=== PATIENT | female | born 1970 | race Caucasian/White ===

== ENCOUNTER → 2016-09-13 | Outpatient (CLI) | payer OTHER ==
[~2016-09-13] MED LIST: /MOXI40TA OR; AMIT25TA2; AMIT25TA2 OR; GENT0.3S34 OU; ISOVUE-M 300 61% 15ML VIAL (Q9967) As Ordered ONE; LIDOCAINE 1% SDV INJ 30 ML VIAL As Ordered ONE; MELOPOW; ONE A DAY WOMANS PO; OXYC-208 PO; OXYC10TA12 PO; SOMA350T PO; TPS CREAM TOP; TRAM50TA2; TRAM50TA2 OR; TRAM50TA2 PO; UNIS25TA2 PO; UNISOM; VICO5TAB; VICO5TAB OR; VICO5TAB PO; VITMTA PO; diazePAM 5 MG TAB As Ordered ONE; methylPREDNISolone SUSP 40 MG/ML (DEPO-medrol) VIAL (J1030) As Ordered ONE; multivitamin OR; oxyCODONE 5MG TAB As Ordered ONE; unisom OR; zipsor
--- NOTE | 2016-09-13 17:17 | REP ---
Sacrum and coccyx: Limited study two views: History: Caudal epidural for pain. 10 seconds of fluoroscopy time is reported. Findings: A sequence of two fluoroscopically obtained intraprocedural spot radiographs of the sacrum and coccyx demonstrate needle position and contrast injection associated with caudal epidural injection procedure. Signed by J Carlos Rucker MD 09/14/2016 08:15 A
--- NOTE | 2016-09-15 00:22 | ECWPNPC ---
PATIENT NAME: RITU TURCIOS : 1970 GENDER: FEMALE VISIT DATE: 09/13/2016 DISCHARGE DATE: 09/13/16 1446 VISIT LOCKED DATE TIME: PHYSICIAN: LORENE KOHLI RESOURCE: LORENE KOHLI REASON FOR APPOINTMENT 1. CAUDAL HISTORY OF PRESENT ILLNESS HISTORY OF PRESENT ILLNESS: PAIN THE PATIENT DESCRIBES THE PAIN... FALL RISK SCREENING: SCREENING :NO FALLS IN THE PAST YEAR CURRENT MEDICATIONS TAKING CARVEDILOL 25 MG TABLET ORALLY BID, NOTES: 09-13-16429 TAKING TRAMADOL HCL 50 MG TABLET 1 TABLET NEEDED ORALLY EVERY 6 HRS PRN PAIN MDD=4, NOTES: 09-13-16429 TAKING CYCLOBENZAPRINE HCL 10 MG TABLET 1 TABLET ORALLY THREE TIMES A DAY, NOTES: [id number] TAKING NORCO 10-325 MG TABLET 1 TABLET NEEDED ORALLY EVERY 6 HRS PRN MDD=4, NOTES: 09-13-16429 NOT-TAKING PYRIDIUM 100 MG TABLET 1 TABLET AFTER MEALS ORALLY THREE TIMES A DAY NOT-TAKING MOBIC 15 MG TABLET 1 TABLET ORALLY ONCE A DAY NOT-TAKING LOSARTAN POTASSIUM 100 MG TABLET 1 TABLET ORALLY ONCE A DAY NOT-TAKING NITROFURANTOIN-MACROBID 100 MG 7D 100 MG CAPSULE ONE CAPSULE ORALLY TWICE A DAY NOT-TAKING VESICARE 10 MG TABLET 1 TABLET ORALLY ONCE A DAY NOT-TAKING PYRIDIUM 200 MG TABLET 1 TABLET AFTER MEALS ORALLY THREE TIMES A DAY NOT-TAKING MACROBID 100 MG CAPSULE 1 CAPSULE WITH FOOD ORALLY EVERY 12 HRS MEDICATION LIST REVIEWED AND RECONCILED WITH THE PATIENT PAST MEDICAL HISTORY HEMATURIA KIDNEY STONES CHRONIC BACK PAIN - WITH DORSAL STIMULATOR 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 NEW PATIENT PAIN DIARY TODAY'S VISITNOTES FROM 0-10, WHAT LEVEL IS YOUR PAIN TODAY?0 PAIN CLINIC PFS, CLERGY, PUBLIC HEALTH REFERRALS PFS REFERRAL NEEDED?NO CLERGY REFERRAL NEEDED?NO PUBLIC HEALTH REFERRAL NEEDED?NO WAS THE PROVIDER NOTIFIED OF ANY PERTINENT INFO?NO PFS REFERRAL NEEDED?NO CLERGY REFERRAL NEEDED?NO PUBLIC HEALTH REFERRAL NEEDED?NO WAS THE PROVIDER NOTIFIED OF ANY PERTINENT INFO?NO REVIEW OF SYSTEMS CONSTITUTIONAL: ANY CHANGE IN YOUR MEDICAL CONDITION? NO . CHILLS NO . FEVER NO . INFECTION: DO YOU HAVE NEW INFECTIONS? NO . DO YOU HAVE HISTORY OF MRSA? NO . MUSCULOSKELETAL: ANY NEW PATTERNS OF PAIN OR NUMBNESS? NO . GASTROENTEROLOGY: ANY NEW CHANGE IN BOWEL CONTROL? NO . GENITOURINARY: ANY NEW CHANGE IN BLADDER CONTROL? NO . IS THERE A CHANCE YOU COULD BE ? NO . HEMATOLOGY/LYMPH: DO YOU TAKE ANY BLOOD THINNERS? (FOR EXAMPLE- COUMADIN, PLAVIX, AGGRENOX, PLATEL, PRADAXA, OR XARELTO) NO . WHEN WAS YOUR LAST DOSE? DATE: TIME: . NEUROLOGY: HAVE YOU FALLEN IN THE PAST 6 MONTHS? NO . ANY NEW EXTREMITY NUMBNESS OR WEAKNESS? NO . CARDIOLOGY: DO YOU HAVE A PACEMAKER OR DEFIBRILLATOR? NO . RESPIRATORY: HAVE YOU BEEN SICK IN THE PAST WEEK? NO . FEVER NO . FLU LIKE SYMPTOMS? NO . COUGH NO . INTEGUMENTARY: DO YOU HAVE ANY RASHES OR OPEN SORES? NO . ALLERGIC/IMMUNO: ARE YOU ALLERGIC TO SHELLFISH OR IV DYE? NO . ANY NEW ALLERGIES? NO . PSYCHIATRIC: DO YOU HAVE THOUGHTS OF HURTING YOURSELF OR SOMEONE ELSE? NO . ARE YOU ABUSED, NEGLECTED, OR IN AN UNSAFE ENVIRONMENT? NO . ENDOCRINOLOGY: ARE YOU DIABETIC? NO . OTHER: DO YOU NEED ANY PRESCRIPTIONS? NO . IF YES, PLEASE LIST: ____ . ANY NEW PROBLEMS WITH YOUR MEDICATIONS? NO . WHEN DID YOU LAST EAT? ____ . WHEN DID YOU LAST DRINK? _[id number]___ . WHAT DID YOU LAST DRINK? ____[id number] . NAME OF PERSON DRIVING YOU HOME? ____ . DO YOU HAVE ANY OTHER QUESTIONS OR CONCERNS NO . REVIEWED BY: PROVIDER: . VITAL SIGNS WT 140 LBS, HT 5'1", BMI 26.45 INDEX, BP 167/102 L ARM, REPEAT BP 170/114 L ARM, HR 88 /MIN, RR 16 /MIN, TEMP 97.0 F, OXYGEN SAT % 99, SAFE IN ENV? (Y/N) Y, NA INITIALS TL 1307, REVIEWED BY: KGHIGH BP 167/102, 170/114- TL. ASSESSMENTS POSTLAMINECTOMY SYNDROME, NOT ELSEWHERE CLASSIFIED - M96.1 (PRIMARY) PROCEDURES PN CAUDAL EPIDURALS PRE PROCEDURE DIAGNOSIS LUMBAR POST LAMINECTOMY PAIN SYNDROME POST PROCEDURE DIAGNOSIS LUMBAR POST LAMINECTOMY PAIN SYNDROME PROCEDURE CAUDAL EPIDURAL STEROID INJECTION UNDER FLUOROSCOPIC GUIDANCE. SURGEON DR. LORENE KOHLI PULP MACHINE OPERATOR NONE ANESTHESIA LOCAL PRE PROCEDURE NOTE THE PATIENT HAS HISTORY OF CHRONIC LOW BACK PAIN. I EVALUATE THE PATIENT AND REVIEWED THE CHART. I WENT OVER THE RISKS, ALTERNATIVES, AND BENEFITS ASSOCIATED WITH THIS PROCEDURE. THE PATIENT WOULD LIKE TO PROCEED AND GIVE CONSENT TO PERFORMED THE PROCEDURE. THE PATIENT DENIES UNEXPLAINABLE WEIGHT LOSS, FEVER, CHILLS, OR NEW CHANGES IN URINARY OR BOWEL CONTROL. DESCRIPTION OF PROCEDURE THE PATIENT WAS BROUGHT TO THE PROCEDURE ROOM AND PLACED IN THE PRONE POSITION. THE LUMBOSACRAL AREA WAS CLEANED WITH BETADINE SOLUTION AND DRAPED ASEPTICALLY. THE PROCEDURE WAS DONE UNDER STERILE CONDITIONS. I CHECKED LATERALITY AND THE LEVEL WHERE THE PROCEDURE WAS GOING TO BE PERFORMED WITH THE PATIENT AND THE SUPPORTING STAFF AT THE MOMENT OF THE TIME OUT IN THE PROCEDURE ROOM. UNDER FLUOROSCOPIC GUIDANCE, THE TARGET POINT WAS SELECTED AT THE EPIDURAL SPACE BELOW THE SACROCOCCYGEAL LIGAMENT. LIDOCAINE 0.5% WAS USE TO NUMB THE SKIN AND THE SUBCUTANEOUS TISSUE BELOW IT. AN EPIDURAL TUOHY NEEDLE, 17-GAUGE, WAS ADVANCED UNDER FLUOROSCOPIC GUIDANCE AND FOLLOWING PATIENT FEEDBACK UNTIL THE EPIDURAL SPACE WAS REACHED 6 CM DEEP INTO THE SKIN BY THE LOSS OF RESISTANCE TECHNIQUE. ISOVUE M DYE 30%, 0.25 ML, WAS INJECTED SHOWING ADEQUATE SPREAD OF THE DYE. THEN, A SOLUTION OF 6 ML OF NORMAL SALINE WITH DEPO-MEDROL 60 MG WAS INJECTED SLOWLY FOLLOWING THE PATIENT FEEDBACK. THERE WAS NO EVIDENCE OF BLOOD, PARESTHESIA OR CEREBROSPINAL FLUID DURING THE PROCEDURE. THE PATIENT WAS SENT TO THE RECOVERY ROOM. THE PATIENT WAS MOVING THE EXTREMITIES AND DOING WELL. THERE WAS NO COMPLICATION DURING THE PROCEDURE. FLUOROSCOPY TIME WAS 10 SECONDS POST PROCEDURE NOTE THE PATIENT WILL BE SEEN IN A FOLLOW UP IN THE NEXT FEW WEEKS. INSTRUCTIONS WERE GIVEN, QUESTIONS WERE ANSWERED, AND THE PATIENT EXPRESSED UNDERSTANDING AND AGREES WITH THE PLAN. INSTRUCTIONS WERE GIVEN, QUESTIONS WERE ANSWERED, PATIENT REPORTS UNDERSTANDING AND AGREES WITH THE PLAN. I, SHAGGY WILSON, DOCUMENTED THE ABOVE INFORMATION ACTING A SCRIBE FOR DR. KOHLI. I HAVE REVIEWED THE ABOVE DOCUMENT, WRITTEN BY SHAGGY WILSON SCRIBDebra AND I VERIFY THAT IT IS ACCURATE. [facility] FLUORO GUIDE SPINE INJECTION (PAIN)[id number] PROCEDURE CODES 61124 LUMBAR/SACRAL W/ IMAGING 6045F RADXPS IN END [id number] PXD FOLLOW UP 3 WEEKS ELECTRONICALLY SIGNED BY LORENE KOHLI MD ON 09/14/2016 AT 08:15 PM EST DISCLAIMER : THIS IS A VISIT SUMMARY EXTRACTED FROM THE [employer] CHART. IT IS NOT A COPY OF THE [employer] PROGRESS NOTE. MTDD
== END ==
LOC: M PAIN 13:00
PROVIDERS: ATTEND Anesthesiology
DX: G89.29 Other chronic pain (principal); M96.1 Postlaminectomy syndrome, not elsewhere classified; N18.9 Chronic kidney disease, unspecified; Z88.9 Allergy status to unspecified drugs, medicaments and biological substances; Z79.891 Long term (current) use of opiate analgesic; Z79.899 Other long term (current) drug therapy; Z96.9 Presence of functional implant, unspecified
CPT/HCPCS: 62323; J1030; Q9967

== ENCOUNTER → 2016-10-04 | Outpatient (CLI) | payer OTHER ==
[~2016-10-04] MED LIST changes: -ISOVUE-M 300 61% 15ML VIAL (Q9967) As Ordered ONE; -LIDOCAINE 1% SDV INJ 30 ML VIAL As Ordered ONE; -diazePAM 5 MG TAB As Ordered ONE; -methylPREDNISolone SUSP 40 MG/ML (DEPO-medrol) VIAL (J1030) As Ordered ONE; -oxyCODONE 5MG TAB As Ordered ONE
--- NOTE | 2016-10-20 01:31 | ECWPNPC ---
PATIENT NAME: RITU TURCIOS : 1970 GENDER: FEMALE VISIT DATE: 10/04/2016 DISCHARGE DATE: 10/04/16 1539 VISIT LOCKED DATE TIME: PHYSICIAN: YULISA RODRIGUZE RESOURCE: YULISA RODRIGUEZ REASON FOR APPOINTMENT 1. BACK HISTORY OF PRESENT ILLNESS HISTORY OF PRESENT ILLNESS: PAIN THE PATIENT DESCRIBES THE PAIN... FALL RISK SCREENING: SCREENING :NO FALLS IN THE PAST YEAR TODAY'S VISIT: NOTES: IS S/P CAUDAL EPIDURAL ON 09/13/16. HAD NEAR 100 % PAIN RELIEF IN RIGHT LEG. CONTINUED TO HAVE PAIN IN LOW BACK DID NOT AUTH INJECTION TO THAT AREA. IS NOW STARTING TO HAVE SOME RETURN OF LEFT LATERARL AND POSTERIOR THIGH PAIN. RATES PAIN TODAY 7/10 IN BACK AND 3/10 IN LEG. THIS IS AFTER A LONG DAY AT WORK. STILL HAS NUMBNESS IN TOES RIGHT FOOT.. CURRENT MEDICATIONS TAKING CARVEDILOL 25 MG TABLET ORALLY BID, NOTES: 09-13-16429 TAKING TRAMADOL HCL 50 MG TABLET 1 TABLET NEEDED ORALLY EVERY 6 HRS PRN PAIN MDD=4, NOTES: 09-13-16429 TAKING CYCLOBENZAPRINE HCL 10 MG TABLET 1 TABLET ORALLY THREE TIMES A DAY, NOTES: 08-28-16 2100 TAKING NORCO 10-325 MG TABLET 1 TABLET NEEDED ORALLY EVERY 6 HRS PRN MDD=4, NOTES: 09-13-16429 TAKING SPIRONOLACTONE 25 MG TABLET 1 TABLET ORALLY DAILY NOT-TAKING PYRIDIUM 100 MG TABLET 1 TABLET AFTER MEALS ORALLY THREE TIMES A DAY NOT-TAKING MOBIC 15 MG TABLET 1 TABLET ORALLY ONCE A DAY NOT-TAKING LOSARTAN POTASSIUM 100 MG TABLET 1 TABLET ORALLY ONCE A DAY NOT-TAKING NITROFURANTOIN-MACROBID 100 MG 7D 100 MG CAPSULE ONE CAPSULE ORALLY TWICE A DAY NOT-TAKING VESICARE 10 MG TABLET 1 TABLET ORALLY ONCE A DAY NOT-TAKING PYRIDIUM 200 MG TABLET 1 TABLET AFTER MEALS ORALLY THREE TIMES A DAY NOT-TAKING MACROBID 100 MG CAPSULE 1 CAPSULE WITH FOOD ORALLY EVERY 12 HRS MEDICATION LIST REVIEWED AND RECONCILED WITH THE PATIENT PAST MEDICAL HISTORY HEMATURIA KIDNEY STONES CHRONIC BACK PAIN - WITH DORSAL STIMULATOR 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 NEW PATIENT PAIN DIARY TODAY'S VISITNOTES FROM 0-10, WHAT LEVEL IS YOUR PAIN TODAY?0 PAIN CLINIC PFS, CLERGY, PUBLIC HEALTH REFERRALS PFS REFERRAL NEEDED?NO CLERGY REFERRAL NEEDED?NO PUBLIC HEALTH REFERRAL NEEDED?NO WAS THE PROVIDER NOTIFIED OF ANY PERTINENT INFO?NO PFS REFERRAL NEEDED?NO CLERGY REFERRAL NEEDED?NO PUBLIC HEALTH REFERRAL NEEDED?NO WAS THE PROVIDER NOTIFIED OF ANY PERTINENT INFO?NO REVIEW OF SYSTEMS CONSTITUTIONAL: ANY CHANGE IN YOUR MEDICAL CONDITION? NO . CHILLS NO . FEVER NO . INFECTION: DO YOU HAVE NEW INFECTIONS? NO . DO YOU HAVE HISTORY OF MRSA? NO . MUSCULOSKELETAL: ANY NEW PATTERNS OF PAIN OR NUMBNESS? NO . GASTROENTEROLOGY: ANY NEW CHANGE IN BOWEL CONTROL? NO . GENITOURINARY: ANY NEW CHANGE IN BLADDER CONTROL? NO . IS THERE A CHANCE YOU COULD BE ? NO . HEMATOLOGY/LYMPH: DO YOU TAKE ANY BLOOD THINNERS? (FOR EXAMPLE- COUMADIN, PLAVIX, AGGRENOX, PLATEL, PRADAXA, OR XARELTO) NO . WHEN WAS YOUR LAST DOSE? DATE: TIME: . NEUROLOGY: HAVE YOU FALLEN IN THE PAST 6 MONTHS? NO . ANY NEW EXTREMITY NUMBNESS OR WEAKNESS? NO . CARDIOLOGY: DO YOU HAVE A PACEMAKER OR DEFIBRILLATOR? NO . RESPIRATORY: HAVE YOU BEEN SICK IN THE PAST WEEK? NO . FEVER NO . FLU LIKE SYMPTOMS? NO . COUGH NO . INTEGUMENTARY: DO YOU HAVE ANY RASHES OR OPEN SORES? NO . ALLERGIC/IMMUNO: ARE YOU ALLERGIC TO SHELLFISH OR IV DYE? NO . ANY NEW ALLERGIES? NO . PSYCHIATRIC: DO YOU HAVE THOUGHTS OF HURTING YOURSELF OR SOMEONE ELSE? NO . ARE YOU ABUSED, NEGLECTED, OR IN AN UNSAFE ENVIRONMENT? NO . ENDOCRINOLOGY: ARE YOU DIABETIC? NO . OTHER: DO YOU NEED ANY PRESCRIPTIONS? YES, TRAMADOL, CYCLOBENZAPRINE, NORCO . IF YES, PLEASE LIST: ____ . ANY NEW PROBLEMS WITH YOUR MEDICATIONS? NO . WHEN DID YOU LAST EAT? ____ . WHEN DID YOU LAST DRINK? ____ . WHAT DID YOU LAST DRINK? ____ . NAME OF PERSON DRIVING YOU HOME? ____ . DO YOU HAVE ANY OTHER QUESTIONS OR CONCERNS YES, SAW PA AT DR. SHEETS'S OFFICE 09/28 AND SHE IS SCHEDULED TO RETURN 11/09 TO DISCUSS FUSION.&NBSP;. REVIEWED BY: PROVIDER: YULISA TUCKERP . VITAL SIGNS WT 157.8 LBS, HT 5'1", BMI 29.81 INDEX, BP 176/89 R ARM, REPEAT BP 182/91 L ARM, HR 72 /MIN, RR 16 /MIN, TEMP 97.7 F, OXYGEN SAT % 99, NA INITIALS TL 1425, REVIEWED BY: ADELEVATEJose D BP, PT STATES HER DR IS AWARE, SHE WAS JUST PUT ON A 3RD BP MEDICATION 1 WEEK AGO, PT WEIGHED ON SCALE- TL. EXAMINATION GENERAL EXAMINATION: PSYCHALERT , ORIENTED X 3 , APPROPRIATE MOOD AND AFFECT . LUNGS:CLEAR TO AUSCULTATION BILATERALLY. HEART:HEART RATE REGULAR. MUSCULOSKELETAL:POINT TENDERNESS OVER LUMBAR SPINOUS PROCESSES AND OVER RIGHT SACRUM. SLOW TO RISE TO STANDING POSITION. SLIGHT WEAKNESS NOTED WITH FLEXION AND EXTENSION OF THE RIGHT LOWER EXTREMITY DISTALLY AND PROXIMALLY TENDERNESS NOTED WITH PALPATION OVER THE RIGHT SACROILIAC JOINT AND RIGHT TROCHANTER.. ASSESSMENTS LUMBAR POST-LAMINECTOMY SYNDROME - M96.1 (PRIMARY) LUMBAR RADICULOPATHY - M54.16 CHRONIC PRESCRIPTION OPIATE USE - Z79.899 TREATMENT LUMBAR POST-LAMINECTOMY SYNDROME REFILL TRAMADOL HCL TABLET, 50 MG, 1 TABLET NEEDED, ORALLY, EVERY 6 HRS PRN PAIN MDD=4, 30 DAYS, 120, REFILLS 4 REFILL CYCLOBENZAPRINE HCL TABLET, 10 MG, 1 TABLET, ORALLY, THREE TIMES A DAY, 30 DAY(S), 90, REFILLS 1 REFILL NORCO TABLET, 10-325 MG, 1 TABLET NEEDED, ORALLY, EVERY 6 HRS PRN MDD=4, 30 DAYS, 120, REFILLS 0 SPINAL INJECTION PROCEDURES TRANSFORAMINAL EPIDURAL YASIRYULISA HERNÁNDEZ 10/04/2016 3:24:40 PM > L4, L5, S1 TRANSFORAMINAL ON RIGHT NOTES: LUMBAR EPIDURAL INJECTION: YOUR PROCEDURE MATERIAL WAS PRINTED,LUMBAR EPIDURAL INJECTION: YOUR PROCEDURE MATERIAL WAS PRINTED,WHAT IS LUMBAR EPIDURAL INJECTION? MATERIAL WAS PRINTED. CLINICAL NOTES: ISTOP REGISTRY REVIEWED AND DEMNOSTRATES COMPLLIANCE. BRINGS IN MEDICATIONS WHICH IS APPROPRIATE FOR WHAT WAS DISPENSED. RECENT URINE TOXICOLOGY REVIEWED. NO UNAUTHORIZED MEDICATIONS. NO ILLICIT SUBSTANCES AND PRESCRIBED MEDICATIONS WERE PRESENT. PROCEDURE CODES FA211 ESTABILISHED PATIENT [facility] FACILITY CHARGE DISPOSITION & COMMUNICATION FOLLOW UP REASON: CHECK AUTH FOR TRANSFORAMINAL L4, L5, S1 ELECTRONICALLY SIGNED BY YOUSIF DANIELS ON 10/19/2016 AT 01:19 PM EST DISCLAIMER : THIS IS A VISIT SUMMARY EXTRACTED FROM THE [employer] CHART. IT IS NOT A COPY OF THE [employer] PROGRESS NOTE. CHELSEA
== END ==
LOC: M PAIN 14:20
PROVIDERS: ATTEND Nurse Practitioner Family
DX: Z09 Encounter for follow-up examination after completed treatment for conditions other than malignant neoplasm (principal); G89.29 Other chronic pain; M96.1 Postlaminectomy syndrome, not elsewhere classified; M54.16 Radiculopathy, lumbar region; R31.9 Hematuria, unspecified; Z88.5 Allergy status to narcotic agent; Z88.8 Allergy status to other drugs, medicaments and biological substances; Z79.891 Long term (current) use of opiate analgesic; Z79.899 Other long term (current) drug therapy

== ENCOUNTER → 2017-01-25 | Outpatient (CLI) | payer OTHER ==
--- NOTE | 2017-01-26 09:20 | REP ---
MR LUMBAR SPINE WITHOUT CONTRAST: HISTORY: Paresthesias. COMPARISON: 08/08/2016. Decreased signal intensity on T2-weighted images is present in the L5-S1 intervertebral disc. The disc is decreased in height. These findings are consistent with disc degeneration. There is no disc bulge or herniation at the L1-2 level. The L1 nerves exit the neural foramina without compression. A diffuse disc bugle is present at the L2-3 level. There is minimal compression of the thecal sac. There is hypertrophy of the posterior articulating facets. The L2 nerves exit the neural foramina without compression. A diffuse disc bulge is present at the L3-4 level. There is hypertrophy of the ligamenta flava and posterior articulating facets. These findings produce minimal central canal stenosis. The L3 nerves exit the neural foramina without compression. A diffuse disc bulge is present at the L4-5 level. There is hypertrophy of the ligamenta flava and posterior articulating facets. These findings produce minimal central canal stenosis. The L4 nerves exit the neural foramina without compression. A diffuse disc bulge and small right paracentral disc extrusion are present at the L5-S1 level. There is minimal compression of the thecal sac and right S1 nerve as it exits the thecal sac. There is hypertrophy of the posterior articulating facets. The L5 nerves exit the neural foramina without compression. A right laminectomy defect is present. Scar tissue is present in the right lateral aspect of the spinal canal. The scar tissue involves the right S1 nerve. The conus medullaris is normal in appearance terminating at the level of the T12-L1 intervertebral disc. Increased signal intensity on T2-weighted images is present in the endplates of the L5 and S1 vertebral bodies. This represents degenerative change. IMPRESSION: 1. Diffuse disc bulge at the L2-3 level with minimal thecal sac compression. 2. Minimal central canal stenosis at the L3-4 and L4-5 levels secondary to disc bulge ligamentous and facet hypertrophy. 3. Diffuse disc bulge and small right paracentral disc extrusion at the L5-S1 level with minimal compression of the thecal sac and right S1 nerve as it exits the thecal sac. A right laminectomy defect is present. Scar tissue involves the right S1 nerve. There is no significant change compared to the previous study. Signed by Erwin Vergara MD 01/26/2017 09:28 A
== END ==
LOC: M RAD 18:03
PROVIDERS: ATTEND Orthopaedic Surgery
DX: M47.26 Other spondylosis with radiculopathy, lumbar region (principal); Z98.890 Other specified postprocedural states; M51.26 Other intervertebral disc displacement, lumbar region

== ENCOUNTER → 2017-04-05 | Outpatient (CLI) | payer OTHER ==
[~2017-04-05] MED LIST changes: +CARV25TA PO; +LOSA100T36 PO
--- NOTE | 2017-04-21 00:37 | ECWPNPC ---
PATIENT NAME: RITU TURCIOS : 1970 GENDER: FEMALE VISIT DATE: 04/05/2017 DISCHARGE DATE: 04/05/17 09 VISIT LOCKED DATE TIME: PHYSICIAN: YULISA RODRIGUEZ RESOURCE: YULISA RODRIGUEZ REASON FOR APPOINTMENT 1. BACK HISTORY OF PRESENT ILLNESS HISTORY OF PRESENT ILLNESS: PAIN THE PATIENT DESCRIBES THE PAIN... FALL RISK SCREENING: SCREENING :NO FALLS IN THE PAST YEAR TODAY'S VISIT: NOTES: CONTINUED AND INCREASE BACK PAIN AND IS BEING SCHEDULED FOR LUMBAR FUSION WITH DR SHEETS 04/24/17. PAIN IN CENTER BACK AND DOWN LEFT LEG. RATES PAIN 8/10. DESCRIBES PAIN CONSTANT AND SHARP.. CURRENT MEDICATIONS TAKING CARVEDILOL 25 MG TABLET ORALLY BID TAKING SPIRONOLACTONE 25 MG TABLET 1 TABLET ORALLY TWICE A DAY TAKING TRAMADOL HCL 50 MG TABLET 1 TABLET NEEDED ORALLY EVERY 6 HRS PRN PAIN MDD=4 TAKING CYCLOBENZAPRINE HCL 10 MG TABLET 1 TABLET ORALLY THREE TIMES A DAY TAKING NORCO 10-325 MG TABLET 1 TABLET NEEDED ORALLY EVERY 6 HRS PRN MDD=4 NOT-TAKING PYRIDIUM 100 MG TABLET 1 TABLET AFTER MEALS ORALLY THREE TIMES A DAY NOT-TAKING MOBIC 15 MG TABLET 1 TABLET ORALLY ONCE A DAY NOT-TAKING LOSARTAN POTASSIUM 100 MG TABLET 1 TABLET ORALLY ONCE A DAY NOT-TAKING NITROFURANTOIN-MACROBID 100 MG 7D 100 MG CAPSULE ONE CAPSULE ORALLY TWICE A DAY NOT-TAKING VESICARE 10 MG TABLET 1 TABLET ORALLY ONCE A DAY NOT-TAKING PYRIDIUM 200 MG TABLET 1 TABLET AFTER MEALS ORALLY THREE TIMES A DAY NOT-TAKING MACROBID 100 MG CAPSULE 1 CAPSULE WITH FOOD ORALLY EVERY 12 HRS MEDICATION LIST REVIEWED AND RECONCILED WITH THE PATIENT PAST MEDICAL HISTORY HEMATURIA KIDNEY STONES CHRONIC BACK PAIN - WITH DORSAL STIMULATOR 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 ALLERGIES BACTRIM DS: DYSPNEA: ALLERGY PERCOCET: ITCHING: SIDE EFFECTS KEFLEX: RASH AND HIVES: ALLERGY SURGICAL HISTORY OVARIAN CYSTS DORSAL STIMULATOR 2011 LITHOTRIPSY 2006 CYSTO; BLADDER BIOPSIES AND FULGERATION 06/24/2013 DISCECTOMY DORASAL STIMULATOR REMOVED 11/09 SOCIAL HISTORY GENERAL: TOBACCO USE ARE YOU A:NONSMOKER ANABAPTIST [id number] SABIANISM LEARNING BARRIERS / SPECIAL NEEDS CHANGE FROM LAST VISIT?NO BARRIERS TO LEARNING?NO HEARING IMPAIRED?NO VISION IMPAIRED?YES :CORRECTIVE LENSES COGNITIVELY IMPAIRED?NO READINESS TO LEARN?YES LEARNING PREFERENCES?NO LEARNING CAPABILITIES PRESENT?YES EMOTIONAL BARRIERS?NO SPECIAL DEVICES?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?NO NEW PATIENT PAIN DIARY TODAY'S VISITNOTES FROM 0-10, WHAT LEVEL IS YOUR PAIN TODAY?0 PAIN CLINIC PFS, CLERGY, PUBLIC HEALTH REFERRALS PFS REFERRAL NEEDED?NO CLERGY REFERRAL NEEDED?NO PUBLIC HEALTH REFERRAL NEEDED?NO WAS THE PROVIDER NOTIFIED OF ANY PERTINENT INFO?NO HAS THE PATIENT BEEN EDUCATED REGARDING HIS/HER PLAN OF CARE?YES HAS THE PATIENT BEEN EDUCATED REGARDING PAIN, THE RISK FOR PAIN, THE IMPORTANCE OF EFFECTIVE PAIN MANAGEMENT, AND THE PAIN ASSESSMENT PROCESS?YES ADVANCE DIRECTIVES HEALTH CARE PROXY?NO WOULD YOU LIKE MORE INFORMATION?NO DO YOU HAVE A DNR?NO WOULD YOU LIKE MORE INFORMATION?NO LIVING WILL?NO WOULD YOU LIKE MORE INFORMATION?NO POWER OF ANALYTICS LEAD?NO WOULD YOU LIKE MORE INFORMATION?NO REVIEW OF SYSTEMS REVIEWED BY: PROVIDER: YULISA NOLEN . CONSTITUTIONAL: ANY CHANGE IN YOUR MEDICAL CONDITION? NO . CHILLS NO . FEVER NO . INFECTION: DO YOU HAVE NEW INFECTIONS? NO . DO YOU HAVE HISTORY OF MRSA? NO . MUSCULOSKELETAL: ANY NEW PATTERNS OF PAIN OR NUMBNESS? NO . GASTROENTEROLOGY: ANY NEW CHANGE IN BOWEL CONTROL? NO . GENITOURINARY: ANY NEW CHANGE IN BLADDER CONTROL? NO . IS THERE A CHANCE YOU COULD BE ? NO . HEMATOLOGY/LYMPH: DO YOU TAKE ANY BLOOD THINNERS? (FOR EXAMPLE- COUMADIN, PLAVIX, AGGRENOX, PLATEL, PRADAXA, OR XARELTO) NO . WHEN WAS YOUR LAST DOSE? DATE: TIME: . NEUROLOGY: HAVE YOU FALLEN IN THE PAST 6 MONTHS? NO . ANY NEW EXTREMITY NUMBNESS OR WEAKNESS? NO . CARDIOLOGY: DO YOU HAVE A PACEMAKER OR DEFIBRILLATOR? NO . RESPIRATORY: HAVE YOU BEEN SICK IN THE PAST WEEK? NO . FEVER NO . FLU LIKE SYMPTOMS? NO . COUGH NO . INTEGUMENTARY: DO YOU HAVE ANY RASHES OR OPEN SORES? NO . ALLERGIC/IMMUNO: ARE YOU ALLERGIC TO SHELLFISH OR IV DYE? NO . ANY NEW ALLERGIES? NO . PSYCHIATRIC: DO YOU HAVE THOUGHTS OF HURTING YOURSELF OR SOMEONE ELSE? NO . ARE YOU ABUSED, NEGLECTED, OR IN AN UNSAFE ENVIRONMENT? NO . ENDOCRINOLOGY: ARE YOU DIABETIC? NO . OTHER: DO YOU NEED ANY PRESCRIPTIONS? YES . IF YES, PLEASE LIST: ____ . ANY NEW PROBLEMS WITH YOUR MEDICATIONS? NO . WHEN DID YOU LAST EAT? ____ . WHEN DID YOU LAST DRINK? ____ . WHAT DID YOU LAST DRINK? ____ . NAME OF PERSON DRIVING YOU HOME? ____ . DO YOU HAVE ANY OTHER QUESTIONS OR CONCERNS NO . VITAL SIGNS WT 160 LBS, HT 5'1", BMI 30.23 INDEX, BP 179/94 MM HG, HR 92 /MIN, RR 16 /MIN, TEMP 99.4 F, OXYGEN SAT % 97%, NA INITIALS AW 0833, REVIEWED BY: CS. EXAMINATION GENERAL EXAMINATION: PSYCHALERT , ORIENTED X 3 , APPROPRIATE MOOD AND AFFECT . LUNGS:CLEAR TO AUSCULTATION BILATERALLY. HEART:HEART RATE REGULAR. MUSCULOSKELETAL:POINT TENDERNESS OVER LUMBAR SPINOUS PROCESSES AND OVER RIGHT SACRUM. SLOW TO RISE TO STANDING POSITION. SLIGHT WEAKNESS NOTED WITH FLEXION AND EXTENSION OF THE RIGHT LOWER EXTREMITY DISTALLY AND PROXIMALLY TENDERNESS NOTED WITH PALPATION OVER THE RIGHT SACROILIAC JOINT AND RIGHT TROCHANTER.. ASSESSMENTS LUMBAR POST-LAMINECTOMY SYNDROME - M96.1 (PRIMARY) LUMBAR RADICULOPATHY - M54.16 CHRONIC PRESCRIPTION OPIATE USE - Z79.899 TREATMENT LUMBAR POST-LAMINECTOMY SYNDROME REFILL NORCO TABLET, 10-325 MG, 1 TABLET NEEDED, ORALLY, EVERY 6 HRS PRN MDD=4, 30 DAYS, 120, REFILLS 0 START SOMA TABLET, 350 MG, 1 TABLET NEEDED, ORALLY, Q 8 HOURS PRN SPASM MDD=3, 30 DAY(S), 90, REFILLS 1 NOTES: WALK TOLERATED. DR SHEETS TO MANAGE MEDSIN IMMEDIATE POST OP PERIOD. CLINICAL NOTES: ISTOP REGISTRY REVIEWED AND DEMNOSTRATES COMPLLIANCE. BRINGS IN MEDICATIONS WHICH IS APPROPRIATE FOR WHAT WAS DISPENSED. RECENT URINE TOXICOLOGY REVIEWED. NO UNAUTHORIZED MEDICATIONS. NO ILLICIT SUBSTANCES AND PRESCRIBED MEDICATIONS WERE PRESENT. PREVENTIVE MEDICINE PAIN CLINIC TEACHING: MEDICATIONS SOMA. PROCEDURE CODES FA211 ESTABILISHED PATIENT [facility] FACILITY CHARGE DISPOSITION & COMMUNICATION FOLLOW UP MID MAY (REASON: BACK PAIN) ELECTRONICALLY SIGNED BY YOUSIF DANIELS ON 04/20/2017 AT 10:08 AM EDT DISCLAIMER : THIS IS A VISIT SUMMARY EXTRACTED FROM THE [employer] CHART. IT IS NOT A COPY OF THE [employer] PROGRESS NOTE. CHELSEA
== END ==
LOC: M PAIN 08:30
PROVIDERS: ATTEND Nurse Practitioner Family
DX: M96.1 Postlaminectomy syndrome, not elsewhere classified (principal); M54.16 Radiculopathy, lumbar region; N18.9 Chronic kidney disease, unspecified; Z88.1 Allergy status to other antibiotic agents; Z88.5 Allergy status to narcotic agent; Z88.8 Allergy status to other drugs, medicaments and biological substances; Z79.891 Long term (current) use of opiate analgesic; Z79.899 Other long term (current) drug therapy

== ENCOUNTER 2017-05-01 04:59 | Emergency (ER) | payer OTHER ==
[~2017-05-01] VITALS: Ht 154.9 cm; Wt 74.0 kg
[~2017-05-01 04:59] MED LIST changes: -CARV25TA PO; -LOSA100T36 PO
[2017-05-01] MEDS ORDERED: CARV25TA PO (05:09)
[2017-05-01] MEDS ORDERED: LOSA100T36 PO (05:09)
[2017-05-01] MEDS ORDERED: NS 1,000 ML IV ONE (06:15)
[2017-05-01 06:53] LABS: BASO % 0.7 % (0.0-1.0); EOS # 0.4 K/mm3 (0.0-0.50); EOS % 6.4 % (0.0-3.0); LARGE UNSTAINED CELL # 0.1 K/mm3 (0.0-0.4); LARGE UNSTAINED CELL % 1.1 % (0.0-4.0); LYMPH # 1.4 K/mm3 (1.5-4.5); LYMPH % 22.9 % (24.0-44.0); MEAN CORPUSCULAR HEMOGLOBIN 29.2 pg (27.0-33.0); MEAN CORPUSCULAR HGB CONC 31.9 g/dl (32.0-36.5); MEAN CORPUSCULAR VOLUME 91.6 fl (80.0-96.0); MONO # 0.2 K/mm3 (0.0-0.8); MONO % 3.8 % (0.0-5.0); NEUTROPHILS # 3.8 K/mm3 (1.8-7.7); NEUTROPHILS % 65.1 % (36.0-66.0); PLATELET COUNT, AUTOMATED 297 k/mm3 (150-450); RED CELL DISTRIBUTION WIDTH 13.5 % (11.5-14.5); WHITE BLOOD COUNT 5.9 K/mm3 (4.0-10.0)
[2017-05-01 07:01] LABS: ANION GAP 7 MEQ/L (8-16); BLOOD UREA NITROGEN 9 MG/DL (7-18); CALCIUM LEVEL 8.8 MG/DL (8.5-10.1); CARBON DIOXIDE LEVEL 28 MEQ/L (21-32); CHLORIDE LEVEL 104 MEQ/L (98-107); CREATININE FOR GFR 0.62 MG/DL (0.55-1.02); GLOMERULAR FILTRATION RATE > 60.0 (>58); GLUCOSE, FASTING 103 MG/DL (70-105); SODIUM LEVEL 139 MEQ/L (136-145)
--- NOTE | 2017-05-01 07:10 | REPUSA ---
CLINICAL HISTORY: Edema. COMMENTS: Real time sonography with duplex doppler of the right lower extremity was performed with attention to the major deep venous structures. Evaluation reveals the right common femoral, superficial femoral and popliteal veins to be completely compressible without intraluminal thrombus. There is normal spontaneous phasic flow and augmentation . The greater saphenous/common femoral vein junction is patent. IMPRESSION: No evidence of DVT in right lower extremity. Thank you for your kind referral of this patient.
[2017-05-01] MEDS ORDERED: METHYLNALTREXONE BROMIDE 12 MG/0.6 ML VIAL (RELISTOR) SC ONE (07:15)
--- NOTE | 2017-05-01 08:41 | REP ---
Clinical: Acute abdominal pain. Technique: Upright view of the chest with supine and upright views of the abdomen and pelvis. Findings: Frontal upright view of the chest demonstrates no acute cardiopulmonary process or free air below the diaphragm to suspect pneumoperitoneum. Supine and upright views of the abdomen and pelvis demonstrate nonspecific bowel gas pattern without obstruction or perforation. Fecal stasis and constipation cannot be excluded. No organomegaly. Vascular coils are identified in the left upper quadrant along with evidence for prior fixation at the L5-S1 level. Impression: Fecal stasis and constipation cannot be excluded. Otherwise, nonspecific bowel gas pattern. Signed by New Lora MD 05/01/2017 08:33 A
[2017-05-01] MEDS ORDERED: KETOROLAC 30 MG/ML VIAL (J1885) IV ONE (09:00)
[2017-05-01] MEDS ORDERED: ISOVUE-370 76% 100ML VIAL (Q9967) As Ordered ONE (11:29)
--- NOTE | 2017-05-01 12:01 | REP ---
Clinical: Abdominal pain. Technique: Axial contrast enhanced images from the lung bases to the pubic symphysis using the 100 ml Isovue 370 intravenous contrast material with coronal and sagittal re-formations. Comparison: 06/15/2016. Findings: Small to moderate amount of subcutaneous inflammatory stranding in the left anterolateral abdominopelvic wall with small foci of gas appreciated as well as moderate inflammatory type stranding and small multiloculated fluid in the left denise pelvis extending from approximately the L5 level to the pubic symphysis. Findings may reflect infectious/inflammatory changes related to recent surgery (images 81 - 120). The largest above-mentioned fluid collection is identified at the level of the superior pubic ramus measuring approximately 7.7 x 3.1 x 5.1 cm and causes subtle mass effect along the anterolateral margin of the bladder (images 110 - 120). Liver, spleen, pancreas, gallbladder, bilateral adrenal glands and right kidney are normal. Left kidney demonstrates prior embolization and atrophic changes. The enteric system demonstrates moderate fecal stasis without obstruction or perforation. Pelvis demonstrates relatively normal bladder and uterus/adnexa. No significant ascites. No significant pneumoperitoneum. No significant adenopathy. Abdominal aorta and vasculature appears normal. Musculoskeletal structures demonstrate age-related degenerative changes along with anterior fixation at the L5-L1 level. Impression: 1. Suspected infectious/inflammatory changes in the left denise pelvis as described above including small multiloculated fluid collections having mild mass effect on the bladder. 2. Moderate fecal stasis. No evidence for bowel obstruction or perforation. Signed by New Lora MD 05/01/2017 11:51 A
[2017-05-01] MEDS ORDERED: ONDANSETRON 4MG/2ML VIAL (J2405) IV ONE (12:30)
[2017-05-01] MEDS ORDERED: MORPHINE 4 MG/ML 1ML SYRINGE IV ONE (12:30)
[2017-05-01 13:41] VITALS: BP 182/89
== END 2017-05-01 13:43 | disposition home or self-care (01) ==
LOC: M ED 04:59
DX: K59.00 Constipation, unspecified (principal); Z87.891 Personal history of nicotine dependence; Z79.899 Other long term (current) drug therapy; Z88.8 Allergy status to other drugs, medicaments and biological substances; Z88.2 Allergy status to sulfonamides; Z88.1 Allergy status to other antibiotic agents
CPT/HCPCS: 74022; 74177; 80048; 83605; 85025; 87040; 93971; 96361; 96374; 96375; 99283; J1885; J2405; Q9967

== ENCOUNTER → 2017-07-28 | Outpatient (CLI) | payer OTHER ==
[~2017-07-28] MED LIST changes: +CARV25TA PO; +LOSA100T36 PO
--- NOTE | 2017-08-26 01:50 | ECWPNPC ---
PATIENT NAME: RITU TURCIOS : 1970 GENDER: FEMALE VISIT DATE: 07/28/2017 DISCHARGE DATE: 07/28/17 1447 VISIT LOCKED DATE TIME: PHYSICIAN: YULISA RODRIGUEZ RESOURCE: YULISA RODRIGUEZ HISTORY OF PRESENT ILLNESS HISTORY OF PRESENT ILLNESS: PAIN THE PATIENT DESCRIBES THE PAIN... FALL RISK SCREENING: SCREENING :NO FALLS IN THE PAST YEAR TODAY'S VISIT: NOTES: IS S/P LUMBAR FUSION 04/23/[address] Mitch SHEETS WHICH HAS ALMOST ELIMINATED THE RIGHT LEG PAIN. DOES STILL HAVE SOME BACK PAIN. WAS ABLE TO RETURN TO WORK THE END OF MAY. HAS BEEN ABLE TO ABSTAIN FROM ACTIVITIES WHICH COULD BE DAMAGING. STILL WITH RIGHT FOOT NUMBNESS BEFORE. IS ABLE TO SLEEP. IS USING THE NORCO ONLY 1-2 TIMES PER DAY WITH WORK. . CURRENT MEDICATIONS TAKING CARVEDILOL 25 MG TABLET ORALLY BID TAKING SPIRONOLACTONE 25 MG TABLET 1 TABLET ORALLY TWICE A DAY TAKING SOMA 350 MG TABLET 1 TABLET NEEDED ORALLY Q 8 HOURS PRN SPASM MDD=3 TAKING CYCLOBENZAPRINE HCL 10 MG TABLET 1 TABLET ORALLY THREE TIMES A DAY TAKING TRAMADOL HCL 50 MG TABLET 1 TABLET NEEDED ORALLY EVERY 6 HRS PRN PAIN MDD=4 TAKING NORCO 10-325 MG TABLET 1 TABLET NEEDED ORALLY EVERY 6 HRS PRN MDD=4 NOT-TAKING PYRIDIUM 100 MG TABLET 1 TABLET AFTER MEALS ORALLY THREE TIMES A DAY NOT-TAKING MOBIC 15 MG TABLET 1 TABLET ORALLY ONCE A DAY NOT-TAKING LOSARTAN POTASSIUM 100 MG TABLET 1 TABLET ORALLY ONCE A DAY NOT-TAKING NITROFURANTOIN-MACROBID 100 MG 7D 100 MG CAPSULE ONE CAPSULE ORALLY TWICE A DAY NOT-TAKING VESICARE 10 MG TABLET 1 TABLET ORALLY ONCE A DAY NOT-TAKING PYRIDIUM 200 MG TABLET 1 TABLET AFTER MEALS ORALLY THREE TIMES A DAY NOT-TAKING MACROBID 100 MG CAPSULE 1 CAPSULE WITH FOOD ORALLY EVERY 12 HRS MEDICATION LIST REVIEWED AND RECONCILED WITH THE PATIENT PAST MEDICAL HISTORY HEMATURIA KIDNEY STONES CHRONIC BACK PAIN - WITH DORSAL STIMULATOR 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 0. PAIN CLINIC PFS, CLERGY, PUBLIC HEALTH REFERRALS PFS REFERRAL NEEDED?NO CLERGY REFERRAL NEEDED?NO PUBLIC HEALTH REFERRAL NEEDED?NO WAS THE PROVIDER NOTIFIED OF ANY PERTINENT INFO?NO HAS THE PATIENT BEEN EDUCATED REGARDING HIS/HER PLAN OF CARE?YES HAS THE PATIENT BEEN EDUCATED REGARDING PAIN, THE RISK FOR PAIN, THE IMPORTANCE OF EFFECTIVE PAIN MANAGEMENT, AND THE PAIN ASSESSMENT PROCESS?YES ADVANCE DIRECTIVES HEALTH CARE PROXY?NO WOULD YOU LIKE MORE INFORMATION?NO DO YOU HAVE A DNR?NO WOULD YOU LIKE MORE INFORMATION?NO LIVING WILL?NO WOULD YOU LIKE MORE INFORMATION?NO POWER OF AVIONICS REPAIR TECHNICIAN?NO WOULD YOU LIKE MORE INFORMATION?NO REVIEW OF SYSTEMS REVIEWED BY: PROVIDER: . CONSTITUTIONAL: ANY CHANGE IN YOUR MEDICAL CONDITION? NO . CHILLS NO . FEVER NO . INFECTION: DO YOU HAVE NEW INFECTIONS? NO . DO YOU HAVE HISTORY OF MRSA? NO . MUSCULOSKELETAL: ANY NEW PATTERNS OF PAIN OR NUMBNESS? NO . GASTROENTEROLOGY: ANY NEW CHANGE IN BOWEL CONTROL? NO . GENITOURINARY: ANY NEW CHANGE IN BLADDER CONTROL? NO . IS THERE A CHANCE YOU COULD BE ? NO . HEMATOLOGY/LYMPH: DO YOU TAKE ANY BLOOD THINNERS? (FOR EXAMPLE- COUMADIN, PLAVIX, AGGRENOX, PLATEL, PRADAXA, OR XARELTO) NO . WHEN WAS YOUR LAST DOSE? DATE: TIME: . NEUROLOGY: HAVE YOU FALLEN IN THE PAST 6 MONTHS? NO . ANY NEW EXTREMITY NUMBNESS OR WEAKNESS? NO . CARDIOLOGY: DO YOU HAVE A PACEMAKER OR DEFIBRILLATOR? NO . RESPIRATORY: HAVE YOU BEEN SICK IN THE PAST WEEK? NO . FEVER NO . FLU LIKE SYMPTOMS? NO . COUGH NO . INTEGUMENTARY: DO YOU HAVE ANY RASHES OR OPEN SORES? NO . ALLERGIC/IMMUNO: ARE YOU ALLERGIC TO SHELLFISH OR IV DYE? NO . ANY NEW ALLERGIES? NO . PSYCHIATRIC: DO YOU HAVE THOUGHTS OF HURTING YOURSELF OR SOMEONE ELSE? NO . ARE YOU ABUSED, NEGLECTED, OR IN AN UNSAFE ENVIRONMENT? NO . ENDOCRINOLOGY: ARE YOU DIABETIC? NO . OTHER: DO YOU NEED ANY PRESCRIPTIONS? NO . IF YES, PLEASE LIST: ____ . ANY NEW PROBLEMS WITH YOUR MEDICATIONS? NO . WHEN DID YOU LAST EAT? ____ . WHEN DID YOU LAST DRINK? ____ . WHAT DID YOU LAST DRINK? ____ . NAME OF PERSON DRIVING YOU HOME? ____ . DO YOU HAVE ANY OTHER QUESTIONS OR CONCERNS NO . UROLOGY: BLOOD IN URINE INTERMITTANT. STILL FOLLOWS WITH UROLOGY . VITAL SIGNS WT 169.0 LBS, HT 5'1", BMI 31.93 INDEX, BP 115/82 MM HG, HR 82 /MIN, RR 16 /MIN, TEMP 98.2 F, OXYGEN SAT % 100%, NA INITIALS SC 14:16. EXAMINATION GENERAL EXAMINATION: GENERAL APPEARANCE:COLOR PINK, SKIN WARM AND DRY. LUNGS:CLEAR TO AUSCULTATION BILATERALLY. HEART:HEART RATE REGULAR. ABDOMEN:WELL HEALED ABD INCISION . MUSCULOSKELETAL:MUSCLE STRENGTH TESTING 5/5 BILATERAL LOWER EXTREMITIES. TENDER TO PALPATION OVER LUMBAR SPINOUS PROCESSES. RISES EASILY TO STANDING POSITION. POSTURE UPRIGHT. GAIT WIDEBASED, NONANTALGIC. ASSESSMENTS LUMBAR POST-LAMINECTOMY SYNDROME - M96.1 (PRIMARY) LUMBAR RADICULOPATHY - M54.16 CHRONIC PRESCRIPTION OPIATE USE - Z79.899 TREATMENT LUMBAR POST-LAMINECTOMY SYNDROME REFILL NORCO TABLET, 10-325 MG, 1 TABLET NEEDED, ORALLY, EVERY 6 HRS PRN MDD=4, 30 DAYS, 120, REFILLS 0 NOTES: UTOX TODAYCALL IF MEDS DUE. CLINICAL NOTES: ISTOP REGISTRY REVIEWED AND DEMNOSTRATES COMPLLIANCE. (REF # [id number]) BRINGS IN MEDICATIONS WHICH IS APPROPRIATE FOR WHAT WAS DISPENSED. RECENT URINE TOXICOLOGY REVIEWED. NO UNAUTHORIZED MEDICATIONS. NO ILLICIT SUBSTANCES AND PRESCRIBED MEDICATIONS WERE PRESENT. PROCEDURE CODES FA211 ESTABILISHED PATIENT [facility] CHARGE DISPOSITION & COMMUNICATION FOLLOW UP 3 MONTHS (REASON: LOW BACK PAIN) ELECTRONICALLY SIGNED BY YOUSIF DANIELS ON 08/24/2017 AT 08:50 AM EST DISCLAIMER : THIS IS A VISIT SUMMARY EXTRACTED FROM THE [employer] CHART. IT IS NOT A COPY OF THE [employer] PROGRESS NOTE. CHELSEA
== END ==
LOC: M PAIN 14:30
PROVIDERS: ATTEND Nurse Practitioner Family
DX: M96.1 Postlaminectomy syndrome, not elsewhere classified (principal); M54.16 Radiculopathy, lumbar region; Z79.899 Other long term (current) drug therapy; Z79.891 Long term (current) use of opiate analgesic; Z88.1 Allergy status to other antibiotic agents; Z88.8 Allergy status to other drugs, medicaments and biological substances

== ENCOUNTER → 2017-10-25 | Outpatient (CLI) | payer OTHER | LOC: M RAD 08:45 | DX: I15.0 Renovascular hypertension (principal) ==

== ENCOUNTER → 2017-11-21 | Outpatient (CLI) | payer OTHER | LOC: M PAIN 14:30 | DX: M96.1 Postlaminectomy syndrome, not elsewhere classified (principal); M54.16 Radiculopathy, lumbar region; Z79.891 Long term (current) use of opiate analgesic; Z79.899 Other long term (current) drug therapy; Z88.8 Allergy status to other drugs, medicaments and biological substances | CPT/HCPCS: G0463 ==

== ENCOUNTER 2017-11-23 13:18 | Emergency (ER) | payer OTHER ==
[2017-11-23 13:36] LABS: BASO % 0.4 % (0.0-1.0); EOS # 0.1 10^3/uL (0.0-0.50); EOS % 1.6 % (0.0-3.0); HEMATOCRIT 35.1 % (36.0-47.0); HEMOGLOBIN 10.8 g/dl (12.0-15.5); IMMATURE GRANULOCYTE % 0.4 % (0-3.0); LYMPH % 29.3 % (24.0-44.0); MEAN CORPUSCULAR HEMOGLOBIN 27.2 pg (27.0-33.0); MEAN CORPUSCULAR HGB CONC 30.8 g/dl (32.0-36.5); MEAN CORPUSCULAR VOLUME 88.4 fl (80.0-96.0); MONO # 0.5 10^3/uL (0.0-0.8); MONO % 7.7 % (0.0-5.0); NEUTROPHILS # 4.1 10^3/uL (1.8-7.7); NEUTROPHILS % 60.6 % (36.0-66.0); PLATELET COUNT, AUTOMATED 215 10^3/uL (150-450); RED BLOOD COUNT 3.97 10^6/uL (4.00-5.40); RED CELL DISTRIBUTION WIDTH 13.7 % (11.5-14.5); WHITE BLOOD COUNT 6.7 10^3/uL (4.0-10.0)
[2017-11-23 13:49] LABS: INR 1.06
[2017-11-23 14:11] LABS: ALBUMIN 3.7 GM/DL (3.2-5.2); ALBUMIN/GLOBULIN RATIO 1.16 (1.00-1.93); ALKALINE PHOSPHATASE 85 U/L (45-117); ALT/SGPT 23 U/L (12-78); ANION GAP 7 MEQ/L (8-16); AST/SGOT 16 U/L (7-37); BILIRUBIN,DIRECT 0.1 MG/DL (0.0-0.2); BILIRUBIN,TOTAL 0.4 MG/DL (0.2-1.0); BLOOD UREA NITROGEN 14 MG/DL (7-18); CALCIUM LEVEL 8.2 MG/DL (8.5-10.1); CARBON DIOXIDE LEVEL 24 MEQ/L (21-32); CHLORIDE LEVEL 111 MEQ/L (98-107); CK-MB VALUE MASS < 1.0 NG/ML (<3.6); CPK CREATINE PHOSPHOKINASE 63 U/L (26-192); CREATININE FOR GFR 0.59 MG/DL (0.55-1.30); GLOMERULAR FILTRATION RATE > 60.0 (>58); GLUCOSE, FASTING 78 MG/DL (70-100); MB/CK RELATIVE INDEX 1.58 (< OR =4); POTASSIUM SERUM 3.4 MEQ/L (3.5-5.1); SODIUM LEVEL 142 MEQ/L (136-145); TOTAL PROTEIN 6.9 GM/DL (6.4-8.2); TROPONIN I < 0.02 NG/ML (< 0.10)
== END 2017-11-23 14:48 | disposition home or self-care (01) ==
LOC: M ED 13:18
DX: I10 Essential (primary) hypertension (principal); R07.89 Other chest pain; Z79.899 Other long term (current) drug therapy; Z87.891 Personal history of nicotine dependence; Z88.2 Allergy status to sulfonamides; Z88.8 Allergy status to other drugs, medicaments and biological substances; Z88.1 Allergy status to other antibiotic agents
CPT/HCPCS: 71046

== ENCOUNTER → 2017-12-26 | Outpatient (REF) | payer OTHER ==
[2017-12-30 00:07] LABS: ALDOS/RENIN RATIO 18.7 (0.0-30.0); ALDOSTERONE 28.8 ng/dL (0.0-30.0)
== END ==
LOC: M LAB REF 19:27
DX: R31.9 Hematuria, unspecified (principal); I15.0 Renovascular hypertension
CPT/HCPCS: 84244

== ENCOUNTER → 2018-02-01 | Outpatient (CLI) | payer OTHER ==
[~2018-02-01] MED LIST changes: -/MOXI40TA OR; -AMIT25TA2; -AMIT25TA2 OR; -CARV25TA PO; -GENT0.3S34 OU; -LOSA100T36 PO; -MELOPOW; -ONE A DAY WOMANS PO; -OXYC-208 PO; -OXYC10TA12 PO; +PROPOFOL 200 MG/20 ML VIAL As Ordered; -SOMA350T PO; -TPS CREAM TOP; -TRAM50TA2; -TRAM50TA2 OR; -TRAM50TA2 PO; -UNIS25TA2 PO; -UNISOM; -VICO5TAB; -VICO5TAB OR; -VICO5TAB PO; -VITMTA PO; -multivitamin OR; -unisom OR; -zipsor
== END ==
LOC: M PAIN 14:30
DX: M96.1 Postlaminectomy syndrome, not elsewhere classified (principal); M54.16 Radiculopathy, lumbar region; M79.1 Myalgia; N18.9 Chronic kidney disease, unspecified; Z79.899 Other long term (current) drug therapy; Z88.1 Allergy status to other antibiotic agents; Z88.5 Allergy status to narcotic agent; Z88.8 Allergy status to other drugs, medicaments and biological substances
CPT/HCPCS: G0463

== ENCOUNTER → 2018-03-01 | Outpatient (CLI) | payer OTHER ==
[~2018-03-01] MED LIST changes: +BUPIVACAINE HCL 0.25% 10 ML VIAL As Ordered; +BUPIVACAINE HCL 0.25% 30 ML VIAL As Ordered; -PROPOFOL 200 MG/20 ML VIAL As Ordered; +TRIAMCINOLONE ACETONIDE SUSP 40 MG/ML VIAL (J3301) As Ordered; +diazePAM 5 MG TAB As Ordered; +oxyCODONE 5MG TAB As Ordered
== END ==
LOC: M PAIN 08:30
DX: G89.29 Other chronic pain (principal); M79.1 Myalgia; M54.16 Radiculopathy, lumbar region; N18.9 Chronic kidney disease, unspecified; Z79.899 Other long term (current) drug therapy; Z88.1 Allergy status to other antibiotic agents; Z88.5 Allergy status to narcotic agent; Z88.8 Allergy status to other drugs, medicaments and biological substances
CPT/HCPCS: J3301

== ENCOUNTER → 2018-04-03 | Outpatient (CLI) | payer OTHER | LOC: M PAIN 14:30 | DX: M79.1 Myalgia (principal); M54.16 Radiculopathy, lumbar region; Z79.899 Other long term (current) drug therapy; Z88.1 Allergy status to other antibiotic agents; Z88.5 Allergy status to narcotic agent; Z88.8 Allergy status to other drugs, medicaments and biological substances; N18.9 Chronic kidney disease, unspecified | CPT/HCPCS: G0463 ==

== ENCOUNTER → 2018-05-10 | Outpatient (CLI) | payer OTHER ==
[~2018-05-10] MED LIST changes: -diazePAM 5 MG TAB As Ordered; -oxyCODONE 5MG TAB As Ordered
== END ==
LOC: M PAIN 14:45
DX: M79.1 Myalgia (principal); M54.5 Low back pain; N28.9 Disorder of kidney and ureter, unspecified; Z79.891 Long term (current) use of opiate analgesic; Z79.899 Other long term (current) drug therapy; Z88.1 Allergy status to other antibiotic agents; Z88.5 Allergy status to narcotic agent; Z88.8 Allergy status to other drugs, medicaments and biological substances
CPT/HCPCS: J3301

== ENCOUNTER → 2018-05-31 | Outpatient (CLI) | payer OTHER | LOC: M PAIN 15:00 | DX: M79.10 Myalgia, unspecified site (principal); M54.16 Radiculopathy, lumbar region; M96.1 Postlaminectomy syndrome, not elsewhere classified; N18.9 Chronic kidney disease, unspecified; Z79.891 Long term (current) use of opiate analgesic; Z79.899 Other long term (current) drug therapy; Z88.1 Allergy status to other antibiotic agents; Z88.5 Allergy status to narcotic agent; Z88.8 Allergy status to other drugs, medicaments and biological substances | CPT/HCPCS: G0463 ==

== ENCOUNTER → 2018-06-20 | Outpatient (CLI) | payer OTHER | LOC: M RAD 16:13 | DX: M79.81 Nontraumatic hematoma of soft tissue (principal); M51.86 Other intervertebral disc disorders, lumbar region; M48.061 Spinal stenosis, lumbar region without neurogenic claudication; M25.78 Osteophyte, vertebrae; Z98.1 Arthrodesis status | CPT/HCPCS: 72148 ==

== ENCOUNTER → 2018-06-26 | Outpatient (CLI) | payer OTHER | LOC: M PAIN 11:30 | DX: M79.18 Myalgia, other site (principal); M54.16 Radiculopathy, lumbar region; M96.1 Postlaminectomy syndrome, not elsewhere classified; N18.9 Chronic kidney disease, unspecified; Z79.899 Other long term (current) drug therapy; Z88.1 Allergy status to other antibiotic agents; Z88.5 Allergy status to narcotic agent; Z88.8 Allergy status to other drugs, medicaments and biological substances | CPT/HCPCS: G0463 ==

== ENCOUNTER 2018-09-10 08:13 | Emergency (ER) | payer OTHER ==
[~2018-09-10] VITALS: Ht 154.9 cm; Wt 64.1 kg
[~2018-09-10 08:13] MED LIST changes: +/MOXI40TA OR; +AMIT25TA2; +AMIT25TA2 OR; -BUPIVACAINE HCL 0.25% 10 ML VIAL As Ordered; -BUPIVACAINE HCL 0.25% 30 ML VIAL As Ordered; +CARV25TA PO; +CLON0.2T; +FERR1TAB8; +GENT0.3S34 OU; +HYDR-3910; +LIDO5DIS41; +LOSA100T50 PO; +MELOPOW; +METO200T28; +ONE A DAY WOMANS PO; +OXYC-208 PO; +OXYC10TA12 PO; +SOMA350T PO; +TERA5CAP3; +TPS CREAM TOP; +TRAM50TA2; +TRAM50TA2 OR; +TRAM50TA2 PO; -TRIAMCINOLONE ACETONIDE SUSP 40 MG/ML VIAL (J3301) As Ordered; +UNIS25TA3 PO; +UNISOM; +VICO5TAB; +VICO5TAB OR; +VICO5TAB PO; +VITMTA PO; +multivitamin OR; +unisom OR; +zipsor
[2018-09-10] MEDS ORDERED: TEKT300T PO (08:22)
[2018-09-10] MEDS ORDERED: TIZA2TA PO (08:22)
[2018-09-10] MEDS ORDERED: ACETAMINOPHEN 325 MG TAB PO ONE (09:00)
[2018-09-10 09:06] LABS: HEMATOCRIT 40.7 % (36.0-47.0); HEMOGLOBIN 12.3 g/dl (12.0-15.5); MEAN CORPUSCULAR HEMOGLOBIN 27.3 pg (27.0-33.0); MEAN CORPUSCULAR HGB CONC 30.2 g/dl (32.0-36.5); MEAN CORPUSCULAR VOLUME 90.2 fl (80.0-96.0); PLATELET COUNT, AUTOMATED 244 10^3/uL (150-450); RED BLOOD COUNT 4.51 10^6/uL (4.00-5.40)
[2018-09-10 09:36] LABS: BLOOD UREA NITROGEN 12 MG/DL (7-18); CARBON DIOXIDE LEVEL 26 MEQ/L (21-32); CHLORIDE LEVEL 105 MEQ/L (98-107); CREATININE FOR GFR 0.67 MG/DL (0.55-1.30); GLOMERULAR FILTRATION RATE > 60.0 (>58); GLUCOSE, FASTING 91 MG/DL (70-100); POTASSIUM SERUM 4.1 MEQ/L (3.5-5.1); SODIUM LEVEL 141 MEQ/L (136-145)
[2018-09-10] MEDS ORDERED: METO1TAB33 PO (11:06)
[2018-09-10 11:36] VITALS: BP 175/85
--- NOTE | 2018-09-10 14:49 | ECGEPIP ---
Stationary ECG Study [facility] - ED Test Date: 2018-09-10 Pat Name: RITU TURCIOS Department: Room: - Gender: F Electrical Assembly Supervisor: TC : 1970 Requested By: Rachael Tran Order Number: [id number] Reading MD: Rachael Tran Measurements Intervals Alva Rate: 74 P: 20 CA: 138 QRS: 61 QRSD: 81 T: 47 QT: 356 QTc: 397 Interpretive Statements SINUS RHYTHM SIMILAR 11/23/17 Electronically Signed On 09-10-2018 14:49:10 EST by Rachael Tran
== END 2018-09-10 11:37 | disposition home or self-care (01) ==
LOC: M ED 08:13
DX: I10 Essential (primary) hypertension (principal)

== ENCOUNTER → 2018-12-11 | Outpatient (CLI) | payer OTHER ==
[~2018-12-11] MED LIST changes: -/MOXI40TA OR; +AVEL1TAB2 OR; +BUPIVACAINE HCL 0.25% 30 ML VIAL As Ordered ONE; +ISOVUE-M 300 61% 15ML VIAL (Q9967) As Ordered ONE; +LIDOCAINE 1% SDV INJ 30 ML VIAL As Ordered ONE; +METO1TAB33 PO; +TEKT300T PO; +TIZA2TA PO
--- NOTE | 2018-12-11 17:13 | REP ---
Partial lumbar spine series: Single view. History: Facet block for pain. 25 seconds of fluoroscopy time is reported. Findings: A single last image hold fluoroscopically obtained spot radiograph of the lumbar spine documents needle position and contrast injection associated with lumbar spine injection procedure. Electronically Signed by J Carlos Rucker MD 12/11/2018 05:23 P
--- NOTE | 2018-12-24 00:28 | ECWPNPC ---
PATIENT NAME: RITU TURCIOS : 1970 GENDER: FEMALE VISIT DATE: 12/11/2018 DISCHARGE DATE: 12/11/18 1541 VISIT LOCKED DATE TIME: PHYSICIAN: LORENE KOHLI MD RESOURCE: LORENE KOHLI MD REASON FOR APPOINTMENT 1. DIAGNOSTIC RIGHT LUMBAR FACET HISTORY OF PRESENT ILLNESS HISTORY OF PRESENT ILLNESS: PAIN THE PATIENT DESCRIBES THE PAIN... FALL RISK SCREENING: SCREENING :NO FALLS REPORTED IN THE LAST YEAR CURRENT MEDICATIONS TAKING METOPROLOL SUCCINATE ER 200 MG TABLET EXTENDED RELEASE 24 HOUR 1 TABLET ORALLY ONCE A DAY, NOTES: 12/11 6AM TAKING MOBIC 15 MG TABLET 1 TABLET ORALLY ONCE A DAY, NOTES: 12/11 6AM TAKING SPIRONOLACTONE 25 MG TABLET 1 TABLET ORALLY TWICE A DAY, NOTES: 12/11 6AM TAKING HYDRALAZINE HCL 25 MG TABLET 4 TABLET WITH FOOD ORALLY THREE TIMES A DAY, NOTES: 12/11 6AM TAKING TRAMADOL HCL 50 MG TABLET 1 TABLET NEEDED ORALLY EVERY 6 HRS PRN PAIN MDD=4, NOTES: 2 DAYS AGO TAKING TIZANIDINE HCL 2 MG TABLET 1 TABLET ORALLY THREE TIMES A DAY FOR MUSCLE SPASMS, NOTES: 3 DAYS NOT-TAKING LOSARTAN POTASSIUM 100 MG TABLET 1 TABLET ORALLY ONCE A DAY NOT-TAKING PYRIDIUM 200 MG TABLET 1 TABLET AFTER MEALS ORALLY THREE TIMES A DAY NOT-TAKING CLONIDINE HCL 0.2 MG TABLET 1 TABLET ORALLY TID NOT-TAKING GABAPENTIN 100 MG CAPSULE 1 CAPSULE ORALLY FOR PAIN THREE TIMES A DAY NOT-TAKING NORCO 10-325 MG TABLET 1 TABLET NEEDED ORALLY EVERY 6 HRS PRN SEVERE PAIN MDD=2 NOT-TAKING CARISOPRODOL 350 MG TABLET 1 TABLET NEEDED ORALLY DAILY PRN SPASM MDD=1 NOT-TAKING VESICARE 10 MG TABLET 1 TABLET ORALLY ONCE A DAY NOT-TAKING PREDNISONE 10 MG TABLET 1 TABLET ORALLY TAKE 4 TAB X 3 DAY, 3 TAB X 3 DAY, 2 TABX 3 DAY 1 TAB X 3 DAYS MEDICATION LIST REVIEWED AND RECONCILED WITH THE PATIENT PAST MEDICAL HISTORY HEMATURIA KIDNEY STONES CHRONIC BACK PAIN - WITH DORSAL STIMULATOR 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 SOCIAL HISTORY GENERAL: TOBACCO USE ARE YOU A: NONSMOKER . LATEX QUESTIONNAIRE LATEX ALLERGY : HAVE YOU EVER DEVELOPED ANY TYPE OF REACTION AFTER HANDLING LATEX PRODUCTS SUCH RUBBER GLOVES, CONDOMS, DIAPHRAGMS, BALLOONS, SOCKS, OR UNDERWEAR?NO LATEX ALLERGY : HAVE YOU EVER DEVELOPED ANY TYPE OF REACTION DURING OR AFTER DENTAL APPOINTMENT, VAGINAL/RECTAL EXAMINATION, SURGICAL PROCEDURE, OR ANY OTHER EXPOSURE?NO LATEX RISK : HAVE YOU EVER HAD ANY DIFFICULTY BREATHING OR HIVES AFTER EATING OR HANDLING ANY FRUITS, OR VEGETABLES; SUCH KIWI, BANANAS, STONE FRUITS, OR CHESTNUTSNO LATEX RISK : DO YOU HAVE A PREVIOUS PERSONAL HISTORY OF MORE THAN NINE SURGERIES, SPINA BIFIDA, OR REPEATED CATHERTIZATIONS? 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 PATIENT PAIN DIARY TODAY'S VISITNOTES FROM 0-10, WHAT LEVEL IS YOUR PAIN TODAY?7 PAIN CLINIC PFS, CLERGY, PUBLIC HEALTH REFERRALS PFS REFERRAL NEEDED?NO CLERGY REFERRAL NEEDED?NO PUBLIC HEALTH REFERRAL NEEDED?NO WAS THE PROVIDER NOTIFIED OF ANY PERTINENT INFO?YES HAS THE PATIENT BEEN EDUCATED REGARDING HIS/HER PLAN OF CARE?YES HAS THE PATIENT BEEN EDUCATED REGARDING PAIN, THE RISK FOR PAIN, THE IMPORTANCE OF EFFECTIVE PAIN MANAGEMENT, AND THE PAIN ASSESSMENT PROCESS?YES ADVANCE DIRECTIVE ADVANCE DIRECTIVE DISCUSSED WITH PATIENT:YES DECLINED INFORMATION OR ASSISTANCE AT THIS TIME REVIEWED 04/03/18 1430 LAS. HOSPITALIZATION/MAJOR DIAGNOSTIC PROCEDURE NO HOSPITALIZATION HISTORY. REVIEW OF SYSTEMS REVIEWED BY: PROVIDER: . CONSTITUTIONAL: ANY CHANGE IN YOUR MEDICAL CONDITION? NO . CHILLS NO . FEVER NO . INFECTION: DO YOU HAVE NEW INFECTIONS? NO . DO YOU HAVE HISTORY OF MRSA? NO . MUSCULOSKELETAL: ANY NEW PATTERNS OF PAIN OR NUMBNESS? NO . GASTROENTEROLOGY: ANY NEW CHANGE IN BOWEL CONTROL? NO . GENITOURINARY: ANY NEW CHANGE IN BLADDER CONTROL? NO . IS THERE A CHANCE YOU COULD BE ? NO . HEMATOLOGY/LYMPH: DO YOU TAKE ANY BLOOD THINNERS? (FOR EXAMPLE- COUMADIN, PLAVIX, AGGRENOX, PLATEL, PRADAXA, OR XARELTO) NO . WHEN WAS YOUR LAST DOSE? DATE: TIME: . NEUROLOGY: HAVE YOU FALLEN IN THE PAST 12 MONTHS? NO . ANY NEW EXTREMITY NUMBNESS OR WEAKNESS? NO . CARDIOLOGY: DO YOU HAVE A PACEMAKER OR DEFIBRILLATOR? NO . RESPIRATORY: HAVE YOU BEEN SICK IN THE PAST WEEK? NO . FEVER NO . FLU LIKE SYMPTOMS? NO . COUGH NO . INTEGUMENTARY: DO YOU HAVE ANY RASHES OR OPEN SORES? NO . ALLERGIC/IMMUNO: ARE YOU ALLERGIC TO IV DYE? NO . ANY NEW ALLERGIES? NO . PSYCHIATRIC: DO YOU HAVE THOUGHTS OF HURTING YOURSELF OR SOMEONE ELSE? NO . ARE YOU ABUSED, NEGLECTED, OR IN AN UNSAFE ENVIRONMENT? NO . ENDOCRINOLOGY: ARE YOU DIABETIC? NO . OTHER: DO YOU NEED ANY PRESCRIPTIONS? NO . IF YES, PLEASE LIST: ____ . ANY NEW PROBLEMS WITH YOUR MEDICATIONS? NO . WHEN DID YOU LAST EAT? 12/10 7PM . WHEN DID YOU LAST DRINK? 12-11 6:30AM . WHAT DID YOU LAST DRINK? WATER . NAME OF PERSON DRIVING YOU HOME? ELI . DO YOU HAVE ANY OTHER QUESTIONS OR CONCERNS NO . VITAL SIGNS WT 149 LBS, HT 5'1", BMI 28.15 INDEX, BP 155/75 MM HG, HR 86 /MIN, RR 16 /MIN, TEMP 98.6 F, OXYGEN SAT % 100%, SAFE IN ENV? (Y/N) Y, NA INITIALS AW 1355, REVIEWED BY: ANDRESSA. ASSESSMENTS SPONDYLOSIS OF LUMBAR REGION WITHOUT MYELOPATHY OR RADICULOPATHY - M47.816 (PRIMARY) PROCEDURES PN LUMBAR FACET BLOCK DIAGNOSTIC PRE PROCEDURE DIAGNOSIS LUMBAR SPONDYLOSIS, LUMBOSACRAL SPONDYLOSIS POST PROCEDURE DIAGNOSIS LUMBAR SPONDYLOSIS, LUMBOSACRAL SPONDYLOSIS PROCEDURE RIGHT L3-L4 AND RIGHT L4-L5 FACET BLOCK DIAGNOSTIC NUMBER [address] LORENE KOHLI COREMAKER PIPE NONE ANESTHESIA LOCAL PRE PROCEDURE NOTE THE PATIENT WITH HISTORY OF CHRONIC LOW BACK PAIN. I EVALUATED THE PATIENT AND REVIEWED THE CHART. I WENT OVER THE RISKS, ALTERNATIVES, AND BENEFITS ASSOCIATED WITH THIS PROCEDURE. THE PATIENT WOULD LIKE TO PROCEED AND GAVE CONSENT TO PERFORM THE PROCEDURE. AGREED WITH THE PATIENT WE ARE DOING THIS PROCEDURE TO DETERMINE IF THE PATIENT IS A CANDIDATE FOR A RADIOFREQUENCY ABLATION OF THE FACETS JOINTS. THE PATIENT DENIES UNEXPLAINABLE WEIGHT LOSS, FEVER, CHILLS, OR NEW CHANGES IN URINARY OR BOWEL CONTROL DESCRIPTION OF PROCEDURE THE PATIENT WAS BROUGHT TO THE PROCEDURE ROOM AND PLACED IN THE PRONE POSITION. THE LUMBOSACRAL AREA WAS CLEANED WITH CHLORAPREP SOLUTION AND DRAPED ASEPTICALLY. THE PROCEDURE WAS DONE UNDER STERILE CONDITIONS. I CHECKED LATERALITY AND THE LEVEL WHERE THE PROCEDURE WAS GOING TO BE PERFORMED WITH THE PATIENT AND THE SUPPORTING STAFF AT THE MOMENT OF THE TIME OUT IN THE PROCEDURE ROOM. UNDER FLUOROSCOPIC GUIDANCE, TARGETS WERE SELECTED AT THE INTERSECTION OF THE RIGHT TRANSVERSE PROCESS OF L3, L4, AND L5 WITH ITS RESPECTIVE SUPERIOR ARTICULAR PROCESS. LIDOCAINE WAS USED TO NUMB THE SKIN AND THE SUBCUTANEOUS TISSUE BELOW IT. SPINAL NEEDLE, 22-GAUGE WAS ADVANCED UNDER FLUOROSCOPIC GUIDANCE AND FOLLOWING PATIENT FEEDBACK UNTIL THE TARGETS WERE REACHED. POSITION OF THE NEEDLES WAS VERIFIED WITH AP AND LATERAL VIEWS. AFTER PROPER POSITION OF THE NEEDLES WAS ACHIEVED, ISOVUE-M DYE 30% 0.1 ML WAS INJECTED AT EACH SITE SHOWING ADEQUATE SPREAD OF THE DYE. THEN A SOLUTION OF 0.4 ML OF BUPIVACAINE 0.25% WAS INJECTED AT EACH SITE. THERE WAS NO EVIDENCE OF BLOOD, PARESTHESIA OR CEREBROSPINAL FLUID DURING THE PROCEDURE. THE PATIENT WAS SENT TO THE RECOVERY ROOM. THE PATIENT WAS MOVING THE EXTREMITIES AND DOING WELL. THERE WAS NO COMPLICATION DURING THE PROCEDURE. FLUOROSCOPY TIME WAS 25 SECONDS POST PROCEDURE NOTE THE PATIENT WILL DOCUMENT HIS PAIN LEVEL AND RESPONSE TO THIS PROCEDURE EVERY 30 MINUTES. THE PATIENT WILL BE SEEN IN A FOLLOW UP IN THE NEXT FEW WEEKS. FURTHER DETERMINATION FOR HIS CASE WILL BE DONE AT THE NEXT VISIT. INSTRUCTIONS WERE GIVEN, QUESTIONS WERE ANSWERED, AND THE PATIENT EXPRESSED UNDERSTANDING AND AGREED WITH THE PLAN. I, PATRICIO LOPEZ, DOCUMENTED THE ABOVE INFORMATION ACTING A SCRIBE FOR DR. KOHLI. I HAVE REVIEWED THE ABOVE DOCUMENT, WRITTEN BY PATRICIO HALLIBDebra AND I VERIFY THAT IT IS ACCURATE. DIAGNOSTIC IMAGING [facility] FACET BLOCK (PAIN)[id number] PROCEDURE CODES 6045F RADXPS IN END [id number] PXD [id number] INJ PARAVERT F JNT L/S 1 LEV, MODIFIERS: RT [id number] INJ PARAVERT F JNT L/S 2 LEV, MODIFIERS: RT DISPOSITION & COMMUNICATION FOLLOW UP 3 WEEKS ELECTRONICALLY SIGNED BY LORENE KOHLI MD, MD ON 12/23/2018 AT 08:10 PM EDT DISCLAIMER : THIS IS A VISIT SUMMARY EXTRACTED FROM THE [email or web address] CHART. IT IS NOT A COPY OF THE [email or web address] PROGRESS NOTE. CHELSEA
== END ==
LOC: M PAIN 14:00
PROVIDERS: ATTEND Anesthesiology
DX: M47.816 Spondylosis without myelopathy or radiculopathy, lumbar region (principal); R31.9 Hematuria, unspecified; N28.9 Disorder of kidney and ureter, unspecified; Z79.891 Long term (current) use of opiate analgesic; Z87.442 Personal history of urinary calculi; Z79.899 Other long term (current) drug therapy; Z88.2 Allergy status to sulfonamides; Z88.1 Allergy status to other antibiotic agents; Z88.5 Allergy status to narcotic agent
CPT/HCPCS: 64493; 64494; Q9967

== ENCOUNTER → 2018-12-18 | Outpatient (CLI) | payer OTHER ==
[~2018-12-18] MED LIST changes: -BUPIVACAINE HCL 0.25% 30 ML VIAL As Ordered ONE; -ISOVUE-M 300 61% 15ML VIAL (Q9967) As Ordered ONE; -LIDOCAINE 1% SDV INJ 30 ML VIAL As Ordered ONE
--- NOTE | 2019-01-01 00:39 | ECWPNPC ---
PATIENT NAME: RITU TURCIOS : 1970 GENDER: FEMALE VISIT DATE: 12/18/2018 DISCHARGE DATE: 12/18/18 1558 VISIT LOCKED DATE TIME: PHYSICIAN: LORENE KOHLI MD RESOURCE: LORENE KOHLI MD REASON FOR APPOINTMENT 1. POST PROC/R LBP HISTORY OF PRESENT ILLNESS HISTORY OF PRESENT ILLNESS: PAIN THE PATIENT DESCRIBES THE PAIN... 48 YEAR OLD FEMALE PATIENT WITH A HISTORY OF CHRONIC LOW BACK PAIN. THE PATIENT DESCRIBES THE PAIN SHARP, SORE, TENDER WITH A PAIN SCORE OF 7-9/10 DEPENDING ON PHYSICAL ACTIVITY. THE PATIENT SAYS THE PAIN IS LOCATED MAINLY ON THE RIGHT SIDE OF HER LOW BACK. THE PATIENT SAYS SHE HAS DIFFICULTY PERFORMING DAILY ACTIVITIES DUE TO THE PAIN. THE PATIENT HAD A RIGHT LUMBAR DIAGNOSTIC FACET BLOCK DONE ON 12/11/2018. THE PATIENT SAID SHE EXPERIENCED SIGNIFICANT PAIN RELIEF WHERE THE PAIN WAS RANGING AT A 10/10 PAIN SCORE AND WENT DOWN TO A 0 FOR SEVERAL DAYS AFTER THE FACET BLOCK. HOWEVER, SHE SAYS THE PAIN HAS SINCE RETURNED. PATIENT DENIES UNEXPLAINABLE WEIGHT LOSS, FEVER, CHILLS, NEW CHANGES ON HER URINARY OR BOWEL CONTROL. FALL RISK SCREENING: SCREENING :NO FALLS REPORTED IN THE LAST YEAR CURRENT MEDICATIONS TAKING METOPROLOL SUCCINATE ER 200 MG TABLET EXTENDED RELEASE 24 HOUR 1 TABLET ORALLY ONCE A DAY TAKING MOBIC 15 MG TABLET 1 TABLET ORALLY ONCE A DAY TAKING SPIRONOLACTONE 25 MG TABLET 1 TABLET ORALLY TWICE A DAY TAKING HYDRALAZINE HCL 25 MG TABLET 4 TABLET WITH FOOD ORALLY THREE TIMES A DAY TAKING TRAMADOL HCL 50 MG TABLET 1 TABLET NEEDED ORALLY EVERY 6 HRS PRN PAIN MDD=4 TAKING TIZANIDINE HCL 2 MG TABLET 1 TABLET ORALLY THREE TIMES A DAY FOR MUSCLE SPASMS NOT-TAKING LOSARTAN POTASSIUM 100 MG TABLET 1 TABLET ORALLY ONCE A DAY NOT-TAKING PYRIDIUM 200 MG TABLET 1 TABLET AFTER MEALS ORALLY THREE TIMES A DAY NOT-TAKING CLONIDINE HCL 0.2 MG TABLET 1 TABLET ORALLY TID NOT-TAKING GABAPENTIN 100 MG CAPSULE 1 CAPSULE ORALLY FOR PAIN THREE TIMES A DAY NOT-TAKING NORCO 10-325 MG TABLET 1 TABLET NEEDED ORALLY EVERY 6 HRS PRN SEVERE PAIN MDD=2 NOT-TAKING CARISOPRODOL 350 MG TABLET 1 TABLET NEEDED ORALLY DAILY PRN SPASM MDD=1 NOT-TAKING VESICARE 10 MG TABLET 1 TABLET ORALLY ONCE A DAY NOT-TAKING PREDNISONE 10 MG TABLET 1 TABLET ORALLY TAKE 4 TAB X 3 DAY, 3 TAB X 3 DAY, 2 TABX 3 DAY 1 TAB X 3 DAYS MEDICATION LIST REVIEWED AND RECONCILED WITH THE PATIENT PAST MEDICAL HISTORY HEMATURIA KIDNEY STONES CHRONIC BACK PAIN - WITH DORSAL STIMULATOR 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 SOCIAL HISTORY GENERAL: TOBACCO USE ARE YOU A: NONSMOKER . LATEX QUESTIONNAIRE LATEX ALLERGY : HAVE YOU EVER DEVELOPED ANY TYPE OF REACTION AFTER HANDLING LATEX PRODUCTS SUCH RUBBER GLOVES, CONDOMS, DIAPHRAGMS, BALLOONS, SOCKS, OR UNDERWEAR?NO LATEX ALLERGY : HAVE YOU EVER DEVELOPED ANY TYPE OF REACTION DURING OR AFTER DENTAL APPOINTMENT, VAGINAL/RECTAL EXAMINATION, SURGICAL PROCEDURE, OR ANY OTHER EXPOSURE?NO LATEX RISK : HAVE YOU EVER HAD ANY DIFFICULTY BREATHING OR HIVES AFTER EATING OR HANDLING ANY FRUITS, OR VEGETABLES; SUCH KIWI, BANANAS, STONE FRUITS, OR CHESTNUTSNO LATEX RISK : DO YOU HAVE A PREVIOUS PERSONAL HISTORY OF MORE THAN NINE SURGERIES, SPINA BIFIDA, OR REPEATED CATHERTIZATIONS? NO LATEX RISK : ARE YOU FREQUENTLY EXPOSED TO LATEX PRODUCTS IN YOUR OCCUPATION?NO DATE ASKED : 12/18/2018 [employer]UR[employer] [id number] [employer] LANGUAGE LANGUAGES SPOKEN:GIBRALTARIAN LEARNING BARRIERS / SPECIAL NEEDS CHANGE FROM LAST VISIT?NO BARRIERS TO LEARNING?NO HEARING IMPAIRED?NO VISION IMPAIRED?YES :CORRECTIVE LENSES COGNITIVELY IMPAIRED?NO READINESS TO LEARN?YES LEARNING PREFERENCES?NO LEARNING CAPABILITIES PRESENT?YES EMOTIONAL BARRIERS?NO SPECIAL DEVICES?NO SUPERVISOR BLAST FURNACE NEEDED?NO NEW PATIENT PAIN DIARY TODAY'S VISITNOTES FROM 0-10, WHAT LEVEL IS YOUR PAIN TODAY?7 PAIN CLINIC PFS, CLERGY, PUBLIC HEALTH REFERRALS PFS REFERRAL NEEDED?NO CLERGY REFERRAL NEEDED?NO PUBLIC HEALTH REFERRAL NEEDED?NO WAS THE PROVIDER NOTIFIED OF ANY PERTINENT INFO?YES HAS THE PATIENT BEEN EDUCATED REGARDING HIS/HER PLAN OF CARE?YES HAS THE PATIENT BEEN EDUCATED REGARDING PAIN, THE RISK FOR PAIN, THE IMPORTANCE OF EFFECTIVE PAIN MANAGEMENT, AND THE PAIN ASSESSMENT PROCESS?YES ADVANCE DIRECTIVE ADVANCE DIRECTIVE DISCUSSED WITH PATIENT:YES DECLINED INFORMATION OR ASSISTANCE AT THIS TIME REVIEWED 04/03/18 1430 LAS. HOSPITALIZATION/MAJOR DIAGNOSTIC PROCEDURE NO HOSPITALIZATION HISTORY. REVIEW OF SYSTEMS REVIEWED BY: PROVIDER: LORENE KOHLI MD . CONSTITUTIONAL: ANY CHANGE IN YOUR MEDICAL CONDITION? NO . CHILLS NO . FEVER NO . INFECTION: DO YOU HAVE NEW INFECTIONS? NO . DO YOU HAVE HISTORY OF MRSA? NO . MUSCULOSKELETAL: ANY NEW PATTERNS OF PAIN OR NUMBNESS? NO . GASTROENTEROLOGY: ANY NEW CHANGE IN BOWEL CONTROL? NO . GENITOURINARY: ANY NEW CHANGE IN BLADDER CONTROL? NO . IS THERE A CHANCE YOU COULD BE ? NO . HEMATOLOGY/LYMPH: DO YOU TAKE ANY BLOOD THINNERS? (FOR EXAMPLE- COUMADIN, PLAVIX, AGGRENOX, PLATEL, PRADAXA, OR XARELTO) NO . WHEN WAS YOUR LAST DOSE? DATE: TIME: . NEUROLOGY: HAVE YOU FALLEN IN THE PAST 12 MONTHS? NO . ANY NEW EXTREMITY NUMBNESS OR WEAKNESS? NO . CARDIOLOGY: DO YOU HAVE A PACEMAKER OR DEFIBRILLATOR? NO . RESPIRATORY: HAVE YOU BEEN SICK IN THE PAST WEEK? NO . FEVER NO . FLU LIKE SYMPTOMS? NO . COUGH NO . INTEGUMENTARY: DO YOU HAVE ANY RASHES OR OPEN SORES? NO . ALLERGIC/IMMUNO: ARE YOU ALLERGIC TO IV DYE? NO . ANY NEW ALLERGIES? NO . PSYCHIATRIC: DO YOU HAVE THOUGHTS OF HURTING YOURSELF OR SOMEONE ELSE? NO . ARE YOU ABUSED, NEGLECTED, OR IN AN UNSAFE ENVIRONMENT? NO . ENDOCRINOLOGY: ARE YOU DIABETIC? NO . OTHER: DO YOU NEED ANY PRESCRIPTIONS? NO . IF YES, PLEASE LIST: ____ . ANY NEW PROBLEMS WITH YOUR MEDICATIONS? NO . WHEN DID YOU LAST EAT? ____ . WHEN DID YOU LAST DRINK? ____ . WHAT DID YOU LAST DRINK? ____ . NAME OF PERSON DRIVING YOU HOME? ____ . DO YOU HAVE ANY OTHER QUESTIONS OR CONCERNS GOOD RELIEF FROM DIAGNOSTIC FACET, READY TO MOVE ON TO NEXT DIAGNOSTIC FACET. PT WOULD ALSO LIKE MEDICATIONS TO HELP WITH PAIN MANAGEMENT UNTIL SHE RECIEVES RADIO FREQUENCY . VITAL SIGNS WT 148.2 LBS, HT 5'1", BMI 28.00 INDEX, BP 161/88 MM HG, HR 87 /MIN, RR 16 /MIN, TEMP 96.7 F, OXYGEN SAT % 99%, SAFE IN ENV? (Y/N) Y, NA INITIALS SC 14:42, REVIEWED BY: ANDRESSA. EXAMINATION GENERAL EXAMINATION: PATIENT IS ALERT O X 3 AND COOPERATIVE. TENDERNESS IN RIGHT LOW BACK AREA. PAIN INCREASES OVER THE FACET JOINTS AT L3-L4 AND L4-L5 WITH EXTENSION AND LATERAL ROTATION OF THE BACK. MRI OF THE LUMBAR SPINE DONE ON 06/20/2018 SHOWS FACET ARTHROPATHY CHANGES AT MULTIPLE LEVELS. ASSESSMENTS SPONDYLOSIS OF LUMBAR REGION WITHOUT MYELOPATHY OR RADICULOPATHY - M47.816 (PRIMARY) TREATMENT SPONDYLOSIS OF LUMBAR REGION WITHOUT MYELOPATHY OR RADICULOPATHY CLINICAL NOTES: WE DISCUSSED SEVERAL ISSUES WITH MS. TURCIOS'S PAIN MANAGEMENT CASE. DUE TO THE LUMBAR SPONDYLOSIS, I WOULD LIKE TO MOVE FORWARD WITH A SECOND DIAGNOSTIC LUMBAR FACET BLOCK TO CONSIDER RADIOFREQUENCY. WE DISCUSSED THE BENEFITS, RISKS, AND ALTERNATIVES OF THE PROCEDURE AND THE PATIENT WOULD LIKE TO PROCEED. I WILL START THE PATIENT ON HYDROCODONE TO BE USED NEED FOR PAIN RELIEF. I HAD A LONG DISCUSSION WITH THE PATIENT ABOUT MEDICATION MANAGEMENT AND THE RISKS AND NEED FOR CARE WITH OPIOID USE. I WILL PERFORM A URINE TOXICOLOGY TODAY. THE PATIENT WILL FOLLOW UP IN SEVERAL WEEKS AFTER THE PROCEDURE. INSTRUCTIONS WERE GIVEN, QUESTIONS WERE ANSWERED, PATIENT REPORTS UNDERSTANDING AND AGREES WITH THE PLAN. I, DION PALMA, DOCUMENTED THE ABOVE INFORMATION ACTING A SCRIBE FOR DR. KOHLI. I HAVE REVIEWED THE ABOVE DOCUMENT, WRITTEN BY DION PALMA SCRIBDebra AND I VERIFY THAT IT IS ACCURATE. . OTHERS START HYDROCODONE-ACETAMINOPHEN TABLET, 5-300 MG, 1 TABLET NEEDED, ORALLY FOR PAIN, EVERY 12 HRS MDD2, 30 DAYS, 60, REFILLS 0 PROCEDURE CODES FA211 ESTABILISHED PATIENT [facility] FACILITY CHARGE G8427 CURRENT MEDS W/DOSAGES DOCUMENTED G8730 PAIN ASSESS POS TOOL F/U PLAN DOC DISPOSITION & COMMUNICATION FOLLOW UP 3 WEEKS ELECTRONICALLY SIGNED BY LORENE KOHLI MD, MD ON 12/31/2018 AT 07:04 PM EDT DISCLAIMER : THIS IS A VISIT SUMMARY EXTRACTED FROM THE [employer] CHART. IT IS NOT A COPY OF THE [employer] PROGRESS NOTE. MTDD
== END ==
LOC: M PAIN 14:30
PROVIDERS: ATTEND Anesthesiology
DX: M47.816 Spondylosis without myelopathy or radiculopathy, lumbar region (principal); G89.29 Other chronic pain; N18.9 Chronic kidney disease, unspecified; Z79.899 Other long term (current) drug therapy; Z88.1 Allergy status to other antibiotic agents; Z88.5 Allergy status to narcotic agent; Z88.8 Allergy status to other drugs, medicaments and biological substances

== ENCOUNTER → 2019-01-30 | Outpatient (CLI) | payer OTHER ==
--- NOTE | 2019-02-02 01:15 | ECWPNPC ---
PATIENT NAME: RITU TURCIOS : 1970 GENDER: FEMALE VISIT DATE: 01/30/2019 DISCHARGE DATE: 01/30/19 1531 VISIT LOCKED DATE TIME: PHYSICIAN: LORENE KOHLI MD RESOURCE: LORENE KOHLI MD REASON FOR APPOINTMENT 1. POST PROCEDURE HISTORY OF PRESENT ILLNESS HISTORY OF PRESENT ILLNESS: PAIN THE PATIENT DESCRIBES THE PAIN... 48 YEAR OLD FEMALE PATIENT WITH A HISTORY OF CHRONIC LOW BACK PAIN. THE PATIENT DESCRIBES THE PAIN SHARP AND CONTINUOUS WITH A PAIN SCORE OF 7-9/10 DEPENDING ON PHYSICAL ACTIVITY. THE PATIENT WAS HERE FOR A SECOND DIAGNOSTIC LUMBAR FACET BLOCK ON 01/16/2019 AND REPORTS HAVING MORE THAN 80% PAIN RELIEF FOR SEVERAL HOURS. THE PATIENT IS CURRENTLY USING OXYCODONE AND TRAMADOL TO AID IN PAIN RELIEF. PATIENT DENIES UNEXPLAINABLE WEIGHT LOSS, FEVER, CHILLS, NEW CHANGES ON HER URINARY OR BOWEL CONTROL. FALL RISK SCREENING: SCREENING :NO FALLS REPORTED IN THE LAST YEAR CURRENT MEDICATIONS TAKING METOPROLOL SUCCINATE ER 200 MG TABLET EXTENDED RELEASE 24 HOUR 1 TABLET ORALLY ONCE A DAY, NOTES: 01/15/19 TAKING MOBIC 15 MG TABLET 1 TABLET ORALLY ONCE A DAY, NOTES: NONE LATELY TAKING SPIRONOLACTONE 25 MG TABLET 1 TABLET ORALLY TWICE A DAY, NOTES: NONE LATELY TAKING HYDRALAZINE HCL 25 MG TABLET 4 TABLET WITH FOOD ORALLY THREE TIMES A DAY, NOTES: NONE LATELY TAKING TRAMADOL HCL 50 MG TABLET 1 TABLET NEEDED ORALLY EVERY 6 HRS PRN PAIN MDD=4, NOTES: 01/15/19 TAKING OXYCODONE HCL 5 MG TABLET 1 TABLET NEEDED ORALLY FOR PAIN EVERY 12 HRS MDD2, NOTES: NONE LATELY NOT-TAKING TIZANIDINE HCL 2 MG TABLET 1 TABLET ORALLY THREE TIMES A DAY FOR MUSCLE SPASMS, NOTES: NONE LATELY NOT-TAKING HYDROCODONE-ACETAMINOPHEN 5-300 MG TABLET 1 TABLET NEEDED ORALLY FOR PAIN EVERY 12 HRS MDD2, NOTES: NONE LATELY NOT-TAKING LOSARTAN POTASSIUM 100 MG TABLET 1 TABLET ORALLY ONCE A DAY NOT-TAKING PYRIDIUM 200 MG TABLET 1 TABLET AFTER MEALS ORALLY THREE TIMES A DAY NOT-TAKING CLONIDINE HCL 0.2 MG TABLET 1 TABLET ORALLY TID NOT-TAKING GABAPENTIN 100 MG CAPSULE 1 CAPSULE ORALLY FOR PAIN THREE TIMES A DAY NOT-TAKING NORCO 10-325 MG TABLET 1 TABLET NEEDED ORALLY EVERY 6 HRS PRN SEVERE PAIN MDD=2 NOT-TAKING CARISOPRODOL 350 MG TABLET 1 TABLET NEEDED ORALLY DAILY PRN SPASM MDD=1 NOT-TAKING VESICARE 10 MG TABLET 1 TABLET ORALLY ONCE A DAY NOT-TAKING PREDNISONE 10 MG TABLET 1 TABLET ORALLY TAKE 4 TAB X 3 DAY, 3 TAB X 3 DAY, 2 TABX 3 DAY 1 TAB X 3 DAYS MEDICATION LIST REVIEWED AND RECONCILED WITH THE PATIENT PAST MEDICAL HISTORY HEMATURIA KIDNEY STONES CHRONIC BACK PAIN - WITH DORSAL STIMULATOR 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 SOCIAL HISTORY GENERAL: TOBACCO USE ARE YOU A: NONSMOKER. PAIN CLINIC PFS, CLERGY, PUBLIC HEALTH REFERRALS PFS REFERRAL NEEDED?NO CLERGY REFERRAL NEEDED?NO PUBLIC HEALTH REFERRAL NEEDED?NO WAS THE PROVIDER NOTIFIED OF ANY PERTINENT INFO?YES HAS THE PATIENT BEEN EDUCATED REGARDING HIS/HER PLAN OF CARE?YES HAS THE PATIENT BEEN EDUCATED REGARDING PAIN, THE RISK FOR PAIN, THE IMPORTANCE OF EFFECTIVE PAIN MANAGEMENT, AND THE PAIN ASSESSMENT PROCESS?YES LATEX QUESTIONNAIRE LATEX ALLERGY : HAVE YOU EVER DEVELOPED ANY TYPE OF REACTION AFTER HANDLING LATEX PRODUCTS SUCH RUBBER GLOVES, CONDOMS, DIAPHRAGMS, BALLOONS, SOCKS, OR UNDERWEAR?NO LATEX ALLERGY : HAVE YOU EVER DEVELOPED ANY TYPE OF REACTION DURING OR AFTER DENTAL APPOINTMENT, VAGINAL/RECTAL EXAMINATION, SURGICAL PROCEDURE, OR ANY OTHER EXPOSURE?NO LATEX RISK : HAVE YOU EVER HAD ANY DIFFICULTY BREATHING OR HIVES AFTER EATING OR HANDLING ANY FRUITS, OR VEGETABLES; SUCH KIWI, BANANAS, STONE FRUITS, OR CHESTNUTSNO LATEX RISK : DO YOU HAVE A PREVIOUS PERSONAL HISTORY OF MORE THAN NINE SURGERIES, SPINA BIFIDA, OR REPEATED CATHERTIZATIONS? NO LATEX RISK : ARE YOU FREQUENTLY EXPOSED TO LATEX PRODUCTS IN YOUR OCCUPATION?NO DATE ASKED : 12/18/2018 ADVANCE DIRECTIVE ADVANCE DIRECTIVE DISCUSSED WITH PATIENT:YES DECLINED INFORMATION OR ASSISTANCE AT THIS TIME S[employer]IANIST [id number] RESTORATIONISM LANGUAGE LANGUAGES SPOKEN:LAO NEW PATIENT PAIN DIARY TODAY'S VISITNOTES FROM 0-10, WHAT LEVEL IS YOUR PAIN TODAY?7 LEARNING BARRIERS / SPECIAL NEEDS CHANGE FROM LAST VISIT?NO BARRIERS TO LEARNING?NO HEARING IMPAIRED?NO VISION IMPAIRED?YES :CORRECTIVE LENSES COGNITIVELY IMPAIRED?NO READINESS TO LEARN?YES LEARNING PREFERENCES?NO LEARNING CAPABILITIES PRESENT?YES EMOTIONAL BARRIERS?NO SPECIAL DEVICES?NO MAINFRAME PROGRAMMER ANALYST NEEDED?NO REVIEWED 04/03/18 LASREVIEWED 01/30/19 1444 LAS. HOSPITALIZATION/MAJOR DIAGNOSTIC PROCEDURE SURGERIES REVIEW OF SYSTEMS REVIEWED BY: PROVIDER: LORENE KOHLI MD . CONSTITUTIONAL: ANY CHANGE IN YOUR MEDICAL CONDITION? NO . CHILLS NO . FEVER NO . INFECTION: DO YOU HAVE NEW INFECTIONS? NO . DO YOU HAVE HISTORY OF MRSA? NO . MUSCULOSKELETAL: ANY NEW PATTERNS OF PAIN OR NUMBNESS? PT HAD DIAGNOSTIC FACET BLOCK #2 01/16, REPORTS 0 PAIN FOR 2 HOURS, WITH PAIN GRADUALLY RETURNING TO BASELINE BY 4 HOURS. . GASTROENTEROLOGY: ANY NEW CHANGE IN BOWEL CONTROL? NO . GENITOURINARY: ANY NEW CHANGE IN BLADDER CONTROL? NO . IS THERE A CHANCE YOU COULD BE ? NO . HEMATOLOGY/LYMPH: DO YOU TAKE ANY BLOOD THINNERS? (FOR EXAMPLE- COUMADIN, PLAVIX, AGGRENOX, PLATEL, PRADAXA, OR XARELTO) NO . WHEN WAS YOUR LAST DOSE? DATE: TIME: . NEUROLOGY: HAVE YOU FALLEN IN THE PAST 12 MONTHS? NO . ANY NEW EXTREMITY NUMBNESS OR WEAKNESS? NO . CARDIOLOGY: DO YOU HAVE A PACEMAKER OR DEFIBRILLATOR? NO . RESPIRATORY: HAVE YOU BEEN SICK IN THE PAST WEEK? NO . FEVER NO . FLU LIKE SYMPTOMS? NO . COUGH NO . INTEGUMENTARY: DO YOU HAVE ANY RASHES OR OPEN SORES? NO . ALLERGIC/IMMUNO: ARE YOU ALLERGIC TO IV DYE? NO . ANY NEW ALLERGIES? NO . PSYCHIATRIC: DO YOU HAVE THOUGHTS OF HURTING YOURSELF OR SOMEONE ELSE? NO . ARE YOU ABUSED, NEGLECTED, OR IN AN UNSAFE ENVIRONMENT? NO . ENDOCRINOLOGY: ARE YOU DIABETIC? NO . OTHER: DO YOU NEED ANY PRESCRIPTIONS? NO . IF YES, PLEASE LIST: ____ . ANY NEW PROBLEMS WITH YOUR MEDICATIONS? NO . WHEN DID YOU LAST EAT? ____ . WHEN DID YOU LAST DRINK? ____ . WHAT DID YOU LAST DRINK? ____ . NAME OF PERSON DRIVING YOU HOME? ____ . DO YOU HAVE ANY OTHER QUESTIONS OR CONCERNS NO . VITAL SIGNS WT 148.8 LBS, HT 5'1", BMI 28.11 INDEX, BP 168/78 MM HG, HR 95 /MIN, RR 16 /MIN, TEMP 98.9 F, OXYGEN SAT % 99, SAFE IN ENV? (Y/N) YES, NA INITIALS MP 1436, REVIEWED BY: MYRNA. EXAMINATION GENERAL EXAMINATION: PATIENT IS ALERT O X 3 AND COOPERATIVE. TENDERNESS IN THE RIGHT LOW BACK AREA. PAIN INCREASES OVER THE LUMBAR FACET JOINTS WITH EXTENSION AND LATERAL ROTATION OF THE BACK. MRI OF THE LUMBAR SPINE DONE ON 06/20/2018 SHOWS FACET ARTHROPATHY CHANGES AT MULTIPLE LEVELS AND POST LAMINECTOMY CHANGES. 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 TURCIOS'S PAIN MANAGEMENT CASE. DUE TO THE LUMBAR SPONDYLOSIS AND HAVING SIGNIFICANT PAIN RELIEF AFTER TWO DIAGNOSTIC LUMBAR FACET BLOCKS, I WOULD LIKE TO MOVE FORWARD WITH RIGHT L4-L5, L5-S1 RADIOFREQUENCY ABLATION. WE DISCUSSED THE BENEFITS, RISKS, AND ALTERNATIVES OF THE PROCEDURE AND THE PATIENT WOULD LIKE TO PROCEED. THE PATIENT WILL CONTINUE WITH THE SAME MEDICATION REGIMENT. ISTOP _#[id number] WAS REVIEWED. URINE TOXICOLOGY DONE ON 12/18/2018 SHOWS CONCURRENT RESULTS. THE PATIENT WILL FOLLOW UP A FEW WEEKS AFTER THE PROCEDURE. INSTRUCTIONS WERE GIVEN, QUESTIONS WERE ANSWERED, PATIENT REPORTS UNDERSTANDING AND AGREES WITH THE PLAN. I, PATRICIO LOPEZ, DOCUMENTED THE ABOVE INFORMATION ACTING A SCRIBE FOR DR. KOHLI. I HAVE REVIEWED THE ABOVE DOCUMENT, WRITTEN BY PATRICIO HALLIBDebra AND I VERIFY THAT IT IS ACCURATE. . OTHERS REFILL OXYCODONE HCL TABLET, 5 MG, 1 TABLET NEEDED, ORALLY FOR PAIN, EVERY 12 HRS MDD2, 30 DAYS, 55, REFILLS 0, NOTES: NONE LATELY PREVENTIVE MEDICINE PAIN CLINIC TEACHING: PROCEDURE TEACHING RADIO FREQUENCY PROCEDURE REVIEWED WITH PATIENT, PRE PROCEDURE INSTRUCTIONS GIVEN MYRNA. PROCEDURE CODES FA211 ESTABILISHED PATIENT [facility] FACILITY CHARGE G8427 CURRENT MEDS W/DOSAGES DOCUMENTED G8730 PAIN ASSESS POS TOOL F/U PLAN DOC DISPOSITION & COMMUNICATION FOLLOW UP REQUESTING RF ELECTRONICALLY SIGNED BY LORENE KOHLI MD, MD ON 02/01/2019 AT 05:18 PM EDT DISCLAIMER : THIS IS A VISIT SUMMARY EXTRACTED FROM THE [employer] CHART. IT IS NOT A COPY OF THE [employer] PROGRESS NOTE. MTDD
== END ==
LOC: M PAIN 14:45
PROVIDERS: ATTEND Anesthesiology
DX: M47.816 Spondylosis without myelopathy or radiculopathy, lumbar region (principal); M96.1 Postlaminectomy syndrome, not elsewhere classified; Z88.1 Allergy status to other antibiotic agents; Z88.5 Allergy status to narcotic agent; Z79.1 Long term (current) use of non-steroidal anti-inflammatories (NSAID); Z79.899 Other long term (current) drug therapy

== ENCOUNTER → 2019-03-20 | Outpatient (CLI) | payer OTHER, SELFPAY ==
[~2019-03-20] MED LIST changes: +BUPIVACAINE HCL 0.25% 30 ML VIAL As Ordered ONE; +LIDOCAINE 1% SDV INJ 30 ML VIAL As Ordered ONE; +TRIAMCINOLONE ACETONIDE SUSP 40 MG/ML VIAL (J3301) As Ordered ONE
--- NOTE | 2019-03-20 18:22 | REP ---
C-ARM VIEWS LOWER LUMBAR SPINE: CLINICAL HISTORY: Pain. Three C-Arm views lower lumbar spine performed during injection by Dr. Joseph. Marlin are seen along the lower lumbar spine. 30 seconds fluoroscopy time utilized. Electronically Signed by Noah Gandhi MD 03/21/2019 12:39 P
--- NOTE | 2019-03-30 00:48 | ECWPNPC ---
PATIENT NAME: RITU TURCIOS : 1970 GENDER: FEMALE VISIT DATE: 03/20/2019 DISCHARGE DATE: 03/20/19 1541 VISIT LOCKED DATE TIME: PHYSICIAN: LORENE KOHLI MD RESOURCE: LORENE KOHLI MD REASON FOR APPOINTMENT 1. APPROVED FOR LEVEL L4-5 RF HISTORY OF PRESENT ILLNESS HISTORY OF PRESENT ILLNESS: PAIN THE PATIENT DESCRIBES THE PAIN... FALL RISK SCREENING: SCREENING :NO FALLS REPORTED IN THE LAST YEAR CURRENT MEDICATIONS TAKING METOPROLOL SUCCINATE ER 200 MG TABLET EXTENDED RELEASE 24 HOUR 1 TABLET ORALLY ONCE A DAY, NOTES: 03/20/19 0830 TAKING MOBIC 15 MG TABLET 1 TABLET ORALLY ONCE A DAY, NOTES: TAKES NEEDED NONE LATELY TAKING SPIRONOLACTONE 25 MG TABLET 1 TABLET ORALLY TWICE A DAY, NOTES: NONE LATELY TAKING HYDRALAZINE HCL 25 MG TABLET 4 TABLET WITH FOOD ORALLY THREE TIMES A DAY, NOTES: NONE LATELY TAKING OXYCODONE HCL 5 MG TABLET 1 TABLET NEEDED ORALLY FOR PAIN EVERY 12 HRS MDD2, NOTES: 03/19/19 AM TAKING TRAMADOL HCL 50 MG TABLET 1 TABLET NEEDED ORALLY EVERY 6 HRS PRN PAIN MDD=4, NOTES: 03/19/19 PM NOT-TAKING TIZANIDINE HCL 2 MG TABLET 1 TABLET ORALLY THREE TIMES A DAY FOR MUSCLE SPASMS, NOTES: NONE LATELY NOT-TAKING HYDROCODONE-ACETAMINOPHEN 5-300 MG TABLET 1 TABLET NEEDED ORALLY FOR PAIN EVERY 12 HRS MDD2, NOTES: NONE LATELY NOT-TAKING LOSARTAN POTASSIUM 100 MG TABLET 1 TABLET ORALLY ONCE A DAY NOT-TAKING PYRIDIUM 200 MG TABLET 1 TABLET AFTER MEALS ORALLY THREE TIMES A DAY NOT-TAKING CLONIDINE HCL 0.2 MG TABLET 1 TABLET ORALLY TID NOT-TAKING GABAPENTIN 100 MG CAPSULE 1 CAPSULE ORALLY FOR PAIN THREE TIMES A DAY NOT-TAKING NORCO 10-325 MG TABLET 1 TABLET NEEDED ORALLY EVERY 6 HRS PRN SEVERE PAIN MDD=2 NOT-TAKING CARISOPRODOL 350 MG TABLET 1 TABLET NEEDED ORALLY DAILY PRN SPASM MDD=1 NOT-TAKING VESICARE 10 MG TABLET 1 TABLET ORALLY ONCE A DAY NOT-TAKING PREDNISONE 10 MG TABLET 1 TABLET ORALLY TAKE 4 TAB X 3 DAY, 3 TAB X 3 DAY, 2 TABX 3 DAY 1 TAB X 3 DAYS MEDICATION LIST REVIEWED AND RECONCILED WITH THE PATIENT PAST MEDICAL HISTORY HEMATURIA KIDNEY STONES CHRONIC BACK PAIN - WITH DORSAL STIMULATOR 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 SOCIAL HISTORY GENERAL: TOBACCO USE ARE YOU A: NONSMOKER. PAIN CLINIC PFS, CLERGY, PUBLIC HEALTH REFERRALS PFS REFERRAL NEEDED?NO CLERGY REFERRAL NEEDED?NO PUBLIC HEALTH REFERRAL NEEDED?NO WAS THE PROVIDER NOTIFIED OF ANY PERTINENT INFO?YES HAS THE PATIENT BEEN EDUCATED REGARDING HIS/HER PLAN OF CARE?YES HAS THE PATIENT BEEN EDUCATED REGARDING PAIN, THE RISK FOR PAIN, THE IMPORTANCE OF EFFECTIVE PAIN MANAGEMENT, AND THE PAIN ASSESSMENT PROCESS?YES LATEX QUESTIONNAIRE LATEX ALLERGY : HAVE YOU EVER DEVELOPED ANY TYPE OF REACTION AFTER HANDLING LATEX PRODUCTS SUCH RUBBER GLOVES, CONDOMS, DIAPHRAGMS, BALLOONS, SOCKS, OR UNDERWEAR?NO LATEX ALLERGY : HAVE YOU EVER DEVELOPED ANY TYPE OF REACTION DURING OR AFTER DENTAL APPOINTMENT, VAGINAL/RECTAL EXAMINATION, SURGICAL PROCEDURE, OR ANY OTHER EXPOSURE?NO LATEX RISK : HAVE YOU EVER HAD ANY DIFFICULTY BREATHING OR HIVES AFTER EATING OR HANDLING ANY FRUITS, OR VEGETABLES; SUCH KIWI, BANANAS, STONE FRUITS, OR CHESTNUTSNO LATEX RISK : DO YOU HAVE A PREVIOUS PERSONAL HISTORY OF MORE THAN NINE SURGERIES, SPINA BIFIDA, OR REPEATED CATHERIZATIONS? NO LATEX RISK : ARE YOU FREQUENTLY EXPOSED TO LATEX PRODUCTS IN YOUR OCCUPATION?NO DATE ASKED : 12/18/2018 ADVANCE DIRECTIVE ADVANCE DIRECTIVE DISCUSSED WITH PATIENT:YES DECLINED INFORMATION OR ASSISTANCE AT THIS TIME 03/20/19 MUSLIM [id number] BUDDHIST LANGUAGE LANGUAGES SPOKEN:SAMI NEW PATIENT PAIN DIARY TODAY'S VISITNOTES FROM 0-10, WHAT LEVEL IS YOUR PAIN TODAY?7 LEARNING BARRIERS / SPECIAL NEEDS CHANGE FROM LAST VISIT?NO BARRIERS TO LEARNING?NO HEARING IMPAIRED?NO VISION IMPAIRED?YES :CORRECTIVE LENSES COGNITIVELY IMPAIRED?NO READINESS TO LEARN?YES LEARNING PREFERENCES?NO LEARNING CAPABILITIES PRESENT?YES EMOTIONAL BARRIERS?NO SPECIAL DEVICES?NO FINANCE AND ADMINISTRATION MANAGER NEEDED?NO REVIEWED 04/03/18 LASREVIEWED 01/30/19 1444 LASREVIEWED WITH PT 03/20/19 1343 BV. HOSPITALIZATION/MAJOR DIAGNOSTIC PROCEDURE SURGERIES REVIEW OF SYSTEMS REVIEWED BY: PROVIDER: . CONSTITUTIONAL: ANY CHANGE IN YOUR MEDICAL CONDITION? NO . CHILLS NO . FEVER NO . INFECTION: DO YOU HAVE NEW INFECTIONS? NO . DO YOU HAVE HISTORY OF MRSA? NO . MUSCULOSKELETAL: ANY NEW PATTERNS OF PAIN OR NUMBNESS? YES - WORSE FOR 5 DAYS RIGHT LEG AND BACK . GASTROENTEROLOGY: ANY NEW CHANGE IN BOWEL CONTROL? NO . GENITOURINARY: ANY NEW CHANGE IN BLADDER CONTROL? NO . IS THERE A CHANCE YOU COULD BE ? NO . HEMATOLOGY/LYMPH: DO YOU TAKE ANY BLOOD THINNERS? (FOR EXAMPLE- COUMADIN, PLAVIX, AGGRENOX, PLATEL, PRADAXA, OR XARELTO) NO . WHEN WAS YOUR LAST DOSE? DATE: TIME: . NEUROLOGY: HAVE YOU FALLEN IN THE PAST 12 MONTHS? NO . ANY NEW EXTREMITY NUMBNESS OR WEAKNESS? NO . CARDIOLOGY: DO YOU HAVE A PACEMAKER OR DEFIBRILLATOR? NO . RESPIRATORY: HAVE YOU BEEN SICK IN THE PAST WEEK? NO . FEVER NO . FLU LIKE SYMPTOMS? NO . COUGH NO . INTEGUMENTARY: DO YOU HAVE ANY RASHES OR OPEN SORES? NO . ALLERGIC/IMMUNO: ARE YOU ALLERGIC TO IV DYE? NO . ANY NEW ALLERGIES? NO . PSYCHIATRIC: DO YOU HAVE THOUGHTS OF HURTING YOURSELF OR SOMEONE ELSE? NO . ARE YOU ABUSED, NEGLECTED, OR IN AN UNSAFE ENVIRONMENT? NO . ENDOCRINOLOGY: ARE YOU DIABETIC? NO . OTHER: DO YOU NEED ANY PRESCRIPTIONS? NO . IF YES, PLEASE LIST: ____ . ANY NEW PROBLEMS WITH YOUR MEDICATIONS? NO . WHEN DID YOU LAST EAT? 03/19/19 1830 . WHEN DID YOU LAST DRINK? 03/20/19 0330 . WHAT DID YOU LAST DRINK? WATER . NAME OF PERSON DRIVING YOU HOME? ELI . DO YOU HAVE ANY OTHER QUESTIONS OR CONCERNS NO . VITAL SIGNS WT 149.4 LBS, HT 5'1", BMI 28.23 INDEX, BP 168/85 MM HG, HR 86 /MIN, RR 16 /MIN, TEMP 96.4 F, OXYGEN SAT % 100%, NA INITIALS AW 1300, REVIEWED BY: BV. ASSESSMENTS SPONDYLOSIS OF LUMBAR REGION WITHOUT MYELOPATHY OR RADICULOPATHY - M47.816 (PRIMARY) TREATMENT SPONDYLOSIS OF LUMBAR REGION WITHOUT MYELOPATHY OR RADICULOPATHY SMC FACET BLOCK (PAIN)[id number] PROCEDURES PN RADIOFREQUENCY PRE PROCEDURE DIAGNOSES 1. LUMBAR SPONDYLOSIS. POST PROCEDURE DIAGNOSES 1. LUMBAR SPONDYLOSIS. PROCEDURE RIGHT L4-L5 LUMBAR FACET RADIOFREQUENCY SURGEON DR. LORENE KOHLI WAREHOUSE DISTRIBUTION MANAGER NONE ANESTHESIA LOCAL PRE PROCEDURE REPORT THE PATIENT HAS HISTORY OF CHRONIC LOW BACK PAIN. I EVALUATE THE PATIENT AND REVIEWED THE CHART. I WENT OVER THE RISKS, ALTERNATIVES, AND BENEFITS ASSOCIATED WITH THIS PROCEDURE. THE PATIENT WOULD LIKE TO PROCEED AND GIVE CONSENT TO PERFORMED THE PROCEDURE. THE PATIENT DENIES UNEXPLAINABLE WEIGHT LOSS, FEVER, CHILLS, OR NEW CHANGES IN URINARY OR BOWEL CONTROL DESCRIPTION OF PROCEDURE THE PATIENT WAS BROUGHT TO THE PROCEDURE ROOM AND PLACED IN THE PRONE POSITION. THE LUMBOSACRAL AREA WAS CLEANED WITH CHLORAPREP SOLUTION AND DRAPED ASEPTICALLY. THE PROCEDURE WAS DONE UNDER STERILE CONDITIONS. I CHECKED LATERALITY AND THE LEVEL WHERE THE PROCEDURE WAS GOING TO BE PERFORMED WITH THE PATIENT AND THE SUPPORTING STAFF AT THE MOMENT OF THE TIME OUT IN THE PROCEDURE ROOM. UNDER FLUOROSCOPIC GUIDANCE, TARGETS WERE SELECTED AT THE INTERSECTION OF THE RIGHT TRANSVERSE PROCESS OF L4 AND L5 AND WITH ITS RESPECTIVE SUPERIOR ARTICULAR PROCESS. LIDOCAINE WAS USED TO NUMB THE SKIN AND THE SUBCUTANEOUS TISSUE BELOW IT. RADIOFREQUENCY NEEDLES 22-GAUGE 15 CM LONG WITH 10 MM ACTIVE CURVE TIP WERE ADVANCED UNDER FLUOROSCOPIC GUIDANCE AND FOLLOWING PATIENT FEEDBACK UNTIL THE TARGET AREA WAS REACHED. POSITION OF THE NEEDLES WAS VERIFIED WITH AP AND LATERAL VIEWS. AFTER PROPER POSITION OF THE NEEDLE WAS ACHIEVED, WE WORKED WITH THE RIGHT SELECTED MEDIAN BRANCHES OF L3, L4 AND THE DORSAL RAMI OF L5. WE MEASURED THE CORRESPONDING IMPEDANCES, SENSORY STIMULATION AND MOTOR RESPONSES INDICATED IN THE RADIOFREQUENCY WORKSHEET. POSITION OF THE NEEDLES WAS VERIFIED AGAIN WITH AP AND LATERAL VIEWS. LIDOCAINE 1%, 2 ML, WAS INJECTED AT EACH LEVEL. RADIOFREQUENCY WAS DONE AT EACH LEVEL AT 80 DEGREES FOR 90 SECONDS. AFTER RADIOFREQUENCY WAS DONE, THE PATIENT RECEIVED BUPIVACAINE 0.125% 1 CC WITH KENALOG 5 MG AT EACH SITE. THERE WAS NO EVIDENCE OF BLOOD, PARESTHESIA OR CEREBROSPINAL FLUID DURING THE PROCEDURE. THE PATIENT WAS SENT TO THE RECOVERY ROOM. THE PATIENT WAS MOVING THE EXTREMITIES AND DOING WELL. THERE WAS NO COMPLICATION DURING THE PROCEDURE. FLUOROSCOPY TIME WAS 30 SECONDS POST PROCEDURE NOTE THE PATIENT WILL BE SEEN IN A FOLLOW UP IN THE NEXT FEW WEEKS. INSTRUCTIONS WERE GIVEN, QUESTIONS WERE ANSWERED, AND THE PATIENT EXPRESSED UNDERSTANDING AND AGREES WITH THE PLAN. I, PATRICIO LOPEZ, DOCUMENTED THE ABOVE INFORMATION ACTING A SCRIBE FOR DR. KOHLI. I HAVE REVIEWED THE ABOVE DOCUMENT, WRITTEN BY PATRICIO LOPEZ SCRIBE AND I VERIFY THAT IT IS ACCURATE. PROCEDURE CODES 6045F RADXPS IN END [id number] PXD [id number] DESTROY LUMB/SAC FACET JNT, MODIFIERS: RT DISPOSITION & COMMUNICATION FOLLOW UP 3 WEEKS ELECTRONICALLY SIGNED BY LORENE KOHLI MD, MD ON 03/29/2019 AT 01:59 PM EDT DISCLAIMER : THIS IS A VISIT SUMMARY EXTRACTED FROM THE [employer] CHART. IT IS NOT A COPY OF THE [employer] PROGRESS NOTE. MTDD
== END ==
LOC: M PAIN 13:00
PROVIDERS: ATTEND Anesthesiology
DX: M47.816 Spondylosis without myelopathy or radiculopathy, lumbar region (principal); R31.9 Hematuria, unspecified; Z87.442 Personal history of urinary calculi; N28.89 Other specified disorders of kidney and ureter; Z79.891 Long term (current) use of opiate analgesic; Z79.899 Other long term (current) drug therapy; Z88.1 Allergy status to other antibiotic agents; Z88.2 Allergy status to sulfonamides
CPT/HCPCS: 64635; J3301

== ENCOUNTER → 2019-04-24 | Outpatient (CLI) | payer OTHER ==
[~2019-04-24] MED LIST changes: -BUPIVACAINE HCL 0.25% 30 ML VIAL As Ordered ONE; -LIDOCAINE 1% SDV INJ 30 ML VIAL As Ordered ONE; -TRIAMCINOLONE ACETONIDE SUSP 40 MG/ML VIAL (J3301) As Ordered ONE
--- NOTE | 2019-04-25 23:23 | ECWPNPC ---
PATIENT NAME: RITU TURCIOS : 1970 GENDER: FEMALE VISIT DATE: 04/24/2019 DISCHARGE DATE: 04/24/19 1450 VISIT LOCKED DATE TIME: PHYSICIAN: LIDIA KHAN RESOURCE: LIDIA KHAN REASON FOR APPOINTMENT 1. POST PROC HISTORY OF PRESENT ILLNESS HISTORY OF PRESENT ILLNESS: PAIN THE PATIENT DESCRIBES THE PAIN... 48 YEAR OLD FEMALE IN FOR POST RF PROCEDURE. SHE FEELS THE PROCEDURE WORKED WELL FOR 1 WEEK BUT THEN THE PAIN RETURNED. SHE RATES HER PAIN AT A 7/10 CURRENTLY AND DESCRIBES IT SHARP AND STABBING. FALL RISK SCREENING: SCREENING :NO FALLS REPORTED IN THE LAST YEAR CURRENT MEDICATIONS TAKING METOPROLOL SUCCINATE ER 100 MG TABLET EXTENDED RELEASE 24 HOUR 1 TABLET ORALLY BID TAKING MOBIC 15 MG TABLET 1 TABLET ORALLY ONCE A DAY TAKING HYDRALAZINE HCL 25 MG TABLET 4 TABLET WITH FOOD ORALLY THREE TIMES A DAY TAKING OXYCODONE HCL 5 MG TABLET 1 TABLET NEEDED ORALLY FOR PAIN EVERY 12 HRS MDD2 TAKING TRAMADOL HCL 50 MG TABLET 1 TABLET NEEDED ORALLY EVERY 6 HRS PRN PAIN MDD=4 TAKING CLONIDINE 0.1 MG/24HR PATCH WEEKLY 1 PATCH TO SKIN TRANSDERMAL TAKING TEKTURNA HCT 300-25 MG TABLET 1 TABLET ORALLY ONCE A DAY NOT-TAKING SPIRONOLACTONE 25 MG TABLET 1 TABLET ORALLY TWICE A DAY, NOTES: NONE LATELY NOT-TAKING TIZANIDINE HCL 2 MG TABLET 1 TABLET ORALLY THREE TIMES A DAY FOR MUSCLE SPASMS, NOTES: NONE LATELY NOT-TAKING HYDROCODONE-ACETAMINOPHEN 5-300 MG TABLET 1 TABLET NEEDED ORALLY FOR PAIN EVERY 12 HRS MDD2, NOTES: NONE LATELY NOT-TAKING LOSARTAN POTASSIUM 100 MG TABLET 1 TABLET ORALLY ONCE A DAY NOT-TAKING PYRIDIUM 200 MG TABLET 1 TABLET AFTER MEALS ORALLY THREE TIMES A DAY NOT-TAKING CLONIDINE HCL 0.2 MG TABLET 1 TABLET ORALLY TID NOT-TAKING GABAPENTIN 100 MG CAPSULE 1 CAPSULE ORALLY FOR PAIN THREE TIMES A DAY NOT-TAKING NORCO 10-325 MG TABLET 1 TABLET NEEDED ORALLY EVERY 6 HRS PRN SEVERE PAIN MDD=2 NOT-TAKING CARISOPRODOL 350 MG TABLET 1 TABLET NEEDED ORALLY DAILY PRN SPASM MDD=1 NOT-TAKING VESICARE 10 MG TABLET 1 TABLET ORALLY ONCE A DAY NOT-TAKING PREDNISONE 10 MG TABLET 1 TABLET ORALLY TAKE 4 TAB X 3 DAY, 3 TAB X 3 DAY, 2 TABX 3 DAY 1 TAB X 3 DAYS MEDICATION LIST REVIEWED AND RECONCILED WITH THE PATIENT PAST MEDICAL HISTORY HEMATURIA KIDNEY STONES CHRONIC BACK PAIN - WITH DORSAL STIMULATOR 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 SOCIAL HISTORY GENERAL: TOBACCO USE ARE YOU A: NONSMOKER. PAIN CLINIC PFS, CLERGY, PUBLIC HEALTH REFERRALS PFS REFERRAL NEEDED?NO CLERGY REFERRAL NEEDED?NO PUBLIC HEALTH REFERRAL NEEDED?NO WAS THE PROVIDER NOTIFIED OF ANY PERTINENT INFO?YES HAS THE PATIENT BEEN EDUCATED REGARDING HIS/HER PLAN OF CARE?YES HAS THE PATIENT BEEN EDUCATED REGARDING PAIN, THE RISK FOR PAIN, THE IMPORTANCE OF EFFECTIVE PAIN MANAGEMENT, AND THE PAIN ASSESSMENT PROCESS?YES LATEX QUESTIONNAIRE LATEX ALLERGY : HAVE YOU EVER DEVELOPED ANY TYPE OF REACTION AFTER HANDLING LATEX PRODUCTS SUCH RUBBER GLOVES, CONDOMS, DIAPHRAGMS, BALLOONS, SOCKS, OR UNDERWEAR?NO LATEX ALLERGY : HAVE YOU EVER DEVELOPED ANY TYPE OF REACTION DURING OR AFTER DENTAL APPOINTMENT, VAGINAL/RECTAL EXAMINATION, SURGICAL PROCEDURE, OR ANY OTHER EXPOSURE?NO LATEX RISK : HAVE YOU EVER HAD ANY DIFFICULTY BREATHING OR HIVES AFTER EATING OR HANDLING ANY FRUITS, OR VEGETABLES; SUCH KIWI, BANANAS, STONE FRUITS, OR CHESTNUTSNO LATEX RISK : DO YOU HAVE A PREVIOUS PERSONAL HISTORY OF MORE THAN NINE SURGERIES, SPINA BIFIDA, OR REPEATED CATHERIZATIONS? NO LATEX RISK : ARE YOU FREQUENTLY EXPOSED TO LATEX PRODUCTS IN YOUR OCCUPATION?NO DATE ASKED : 12/18/2018 ADVANCE DIRECTIVE ADVANCE DIRECTIVE DISCUSSED WITH PATIENT:YES DECLINED INFORMATION OR ASSISTANCE AT THIS TIME 03/20/19 BUDDHISM [id number] BAPTISM LANGUAGE LANGUAGES SPOKEN:UKRAINIAN NEW PATIENT PAIN DIARY TODAY'S VISITNOTES FROM 0-10, WHAT LEVEL IS YOUR PAIN TODAY?7 LEARNING BARRIERS / SPECIAL NEEDS CHANGE FROM LAST VISIT?NO BARRIERS TO LEARNING?NO HEARING IMPAIRED?NO VISION IMPAIRED?YES :CORRECTIVE LENSES COGNITIVELY IMPAIRED?NO READINESS TO LEARN?YES LEARNING PREFERENCES?NO LEARNING CAPABILITIES PRESENT?YES EMOTIONAL BARRIERS?NO SPECIAL DEVICES?NO CONCRETE MIXER NEEDED?NO REVIEWED 04/03/18 LASREVIEWED 01/30/19 1444 LASREVIEWED WITH PT 03/20/19 1343 BVREVIEWED WITH PATEINT 04/24/19 1411 [facility]. HOSPITALIZATION/MAJOR DIAGNOSTIC PROCEDURE SURGERIES REVIEW OF SYSTEMS REVIEWED BY: PROVIDER: TANG DODD . CONSTITUTIONAL: ANY CHANGE IN YOUR MEDICAL CONDITION? NO . CHILLS NO . FEVER NO . INFECTION: DO YOU HAVE NEW INFECTIONS? NO . DO YOU HAVE HISTORY OF MRSA? NO . MUSCULOSKELETAL: ANY NEW PATTERNS OF PAIN OR NUMBNESS? YES- LOWER BACK PAIN HAS RETURNED THAT RADISTES DOWN RIGHT LEG, STATES THE RFA WORKED FOR ABOUT A 1 WEEK, STATES SHE FELT GREAT THE NEXT DAY AND FOR ABOUT A WEEK, BUT STATES PAIN HAS RETURNED TO PRE PROCEDURE LEVEL . GASTROENTEROLOGY: ANY NEW CHANGE IN BOWEL CONTROL? NO . GENITOURINARY: ANY NEW CHANGE IN BLADDER CONTROL? NO . IS THERE A CHANCE YOU COULD BE ? NO . HEMATOLOGY/LYMPH: DO YOU TAKE ANY BLOOD THINNERS? (FOR EXAMPLE- COUMADIN, PLAVIX, AGGRENOX, PLATEL, PRADAXA, OR XARELTO) NO . WHEN WAS YOUR LAST DOSE? DATE: TIME: . NEUROLOGY: HAVE YOU FALLEN IN THE PAST 12 MONTHS? NO . ANY NEW EXTREMITY NUMBNESS OR WEAKNESS? NO . CARDIOLOGY: DO YOU HAVE A PACEMAKER OR DEFIBRILLATOR? NO . RESPIRATORY: HAVE YOU BEEN SICK IN THE PAST WEEK? NO . FEVER NO . FLU LIKE SYMPTOMS? NO . COUGH NO . INTEGUMENTARY: DO YOU HAVE ANY RASHES OR OPEN SORES? NO . ALLERGIC/IMMUNO: ARE YOU ALLERGIC TO IV DYE? NO . ANY NEW ALLERGIES? NO . PSYCHIATRIC: DO YOU HAVE THOUGHTS OF HURTING YOURSELF OR SOMEONE ELSE? NO . ARE YOU ABUSED, NEGLECTED, OR IN AN UNSAFE ENVIRONMENT? NO . ENDOCRINOLOGY: ARE YOU DIABETIC? NO . OTHER: DO YOU NEED ANY PRESCRIPTIONS? NO . IF YES, PLEASE LIST: ____ . ANY NEW PROBLEMS WITH YOUR MEDICATIONS? NO . WHEN DID YOU LAST EAT? ____ . WHEN DID YOU LAST DRINK? ____ . WHAT DID YOU LAST DRINK? ____ . NAME OF PERSON DRIVING YOU HOME? ____ . DO YOU HAVE ANY OTHER QUESTIONS OR CONCERNS YES- STATES THAT THE RFA WORKED GREAT FOR ONE WEEK BUT PAIN HAS RETURNED TO PRE PROCEDURE LEVEL . VITAL SIGNS WT 150.2 LBS, HT 5'1", BMI 28.38 INDEX, BP 171/81 MM HG, HR 85 /MIN, RR 16 /MIN, TEMP 98.8 F, OXYGEN SAT % 100%, SAFE IN ENV? (Y/N) YES, NA INITIALS [place] 14:04, REVIEWED BY: YES. EXAMINATION GENERAL EXAMINATION: GENERALNO ACUTE DISTRESS, WELL NOURISHED AND HYDRATED. PSYCHAPPROPRIATE MOOD AND AFFECT . LUNGS:CLEAR TO AUSCULTATION BILATERALLY, NO WHEEZES, RHONCHI, RALES. HEART:NO MURMURS, REGULAR RATE AND RHYTHM. BACK:INCREASED PAIN WITH FACET LOADING, SURROUNDING SKIN SHOWS NO ERYTHEMA, ECCHYMOSIS, INCREASED WARMTH, AND/OR SKIN ERUPTIONS. . MUSCULOSKELETAL:LOWER EXTREMITIES HAVE EQUAL STRENGTH BILATERALLY. . ASSESSMENTS SPONDYLOSIS OF LUMBAR REGION WITHOUT MYELOPATHY OR RADICULOPATHY - M47.816 (PRIMARY) TREATMENT SPONDYLOSIS OF LUMBAR REGION WITHOUT MYELOPATHY OR RADICULOPATHY NOTES: DIAGNOSTIC FACET BLOCK FOR COOL RADIO FREQUENCY #1 L4-L5. CLINICAL NOTES: 48 YEAR OLD FEMALE IN FOR POST RF FOLLOW UP. GIVEN PRESENTING SYMPTOMS AND RESULTS OF PHYSICAL EXAMINATION RECOMMENDED DIAGNOSTIC FACET BLOCK FOR THE COOL RF WITH FOLLOW UP. PATIENT HAS EXPRESSED UNDERSTANDING OF AND WAS IN AGREEMENT WITH TREATMENT PLAN. GIVEN TIME TO ASK QUESTIONS AND EXPRESS CONCERNS. , I[employer] REGISTRY REVIEWED AND DEMONSTRATES COMPLLIANCE. (REF # [id number] ) BRINGS IN MEDICATIONS WHICH IS APPROPRIATE FOR WHAT WAS DISPENSED. RECENT URINE TOXICOLOGY REVIEWED. NO UNAUTHORIZED MEDICATIONS. NO ILLICIT SUBSTANCES AND PRESCRIBED MEDICATIONS WERE PRESENT. OTHERS NOTES: OPTIONS: FACET JOINT INJECTION MATERIAL WAS PRINTED 04/24/19 9345 NLJ. PROCEDURE CODES FA211 ESTABILISHED PATIENT [facility] FACILITY CHARGE DISPOSITION & COMMUNICATION FOLLOW UP POST PROCEDURE (REASON: DIAGNOSTIC FACET BLOCK FOR COOL RADIO FREQUENCY #1 L4-L5) ELECTRONICALLY SIGNED BY TAMANNA HOOPER ON 04/25/2019 AT 10:52 AM EDT DISCLAIMER : THIS IS A VISIT SUMMARY EXTRACTED FROM THE [employer] CHART. IT IS NOT A COPY OF THE [employer] PROGRESS NOTE. CHELSEA
== END ==
LOC: M PAIN 14:15
PROVIDERS: ATTEND Family Medicine
DX: M47.816 Spondylosis without myelopathy or radiculopathy, lumbar region (principal); Z88.1 Allergy status to other antibiotic agents; Z79.899 Other long term (current) drug therapy

== ENCOUNTER → 2019-09-27 | Outpatient (CLI) | payer OTHER ==
--- NOTE | 2019-10-01 02:02 | ECWPNPC ---
PATIENT NAME: RITU TURCIOS : 1970 GENDER: FEMALE VISIT DATE: 09/27/2019 DISCHARGE DATE: 09/27/19 1347 VISIT LOCKED DATE TIME: PHYSICIAN: LIDIA KHAN RESOURCE: LIDIA KHAN REASON FOR APPOINTMENT 1. REEVALUATE FOR INJ. HISTORY OF PRESENT ILLNESS HISTORY OF PRESENT ILLNESS: PAIN THE PATIENT DESCRIBES THE PAIN... 49-YEAR-OLD FEMALE IN FOR CHRONIC PAIN FOLLOW-UP. PATIENT WAS SUPPOSED TO HAVE A PROCEDURE PRIOR TO VISIT HOWEVER SHE WAS UNABLE TO DO SO GIVEN HER ELEVATED BLOOD PRESSURE. SHE RATES HER PAIN CURRENTLY AT AN 8 OUT OF 10 AND DESCRIBES IT SHARP. PATIENT WOULD LIKE TO DISCUSS POTENTIAL SHORT-TERM COURSE OF SOMA TO HELP ALLEVIATE HER SYMPTOMS SHE HAS BEEN ON THIS BEFORE AND IT HAS BEEN EFFECTIVE. FALL RISK SCREENING: SCREENING :NO FALLS REPORTED IN THE LAST YEAR CURRENT MEDICATIONS TAKING METOPROLOL SUCCINATE ER 100 MG TABLET EXTENDED RELEASE 24 HOUR 1 TABLET ORALLY BID TAKING MOBIC 15 MG TABLET 1 TABLET ORALLY ONCE A DAY TAKING HYDRALAZINE HCL 50 MG TABLET TABLET WITH FOOD ORALLY THREE TIMES A DAY TAKING TEKTURNA HCT 300-25 MG TABLET 1 TABLET ORALLY ONCE A DAY TAKING TIZANIDINE HCL 2 MG TABLET 1 TABLET ORALLY THREE TIMES A DAY FOR MUSCLE SPASMS, NOTES: NONE LATELY TAKING OXYCODONE HCL 5 MG TABLET 1 TABLET NEEDED ORALLY FOR PAIN EVERY 12 HRS MDD2 TAKING TRAMADOL HCL 50 MG TABLET 1 TABLET NEEDED ORALLY EVERY 6 HRS PRN PAIN MDD=4 TAKING SPIRONOLACTONE 25 MG TABLET 1 TABLET ORALLY TWICE A DAY, NOTES: NONE LATELY TAKING CLONIDINE HCL 0.2 MG TABLET 1 TABLET ORALLY TID NOT-TAKING CLONIDINE 0.1 MG/24HR PATCH WEEKLY 1 PATCH TO SKIN TRANSDERMAL NOT-TAKING HYDROCODONE-ACETAMINOPHEN 5-300 MG TABLET 1 TABLET NEEDED ORALLY FOR PAIN EVERY 12 HRS MDD2, NOTES: NONE LATELY NOT-TAKING LOSARTAN POTASSIUM 100 MG TABLET 1 TABLET ORALLY ONCE A DAY NOT-TAKING PYRIDIUM 200 MG TABLET 1 TABLET AFTER MEALS ORALLY THREE TIMES A DAY NOT-TAKING GABAPENTIN 100 MG CAPSULE 1 CAPSULE ORALLY FOR PAIN THREE TIMES A DAY NOT-TAKING NORCO 10-325 MG TABLET 1 TABLET NEEDED ORALLY EVERY 6 HRS PRN SEVERE PAIN MDD=2 NOT-TAKING CARISOPRODOL 350 MG TABLET 1 TABLET NEEDED ORALLY DAILY PRN SPASM MDD=1 NOT-TAKING VESICARE 10 MG TABLET 1 TABLET ORALLY ONCE A DAY NOT-TAKING PREDNISONE 10 MG TABLET 1 TABLET ORALLY TAKE 4 TAB X 3 DAY, 3 TAB X 3 DAY, 2 TABX 3 DAY 1 TAB X 3 DAYS MEDICATION LIST REVIEWED AND RECONCILED WITH THE PATIENT PAST MEDICAL HISTORY HEMATURIA KIDNEY STONES CHRONIC BACK PAIN - WITH DORSAL STIMULATOR IMPLANT, REMOVED 2016 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 1 SON(S) , 1 DAUGHTER(S) - HEALTHY. DAD , CORONARY ARTERY DISEASE, MOM WITH BREAST AND UTERINE CANCERDAUGHTER WITH LUPUS AND DEGENERATIVE BONE DISEASE. SOCIAL HISTORY GENERAL: TOBACCO USE ARE YOU A: NONSMOKER. PAIN CLINIC PFS, CLERGY, PUBLIC HEALTH REFERRALS PFS REFERRAL NEEDED?NO CLERGY REFERRAL NEEDED?NO PUBLIC HEALTH REFERRAL NEEDED?NO WAS THE PROVIDER NOTIFIED OF ANY PERTINENT INFO?YES HAS THE PATIENT BEEN EDUCATED REGARDING HIS/HER PLAN OF CARE?YES HAS THE PATIENT BEEN EDUCATED REGARDING PAIN, THE RISK FOR PAIN, THE IMPORTANCE OF EFFECTIVE PAIN MANAGEMENT, AND THE PAIN ASSESSMENT PROCESS?YES LATEX QUESTIONNAIRE LATEX ALLERGY : HAVE YOU EVER DEVELOPED ANY TYPE OF REACTION AFTER HANDLING LATEX PRODUCTS SUCH RUBBER GLOVES, CONDOMS, DIAPHRAGMS, BALLOONS, SOCKS, OR UNDERWEAR?NO LATEX ALLERGY : HAVE YOU EVER DEVELOPED ANY TYPE OF REACTION DURING OR AFTER DENTAL APPOINTMENT, VAGINAL/RECTAL EXAMINATION, SURGICAL PROCEDURE, OR ANY OTHER EXPOSURE?NO DATE ASKED : 12/18/2018 LATEX RISK : HAVE YOU EVER HAD ANY DIFFICULTY BREATHING OR HIVES AFTER EATING OR HANDLING ANY FRUITS, OR VEGETABLES; SUCH KIWI, BANANAS, STONE FRUITS, OR CHESTNUTSNO LATEX RISK : DO YOU HAVE A PREVIOUS PERSONAL HISTORY OF MORE THAN NINE SURGERIES, SPINA BIFIDA, OR REPEATED CATHERIZATIONS? NO LATEX RISK : ARE YOU FREQUENTLY EXPOSED TO LATEX PRODUCTS IN YOUR OCCUPATION?NO ADVANCE DIRECTIVE ADVANCE DIRECTIVE DISCUSSED WITH PATIENT:YES DECLINED INFORMATION OR ASSISTANCE AT THIS TIME 09/27/2019 CHRISTIANITY [id number] FAITH LANGUAGE LANGUAGES SPOKEN:SERBIAN NEW PATIENT PAIN DIARY TODAY'S VISITNOTES FROM 0-10, WHAT LEVEL IS YOUR PAIN TODAY?7 ALCOHOL SCREENING DID YOU HAVE A DRINK CONTAINING ALCOHOL IN THE PAST YEAR?YES HOW OFTEN DID YOU HAVE A DRINK CONTAINING ALCOHOL IN THE PAST YEAR?MONTHLY OR LESS (1 POINT) HOW MANY DRINKS DID YOU HAVE ON A TYPICAL DAY WHEN YOU WERE DRINKING IN THE PAST YEAR?1 OR 2 (0 POINTS) HOW OFTEN DID YOU HAVE SIX OR MORE DRINKS ON ONE OCCASION IN THE PAST YEAR?NEVER (0 POINTS) POINTS1 INTERPRETATIONNEGATIVE RECREATIONAL DRUG USE DRUG USE?NO LEARNING BARRIERS / SPECIAL NEEDS CHANGE FROM LAST VISIT?NO BARRIERS TO LEARNING?NO HEARING IMPAIRED?NO VISION IMPAIRED?YES :CORRECTIVE LENSES COGNITIVELY IMPAIRED?NO READINESS TO LEARN?YES LEARNING PREFERENCES?NO LEARNING CAPABILITIES PRESENT?YES EMOTIONAL BARRIERS?NO SPECIAL DEVICES?NO SERVOMECHANISM DESIGNER NEEDED?NO REVIEWED 04/03/18 LASREVIEWED 01/30/19 1444 LASREVIEWED WITH PT 03/20/19 1343 BVREVIEWED WITH PATEINT 04/24/19 1411 NLJREVIEWED WITH PATIENT 09/27/2019 LAS. HOSPITALIZATION/MAJOR DIAGNOSTIC PROCEDURE SURGERIES REVIEW OF SYSTEMS REVIEWED BY: PROVIDER: TANG DODD . CONSTITUTIONAL: ANY CHANGE IN YOUR MEDICAL CONDITION? NO . CHILLS NO . FEVER NO . INFECTION: DO YOU HAVE NEW INFECTIONS? NO . DO YOU HAVE HISTORY OF MRSA? NO . MUSCULOSKELETAL: ANY NEW PATTERNS OF PAIN OR NUMBNESS? PT REPORTS AN INCREASE IN PAIN, FEELS IT IS "CRUSHING" HER . GASTROENTEROLOGY: ANY NEW CHANGE IN BOWEL CONTROL? NO . GENITOURINARY: ANY NEW CHANGE IN BLADDER CONTROL? NO . IS THERE A CHANCE YOU COULD BE ? NO . HEMATOLOGY/LYMPH: DO YOU TAKE ANY BLOOD THINNERS? (FOR EXAMPLE- COUMADIN, PLAVIX, AGGRENOX, PLATEL, PRADAXA, OR XARELTO) NO . WHEN WAS YOUR LAST DOSE? DATE: TIME: . NEUROLOGY: HAVE YOU FALLEN IN THE PAST 12 MONTHS? NO . ANY NEW EXTREMITY NUMBNESS OR WEAKNESS? NO . CARDIOLOGY: DO YOU HAVE A PACEMAKER OR DEFIBRILLATOR? NO . RESPIRATORY: HAVE YOU BEEN SICK IN THE PAST WEEK? NO . FEVER NO . FLU LIKE SYMPTOMS? NO . COUGH NO . INTEGUMENTARY: DO YOU HAVE ANY RASHES OR OPEN SORES? NO . ALLERGIC/IMMUNO: ARE YOU ALLERGIC TO IV DYE? NO . ANY NEW ALLERGIES? NO . PSYCHIATRIC: DO YOU HAVE THOUGHTS OF HURTING YOURSELF OR SOMEONE ELSE? NO . ARE YOU ABUSED, NEGLECTED, OR IN AN UNSAFE ENVIRONMENT? NO . ENDOCRINOLOGY: ARE YOU DIABETIC? NO . OTHER: DO YOU NEED ANY PRESCRIPTIONS? NO . IF YES, PLEASE LIST: ____ . ANY NEW PROBLEMS WITH YOUR MEDICATIONS? NO . WHEN DID YOU LAST EAT? ____ . WHEN DID YOU LAST DRINK? ____ . WHAT DID YOU LAST DRINK? ____ . NAME OF PERSON DRIVING YOU HOME? ____ . DO YOU HAVE ANY OTHER QUESTIONS OR CONCERNS NO . VITAL SIGNS WT 152.4 LBS, HT 5'1", BMI 28.79 INDEX, BP 207/98 MM HG, REPEAT BP MANUAL 186/98, HR 97 /MIN, RR 18 /MIN, TEMP 98.9 F, OXYGEN SAT % 98%, SAFE IN ENV? (Y/N) YES, REVIEWED BY: JABARI FOLLOWED FOR BLOOD PRESSURE BY DR. SERNA, DR. DORMAN. EXAMINATION GENERAL EXAMINATION: GENERALNO ACUTE DISTRESS, WELL NOURISHED AND HYDRATED. PSYCHAPPROPRIATE MOOD AND AFFECT . LUNGS:CLEAR TO AUSCULTATION BILATERALLY, NO WHEEZES, RHONCHI, RALES. HEART:NO MURMURS, REGULAR RATE AND RHYTHM. ASSESSMENTS SPONDYLOSIS OF LUMBAR REGION WITHOUT MYELOPATHY OR RADICULOPATHY - M47.816 (PRIMARY) TREATMENT SPONDYLOSIS OF LUMBAR REGION WITHOUT MYELOPATHY OR RADICULOPATHY REFILL CARISOPRODOL TABLET, 350 MG, 1 TABLET NEEDED, ORALLY, DAILY PRN SPASM MDD=1, 30 DAY(S), 14, REFILLS 0 CLINICAL NOTES: 49-YEAR-OLD FEMALE IN FOR CHRONIC PAIN FOLLOW-UP. SHE DOES ADMIT TO AN UPCOMING APPOINTMENT WITH A SPINAL SURGEON IN [place]. GIVEN PRESENTING SYMPTOMS AND RESULTS OF PHYSICAL EXAMINATION RECOMMENDED SHORT COURSE OF SOMA WITH FOLLOW-UP IN 2 MONTHS. PATIENT HAS EXPRESSED UNDERSTANDING OF AND WAS IN AGREEMENT WITH TREATMENT PLAN. GIVEN TIME TO ASK QUESTIONS AND EXPRESS CONCERNS., ISTOP REGISTRY REVIEWED AND DEMONSTRATES COMPLLIANCE. (REF # [id number] ) BRINGS IN MEDICATIONS WHICH IS APPROPRIATE FOR WHAT WAS DISPENSED. RECENT URINE TOXICOLOGY REVIEWED. NO UNAUTHORIZED MEDICATIONS. NO ILLICIT SUBSTANCES AND PRESCRIBED MEDICATIONS WERE PRESENT. PREVENTIVE MEDICINE PAIN CLINIC TEACHING: MEDICATIONS INFORMATIONAL HANDOUT FOR SOMA PRINTED AND REVIEWED WITH PATIENT, PATIENT VERBALIZES UNDERSTANDING. 09/27/2019 LAS. PROCEDURE CODES FA211 ESTABILISHED PATIENT [facility] CHARGE DISPOSITION & COMMUNICATION FOLLOW UP 2 MONTHS (REASON: BACK PAIN) ELECTRONICALLY SIGNED BY TAMANNA HOOPER ON 09/30/2019 AT 08:38 AM EST DISCLAIMER : THIS IS A VISIT SUMMARY EXTRACTED FROM THE [employer] CHART. IT IS NOT A COPY OF THE [employer] PROGRESS NOTE. CHELSEA
== END ==
LOC: M PAIN 13:00
PROVIDERS: ATTEND Family Medicine
DX: M47.816 Spondylosis without myelopathy or radiculopathy, lumbar region (principal); G89.29 Other chronic pain; Z88.1 Allergy status to other antibiotic agents; Z91.09 Other allergy status, other than to drugs and biological substances; Z79.899 Other long term (current) drug therapy

== ENCOUNTER 2019-10-05 08:39 | Emergency (ER) | payer OTHER ==
[~2019-10-05] VITALS: Ht 154.9 cm; Wt 68.7 kg
[2019-10-05] MEDS ORDERED: CLON0.3T (08:54)
[2019-10-05] MEDS ORDERED: HYDR-3910 (08:54)
[2019-10-05] MEDS ORDERED: CARI1TAB7 (08:54)
[2019-10-05] MEDS ORDERED: SPIR-10 (08:54)
--- NOTE | 2019-10-05 09:45 | ECGEPIP ---
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
[2019-10-05 09:55] LABS: BASO % 0.4 % (0.0-1.0); EOS # 0.1 10^3/uL (0.0-0.5); EOS % 1.8 % (0.0-3.0); HEMATOCRIT 40.5 % (36.0-47.0); LYMPH # 1.5 10^3/uL (1.5-5.0); LYMPH % 22.5 % (24.0-44.0); MEAN CORPUSCULAR HGB CONC 29.6 g/dl (32.0-36.5); MEAN CORPUSCULAR VOLUME 91.2 fl (80.0-96.0); MONO # 0.5 10^3/uL (0.0-0.8); MONO % 7.8 % (0.0-5.0); NEUTROPHILS # 4.6 10^3/uL (1.5-8.5); NEUTROPHILS % 67.2 % (36.0-66.0); PLATELET COUNT, AUTOMATED 200 10^3/uL (150-450); RED BLOOD COUNT 4.44 10^6/uL (4.00-5.40); WHITE BLOOD COUNT 6.8 10^3/uL (4.0-10.0)
[2019-10-05 10:27] LABS: CK-MB VALUE MASS < 1.0 NG/ML (<3.6); CPK CREATINE PHOSPHOKINASE 61 U/L (26-192); MB/CK RELATIVE INDEX 1.64 (< OR =4); TROPONIN I < 0.02 NG/ML (< 0.10)
[2019-10-05 12:13] VITALS: BP 122/76
== END 2019-10-05 12:21 | disposition home or self-care (01) ==
LOC: M ED 08:39
DX: Z01.30 Encounter for examination of blood pressure without abnormal findings (principal); R53.83 Other fatigue; I10 Essential (primary) hypertension; Z87.42 Personal history of other diseases of the female genital tract; Z88.1 Allergy status to other antibiotic agents; Z88.2 Allergy status to sulfonamides; Z79.891 Long term (current) use of opiate analgesic; Z79.899 Other long term (current) drug therapy

== ENCOUNTER → 2019-10-08 | Outpatient (CLI) | payer OTHER ==
[~2019-10-08] MED LIST changes: +CARI1TAB7; +CLON0.3T; +SPIR-10
--- NOTE | 2019-10-08 19:29 | REPVR ---
PROCEDURE INFORMATION: Exam: MR Lumbar Spine Without Contrast. Exam date and time: 10/08/2019 12:22 PM Age: 49 years old Clinical indication: Low back pain; Prior surgery; Surgery date: 6+ months; Surgery type: Fusion; Additional info: Lbp TECHNIQUE: Imaging protocol: Multiplanar magnetic resonance images of the lumbar spine without intravenous contrast. COMPARISON: MRI-Spine, L.S. without con 06/20/2018 4:58 PM FINDINGS: Vertebrae: There is been fusion of L5 and S1. An opaque spacing graft is present in the disc space. There are metallic screws at the anterior aspect of the vertebra with artifact. Spinal cord: The conus is normal in size with no evidence of abnormal bright signal intensity and ending at L1. L1-L2: Mild central disc protrusion. L2-L3: Mild central disc protrusion: L3-L4: There is a small central disc protrusion causing mild impression on the thecal sac. This along with severe facet hypertrophy causing mild to moderate central spinal canal stenosis. L4-L5: Normal-appearing disc space, however, there is severe facet hypertrophy and causing mild impression on the posterior aspect of the thecal sac. L5-S1: There is a right paracentral disc osteophyte complex causing impression on the anterior right side of the thecal sac and very similar to the examination of 2018. Other bones/joints: The marrow space has a normal signal intensity. Kidneys and ureters: There is enlargement of the right kidney consistent with hypertrophy and unchanged since 2018. The left kidney is very small and atrophic. Soft tissues: Unremarkable. IMPRESSION: 1. Chronic bone fusion with screws L5-S1. Large right disc osteophyte complex causing impression on the anterior right side of the thecal sac and similar to 2018. 2. L4-L5 demonstrating facet hypertrophy. 3. L3-L4 level demonstrating mild to moderate central spinal canal stenosis unchanged. Electronically signed by: Rommel Peña On 10/08/2019 19:29:08 PM
== END ==
LOC: M RAD 07:09
PROVIDERS: ATTEND Family Medicine
DX: M54.5 Low back pain (principal); M43.27 Fusion of spine, lumbosacral region; M25.78 Osteophyte, vertebrae; M48.061 Spinal stenosis, lumbar region without neurogenic claudication

== ENCOUNTER → 2019-11-25 | Outpatient (CLI) | payer OTHER ==
--- NOTE | 2019-11-27 03:39 | ECWPNPC ---
PATIENT NAME: RITU TURCIOS : 1970 GENDER: FEMALE VISIT DATE: 11/25/2019 DISCHARGE DATE: 11/25/19 1203 VISIT LOCKED DATE TIME: PHYSICIAN: LIDIA KHAN RESOURCE: LIDIA KHAN REASON FOR APPOINTMENT 1. BACK PAIN HISTORY OF PRESENT ILLNESS HISTORY OF PRESENT ILLNESS: PAIN THE PATIENT DESCRIBES THE PAINDURING THE LAST MONTH SEVERITY - PAIN SCORE OF7/10 LOCATIONSLOWER BACK QUALITYSTABBING DURATIONCONTINUOUS, CONSTANT, ALL DAY, MAINLY DURING THE DAY, AWAKENS FROM SLEEEP PAIN IS INCREASED BY:ACTIVITIES, PROLONGED STANDING PAIN IS DECREASED BY:OTHERS LAYING DOWN TAKES PRESSURE OFF BACK PERMISSION REQUESTED AND RECIEVED TO PERFORM TELEHEALTH VISIT. 49-YEAR-OLD FEMALE IN FOR CHRONIC PAIN FOLLOW-UP. SHE RATES HER PAIN CURRENTLY AT A 7 OUT OF 10 AND DESCRIBES IT STABBING. SHE FEELS HER MEDICATIONS ARE WORKING WELL AND DENIES MED SIDE EFFECTS AT THIS TIME. SHE DOES ADMIT TO A VISIT TO A SPINAL SURGEON WHO REFERRED HER TO [facility] FOR TRACTION AT PHYSICAL THERAPY. HOWEVER PATIENT HAS NOT BEEN ABLE TO ATTEND PHYSICAL THERAPY RELATED TO [facility]'S CLOSURE GIVEN COVID-19. FALL RISK SCREENING: SCREENING :NO FALLS REPORTED IN THE LAST YEAR CURRENT MEDICATIONS TAKING METOPROLOL SUCCINATE ER 100 MG TABLET EXTENDED RELEASE 24 HOUR 1 TABLET ORALLY BID TAKING HYDRALAZINE HCL 50 MG TABLET TABLET WITH FOOD ORALLY THREE TIMES A DAY TAKING TEKTURNA HCT 300-25 MG TABLET 1 TABLET ORALLY ONCE A DAY TAKING TIZANIDINE HCL 2 MG TABLET 1 TABLET ORALLY THREE TIMES A DAY FOR MUSCLE SPASMS, NOTES: NONE LATELY TAKING SPIRONOLACTONE 25 MG TABLET 1 TABLET ORALLY TWICE A DAY, NOTES: NONE LATELY TAKING CLONIDINE HCL 0.2 MG TABLET 1 TABLET ORALLY TID TAKING CARISOPRODOL 350 MG TABLET 1 TABLET NEEDED ORALLY DAILY PRN SPASM MDD=1 TAKING OXYCODONE HCL 5 MG TABLET 1 TABLET NEEDED ORALLY FOR PAIN EVERY 12 HRS MDD2 TAKING TRAMADOL HCL 50 MG TABLET 1 TABLET NEEDED ORALLY EVERY 6 HRS PRN PAIN MDD=4 NOT-TAKING MOBIC 15 MG TABLET 1 TABLET ORALLY ONCE A DAY NOT-TAKING CLONIDINE 0.1 MG/24HR PATCH WEEKLY 1 PATCH TO SKIN TRANSDERMAL NOT-TAKING HYDROCODONE-ACETAMINOPHEN 5-300 MG TABLET 1 TABLET NEEDED ORALLY FOR PAIN EVERY 12 HRS MDD2, NOTES: NONE LATELY NOT-TAKING LOSARTAN POTASSIUM 100 MG TABLET 1 TABLET ORALLY ONCE A DAY NOT-TAKING PYRIDIUM 200 MG TABLET 1 TABLET AFTER MEALS ORALLY THREE TIMES A DAY NOT-TAKING GABAPENTIN 100 MG CAPSULE 1 CAPSULE ORALLY FOR PAIN THREE TIMES A DAY NOT-TAKING NORCO 10-325 MG TABLET 1 TABLET NEEDED ORALLY EVERY 6 HRS PRN SEVERE PAIN MDD=2 NOT-TAKING VESICARE 10 MG TABLET 1 TABLET ORALLY ONCE A DAY NOT-TAKING PREDNISONE 10 MG TABLET 1 TABLET ORALLY TAKE 4 TAB X 3 DAY, 3 TAB X 3 DAY, 2 TABX 3 DAY 1 TAB X 3 DAYS MEDICATION LIST REVIEWED AND RECONCILED WITH THE PATIENT PAST MEDICAL HISTORY HEMATURIA KIDNEY STONES CHRONIC BACK PAIN - WITH DORSAL STIMULATOR IMPLANT, REMOVED 2016 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 1 SON(S) , 1 DAUGHTER(S) - HEALTHY. DAD , CORONARY ARTERY DISEASE, MOM WITH BREAST AND UTERINE CANCERDAUGHTER WITH LUPUS AND DEGENERATIVE BONE DISEASE. SOCIAL HISTORY GENERAL: TOBACCO USE ARE YOU A: NONSMOKER. PAIN CLINIC PFS, CLERGY, PUBLIC HEALTH REFERRALS PFS REFERRAL NEEDED?NO CLERGY REFERRAL NEEDED?NO PUBLIC HEALTH REFERRAL NEEDED?NO WAS THE PROVIDER NOTIFIED OF ANY PERTINENT INFO?YES HAS THE PATIENT BEEN EDUCATED REGARDING HIS/HER PLAN OF CARE?YES HAS THE PATIENT BEEN EDUCATED REGARDING PAIN, THE RISK FOR PAIN, THE IMPORTANCE OF EFFECTIVE PAIN MANAGEMENT, AND THE PAIN ASSESSMENT PROCESS?YES LATEX QUESTIONNAIRE LATEX ALLERGY : HAVE YOU EVER DEVELOPED ANY TYPE OF REACTION AFTER HANDLING LATEX PRODUCTS SUCH RUBBER GLOVES, CONDOMS, DIAPHRAGMS, BALLOONS, SOCKS, OR UNDERWEAR?NO LATEX ALLERGY : HAVE YOU EVER DEVELOPED ANY TYPE OF REACTION DURING OR AFTER DENTAL APPOINTMENT, VAGINAL/RECTAL EXAMINATION, SURGICAL PROCEDURE, OR ANY OTHER EXPOSURE?NO DATE ASKED : 12/18/2018 LATEX RISK : HAVE YOU EVER HAD ANY DIFFICULTY BREATHING OR HIVES AFTER EATING OR HANDLING ANY FRUITS, OR VEGETABLES; SUCH KIWI, BANANAS, STONE FRUITS, OR CHESTNUTSNO LATEX RISK : DO YOU HAVE A PREVIOUS PERSONAL HISTORY OF MORE THAN NINE SURGERIES, SPINA BIFIDA, OR REPEATED CATHERIZATIONS? NO LATEX RISK : ARE YOU FREQUENTLY EXPOSED TO LATEX PRODUCTS IN YOUR OCCUPATION?NO ADVANCE DIRECTIVE ADVANCE DIRECTIVE DISCUSSED WITH PATIENT:YES DECLINED INFORMATION OR ASSISTANCE AT THIS TIME 09/27/2019 CONFUCIANIST [id number] SABIANISM LANGUAGE LANGUAGES SPOKEN:TURKMEN NEW PATIENT PAIN DIARY TODAY'S VISITNOTES FROM 0-10, WHAT LEVEL IS YOUR PAIN TODAY?7 ALCOHOL SCREENING DID YOU HAVE A DRINK CONTAINING ALCOHOL IN THE PAST YEAR?YES HOW OFTEN DID YOU HAVE SIX OR MORE DRINKS ON ONE OCCASION IN THE PAST YEAR?NEVER (0 POINTS) HOW MANY DRINKS DID YOU HAVE ON A TYPICAL DAY WHEN YOU WERE DRINKING IN THE PAST YEAR?1 OR 2 (0 POINTS) HOW OFTEN DID YOU HAVE A DRINK CONTAINING ALCOHOL IN THE PAST YEAR?MONTHLY OR LESS (1 POINT) POINTS1 INTERPRETATIONNEGATIVE RECREATIONAL DRUG USE DRUG USE?NO LEARNING BARRIERS / SPECIAL NEEDS CHANGE FROM LAST VISIT?NO BARRIERS TO LEARNING?NO HEARING IMPAIRED?NO VISION IMPAIRED?YES COGNITIVELY IMPAIRED?NO :CORRECTIVE LENSES READINESS TO LEARN?YES LEARNING PREFERENCES?NO LEARNING CAPABILITIES PRESENT?YES EMOTIONAL BARRIERS?NO SPECIAL DEVICES?NO PULMONOLOGIST INTENSIVIST NEEDED?NO HOSPITALIZATION/MAJOR DIAGNOSTIC PROCEDURE SURGERIES REVIEW OF SYSTEMS REVIEWED BY: PROVIDER: TANG KHAN TAILOR HELPER-C . CONSTITUTIONAL: ANY CHANGE IN YOUR MEDICAL CONDITION? NO . CHILLS NO . FEVER NO . INFECTION: DO YOU HAVE NEW INFECTIONS? NO . DO YOU HAVE HISTORY OF MRSA? NO . MUSCULOSKELETAL: ANY NEW PATTERNS OF PAIN OR NUMBNESS? YES, PAIN HAS INCREASED . GASTROENTEROLOGY: ANY NEW CHANGE IN BOWEL CONTROL? NO . GENITOURINARY: ANY NEW CHANGE IN BLADDER CONTROL? NO . IS THERE A CHANCE YOU COULD BE ? NO . HEMATOLOGY/LYMPH: DO YOU TAKE ANY BLOOD THINNERS? (FOR EXAMPLE- COUMADIN, PLAVIX, AGGRENOX, PLATEL, PRADAXA, OR XARELTO) NO . WHEN WAS YOUR LAST DOSE? DATE: TIME: . NEUROLOGY: HAVE YOU FALLEN IN THE PAST 12 MONTHS? NO . ANY NEW EXTREMITY NUMBNESS OR WEAKNESS? NO . CARDIOLOGY: DO YOU HAVE A PACEMAKER OR DEFIBRILLATOR? NO . RESPIRATORY: HAVE YOU BEEN SICK IN THE PAST WEEK? NO . FEVER NO . FLU LIKE SYMPTOMS? NO . COUGH NO . INTEGUMENTARY: DO YOU HAVE ANY RASHES OR OPEN SORES? NO . ALLERGIC/IMMUNO: ARE YOU ALLERGIC TO IV DYE? NO . ANY NEW ALLERGIES? NO . PSYCHIATRIC: DO YOU HAVE THOUGHTS OF HURTING YOURSELF OR SOMEONE ELSE? NO . ARE YOU ABUSED, NEGLECTED, OR IN AN UNSAFE ENVIRONMENT? NO . ENDOCRINOLOGY: ARE YOU DIABETIC? NO . OTHER: DO YOU NEED ANY PRESCRIPTIONS? YES,REFILL FOR OXYCODONE, TRAMADOL, CARISOPRODOL . IF YES, PLEASE LIST: ____ . ANY NEW PROBLEMS WITH YOUR MEDICATIONS? NO . WHEN DID YOU LAST EAT? ____ . WHEN DID YOU LAST DRINK? ____ . WHAT DID YOU LAST DRINK? ____ . NAME OF PERSON DRIVING YOU HOME? ____ . DO YOU HAVE ANY OTHER QUESTIONS OR CONCERNS NO . ASSESSMENTS SPONDYLOSIS OF LUMBOSACRAL REGION WITHOUT MYELOPATHY OR RADICULOPATHY - M47.817 (PRIMARY) TREATMENT SPONDYLOSIS OF LUMBOSACRAL REGION WITHOUT MYELOPATHY OR RADICULOPATHY REFILL CARISOPRODOL TABLET, 350 MG, 1 TABLET NEEDED, ORALLY, DAILY PRN SPASM MDD=1, 30 DAY(S), 14, REFILLS 0 REFILL OXYCODONE HCL TABLET, 5 MG, 1 TABLET NEEDED, ORALLY FOR PAIN, EVERY 12 HRS MDD2, 30 DAYS, 55, REFILLS 0 REFILL TRAMADOL HCL TABLET, 50 MG, 1 TABLET NEEDED, ORALLY, EVERY 6 HRS PRN PAIN MDD=4, 30 DAY(S), 120, REFILLS 0 CLINICAL NOTES: 49-YEAR-OLD FEMALE IN FOR CHRONIC PAIN FOLLOW-UP. GIVEN PRESENTING SYMPTOMS AND THE FACT THAT WE ARE AWAITING RESULTS FROM PT RECOMMENDED FOLLOW-UP IN 2 MONTHS. PATIENT HAS EXPRESSED UNDERSTANDING OF AND WAS IN AGREEMENT WITH TREATMENT PLAN. GIVEN TIME TO ASK QUESTIONS AND EXPRESS CONCERNS., ISTOP REGISTRY REVIEWED AND DEMONSTRATES COMPLLIANCE. (REF # [id number] ) BRINGS IN MEDICATIONS WHICH IS APPROPRIATE FOR WHAT WAS DISPENSED. RECENT URINE TOXICOLOGY REVIEWED. NO UNAUTHORIZED MEDICATIONS. NO ILLICIT SUBSTANCES AND PRESCRIBED MEDICATIONS WERE PRESENT. THIS VISIT TO BE BILLED BASED ON TIME SPENT WITH PATIENT. DISPOSITION & COMMUNICATION FOLLOW UP 2 MONTHS (REASON: BACK PAIN) ELECTRONICALLY SIGNED BY TAMANNA HOOPER ON 11/26/2019 AT 01:24 PM EDT DISCLAIMER : THIS IS A VISIT SUMMARY EXTRACTED FROM THE [employer] CHART. IT IS NOT A COPY OF THE [employer] PROGRESS NOTE. [facility]
== END ==
LOC: M PAIN 11:45
PROVIDERS: ATTEND Family Medicine
DX: M47.817 Spondylosis without myelopathy or radiculopathy, lumbosacral region (principal); Z79.891 Long term (current) use of opiate analgesic; Z79.899 Other long term (current) drug therapy; Z88.1 Allergy status to other antibiotic agents; Z91.048 Other nonmedicinal substance allergy status

== ENCOUNTER → 2020-01-24 | Outpatient (CLI) | payer OTHER ==
--- NOTE | 2020-01-28 05:45 | ECWPNPC ---
PATIENT NAME: RITU TURCIOS : 1970 GENDER: FEMALE VISIT DATE: 01/24/2020 DISCHARGE DATE: 01/24/20 1201 VISIT LOCKED DATE TIME: PHYSICIAN: LIDIA KHAN RESOURCE: LIDIA KHAN REASON FOR APPOINTMENT 1. 2 MONTHS, BACK PAIN; [phone] PAT DONE HISTORY OF PRESENT ILLNESS GENERAL: - 49-YEAR-OLD FEMALE IN FOR CHRONIC PAIN FOLLOW-UP. SHE RATES HER PAIN CURRENTLY AT AN 8 OUT OF 10 AND DESCRIBES IT A HARSH PAIN. SHE ADMITS TO INCREASED PAIN RECENTLY FURTHER STATING THAT IT FEELS LIKE SOMETHING CRUSHING HER SPINE. FALL RISK SCREENING: SCREENING :NO FALLS REPORTED IN THE LAST YEAR PAIN SCREENING: PATIENT HAS A COMPLAINT OF ACUTE OR CHRONIC PAIN :YES LOCATION OF PAIN:MID BACK, LOW BACK INTENSITY OF PAIN (SCALE OF 1 TO 10):8 WHAT DOES YOUR PAIN FEEL LIKE:CONTINOUS, SHARP, THROBBING DURATION:MAINLY DURING THE NIGHT, MAINLY DURING THE DAY PAIN IS INCREASED BY:ACTIVITIES PAIN IS DECREASED BY:SITTING, OTHERS LAYING DOWN NURSING NOTE: -. PAIN CENTER INTAKE QUESTIONS: DO YOU HAVE A HISTORY OF MRSA? :NO DO YOU TAKE A BLOOD THINNERS? :NO DO YOU HAVE ANY BLEEDING DISORDERS? :NO ANY NEW NUMBNESS OR WEAKNESS IN YOUR LEGS OR ARMS? :NO ANY PACEMAKER,DEFIBRILLATOR, OR DORSAL COLUMN STIMULATOR? :NO DO YOU HAVE ANY RASHES OR OPEN SORES? :NO ARE YOU ALLERGIC TO IV DYE? :NO ARE YOU DIABETIC? :NO ANY NEW PROBLEMS WITH YOUR MEDICATIONS? :YES PT STATES THAT CURRENT DOSE OF OXYCODONE IS NOT WORKING HAVE YOU RECEIVED A VACCINE IN THE PAST 30 DAYS? :NO DO YOU PLAN TO RECEIVE A VACCINE IN THE NEXT 21 DAYS? :NO DO YOU NEED ANY PRESCRIPTION? :NO DO YOU TAKE ANY IMMUNOSUPPRESSIVE MEDICATIONS? :NO CURRENT MEDICATIONS TAKING METOPROLOL SUCCINATE ER 100 MG TABLET EXTENDED RELEASE 24 HOUR 1 TABLET ORALLY BID TAKING HYDRALAZINE HCL 50 MG TABLET TABLET WITH FOOD ORALLY THREE TIMES A DAY TAKING TEKTURNA HCT 300-25 MG TABLET 1 TABLET ORALLY ONCE A DAY TAKING TIZANIDINE HCL 2 MG TABLET 1 TABLET ORALLY THREE TIMES A DAY FOR MUSCLE SPASMS, NOTES: NONE LATELY TAKING SPIRONOLACTONE 25 MG TABLET 1 TABLET ORALLY TWICE A DAY, NOTES: NONE LATELY TAKING CLONIDINE HCL 0.2 MG TABLET 1 TABLET ORALLY TID TAKING TRAMADOL HCL 50 MG TABLET 1 TABLET NEEDED ORALLY EVERY 6 HRS PRN PAIN MDD=4 TAKING OXYCODONE HCL 5 MG TABLET 1 TABLET NEEDED ORALLY FOR PAIN EVERY 12 HRS MDD2 NOT-TAKING CARISOPRODOL 350 MG TABLET 1 TABLET NEEDED ORALLY DAILY PRN SPASM MDD=1 NOT-TAKING MOBIC 15 MG TABLET 1 TABLET ORALLY ONCE A DAY NOT-TAKING CLONIDINE 0.1 MG/24HR PATCH WEEKLY 1 PATCH TO SKIN TRANSDERMAL NOT-TAKING HYDROCODONE-ACETAMINOPHEN 5-300 MG TABLET 1 TABLET NEEDED ORALLY FOR PAIN EVERY 12 HRS MDD2, NOTES: NONE LATELY NOT-TAKING LOSARTAN POTASSIUM 100 MG TABLET 1 TABLET ORALLY ONCE A DAY NOT-TAKING PYRIDIUM 200 MG TABLET 1 TABLET AFTER MEALS ORALLY THREE TIMES A DAY NOT-TAKING GABAPENTIN 100 MG CAPSULE 1 CAPSULE ORALLY FOR PAIN THREE TIMES A DAY NOT-TAKING NORCO 10-325 MG TABLET 1 TABLET NEEDED ORALLY EVERY 6 HRS PRN SEVERE PAIN MDD=2 NOT-TAKING VESICARE 10 MG TABLET 1 TABLET ORALLY ONCE A DAY NOT-TAKING PREDNISONE 10 MG TABLET 1 TABLET ORALLY TAKE 4 TAB X 3 DAY, 3 TAB X 3 DAY, 2 TABX 3 DAY 1 TAB X 3 DAYS MEDICATION LIST REVIEWED AND RECONCILED WITH THE PATIENT PAST MEDICAL HISTORY HEMATURIA KIDNEY STONES CHRONIC BACK PAIN - WITH DORSAL STIMULATOR IMPLANT, REMOVED 2016 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 1 SON(S) , 1 DAUGHTER(S) - HEALTHY. DAD , CORONARY ARTERY DISEASE, MOM WITH BREAST AND UTERINE CANCERDAUGHTER WITH LUPUS AND DEGENERATIVE BONE DISEASE. SOCIAL HISTORY GENERAL: TOBACCO USE ARE YOU A: NONSMOKER. LATEX QUESTIONNAIRE LATEX ALLERGY : HAVE YOU EVER DEVELOPED ANY TYPE OF REACTION AFTER HANDLING LATEX PRODUCTS SUCH RUBBER GLOVES, CONDOMS, DIAPHRAGMS, BALLOONS, SOCKS, OR UNDERWEAR?NO LATEX ALLERGY : HAVE YOU EVER DEVELOPED ANY TYPE OF REACTION DURING OR AFTER DENTAL APPOINTMENT, VAGINAL/RECTAL EXAMINATION, SURGICAL PROCEDURE, OR ANY OTHER EXPOSURE?NO LATEX RISK : HAVE YOU EVER HAD ANY DIFFICULTY BREATHING OR HIVES AFTER EATING OR HANDLING ANY FRUITS, OR VEGETABLES; SUCH KIWI, BANANAS, STONE FRUITS, OR CHESTNUTSNO LATEX RISK : DO YOU HAVE A PREVIOUS PERSONAL HISTORY OF MORE THAN NINE SURGERIES, SPINA BIFIDA, OR REPEATED CATHERIZATIONS? NO LATEX RISK : ARE YOU FREQUENTLY EXPOSED TO LATEX PRODUCTS IN YOUR OCCUPATION?NO DATE ASKED : 01/23/2020 ALCOHOL SCREENING DID YOU HAVE A DRINK CONTAINING ALCOHOL IN THE PAST YEAR?YES HOW OFTEN DID YOU HAVE SIX OR MORE DRINKS ON ONE OCCASION IN THE PAST YEAR?NEVER (0 POINTS) HOW MANY DRINKS DID YOU HAVE ON A TYPICAL DAY WHEN YOU WERE DRINKING IN THE PAST YEAR?1 OR 2 (0 POINTS) HOW OFTEN DID YOU HAVE A DRINK CONTAINING ALCOHOL IN THE PAST YEAR?MONTHLY OR LESS (1 POINT) POINTS1 INTERPRETATIONNEGATIVE RECREATIONAL DRUG USE DRUG USE?NO HINDUISM [id number] UATSDIN LANGUAGE LANGUAGES SPOKEN:SETSWANA LEARNING BARRIERS / SPECIAL NEEDS CHANGE FROM LAST VISIT?NO BARRIERS TO LEARNING?NO HEARING IMPAIRED?NO VISION IMPAIRED?YES COGNITIVELY IMPAIRED?NO :CORRECTIVE LENSES READINESS TO LEARN?YES LEARNING PREFERENCES?NO LEARNING CAPABILITIES PRESENT?YES EMOTIONAL BARRIERS?NO SPECIAL DEVICES?NO DRIER TENDER NAPHTHALENE NEEDED?NO NEW PATIENT PAIN DIARY TODAY'S VISITNOTES FROM 0-10, WHAT LEVEL IS YOUR PAIN TODAY?7 PAIN CLINIC PFS, CLERGY, PUBLIC HEALTH REFERRALS PFS REFERRAL NEEDED?NO CLERGY REFERRAL NEEDED?NO PUBLIC HEALTH REFERRAL NEEDED?NO WAS THE PROVIDER NOTIFIED OF ANY PERTINENT INFO?YES HAS THE PATIENT BEEN EDUCATED REGARDING HIS/HER PLAN OF CARE?YES HAS THE PATIENT BEEN EDUCATED REGARDING PAIN, THE RISK FOR PAIN, THE IMPORTANCE OF EFFECTIVE PAIN MANAGEMENT, AND THE PAIN ASSESSMENT PROCESS?YES ADVANCE DIRECTIVE ADVANCE DIRECTIVE DISCUSSED WITH PATIENT:YES DECLINED INFORMATION OR ASSISTANCE AT THIS TIME 09/27/2019 HOSPITALIZATION/MAJOR DIAGNOSTIC PROCEDURE SURGERIES REVIEW OF SYSTEMS CONSTITUTIONAL: ANY RECENT FEVER OR ILLNESS NO . CHILLS NO . GASTROENTEROLOGY: BOWEL INCONTINENCE NO . ANY NEW CHANGE IN BOWEL CONTROL? NO . ABDOMINAL PAIN NO . CONSTIPATION NO . GENITOURINARY: ANY NEW CHANGE IN BLADDER CONTROL? NO . IS THERE A CHANCE YOU COULD BE ? NO . URINARY INCONTINENCE NO . CARDIOLOGY: CHEST PRESSURE NO . CHEST PAIN NO . RESPIRATORY: COUGH NO . SHORTNESS OF BREATH NO . EXAMINATION GENERAL EXAMINATION: GENERALNO ACUTE DISTRESS, WELL NOURISHED AND HYDRATED. PSYCHAPPROPRIATE MOOD AND AFFECT , ORIENTED X 3. 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 WITH [id number] CLINICAL NOTES: 49-YEAR-OLD FEMALE IN FOR CHRONIC PAIN FOLLOW-UP. GIVEN PRESENTING SYMPTOMS RECOMMEND STARTING DICLOFENAC 50 MG TWICE A DAY, AND GETTING AN UPDATED MRI GIVEN PATIENT'S INCREASED PAIN. PATIENT WAS ENCOURAGED NOT TO TAKE OTHER NSAIDS WHILE ON THE DICLOFENAC. PATIENT HAS EXPRESSED UNDERSTANDING OF AND WAS IN AGREEMENT WITH TREATMENT PLAN. GIVEN TIME TO ASK QUESTIONS AND EXPRESS CONCERNS. , ISTOP REGISTRY REVIEWED AND DEMONSTRATES COMPLLIANCE. (REF # [id number] ) BRINGS IN MEDICATIONS WHICH IS APPROPRIATE FOR WHAT WAS DISPENSED. RECENT URINE TOXICOLOGY REVIEWED. NO UNAUTHORIZED MEDICATIONS. NO ILLICIT SUBSTANCES AND PRESCRIBED MEDICATIONS WERE PRESENT. TELEHEALTH VISIT PERFORMED VIA ZOOM. TIME SPENT WITH PATIENT 10 MINUTES. SPONDYLOSIS OF LUMBAR REGION WITHOUT MYELOPATHY OR RADICULOPATHY [facility] MRI SPINE, L.S. WITH [id number] DISPOSITION & COMMUNICATION FOLLOW UP POST DIAGNOSTIC IMAGING (REASON: LUMBAR MRI) ELECTRONICALLY SIGNED BY TAMANNA HOOPER ON 01/27/2020 AT 08:33 AM EDT DISCLAIMER : THIS IS A VISIT SUMMARY EXTRACTED FROM THE [employer] CHART. IT IS NOT A COPY OF THE [employer] PROGRESS NOTE. CHELSEA
== END ==
LOC: M PAIN 11:15
PROVIDERS: ATTEND Family Medicine
DX: M96.1 Postlaminectomy syndrome, not elsewhere classified (principal); M47.816 Spondylosis without myelopathy or radiculopathy, lumbar region

== ENCOUNTER → 2020-02-11 | Outpatient (CLI) | payer OTHER ==
--- NOTE | 2020-02-13 02:06 | ECWPNPC ---
PATIENT NAME: RITU TURCIOS : 1970 GENDER: FEMALE VISIT DATE: 02/11/2020 DISCHARGE DATE: 02/11/20 1559 VISIT LOCKED DATE TIME: PHYSICIAN: LIDIA KHAN RESOURCE: LIDIA KHAN REASON FOR APPOINTMENT 1. MRI REVIEW/DISCUSS MEDICATION MRI SCANNED IN UNDER PT DOCS HISTORY OF PRESENT ILLNESS GENERAL: - 49-YEAR-OLD FEMALE IN FOR CHRONIC PAIN FOLLOW-UP. SHE RATES HER PAIN CURRENTLY AT A 7 OUT OF 10 AND DESCRIBES IT SHARP. PATIENT HAD AN MRI RECENTLY WHICH WILL BE REVIEWED WITH PATIENT TODAY. PATIENT FEELS THE MEDICATIONS ARE HELPFUL AND DENIES MED SIDE EFFECTS AT THIS TIME. FALL RISK SCREENING: SCREENING :NO FALLS REPORTED IN THE LAST YEAR PAIN SCREENING: PATIENT HAS A COMPLAINT OF ACUTE OR CHRONIC PAIN :YES LOCATION OF PAIN:MID BACK, LOW BACK INTENSITY OF PAIN (SCALE OF 1 TO 10):7 WHAT DOES YOUR PAIN FEEL LIKE:SHARP DURATION:CONTINOUS, CONSTANT, ALL DAY PAIN IS INCREASED BY:ACTIVITIES, PROLONGED STANDING PAIN IS DECREASED BY:USE OF PAIN MEDICATIONS LAYING DOWN PAIN HAS INTERFERED WITH THE FOLLOWING:MOOD, HOUSEWORK, RELATIONSHIP WITH OTHERS, ENJOYMENT OF LIFE PLAN/GOALS/TREATMENT/INTERVENTION/FOLLOW UP:SEE PLAN NURSING NOTE: -. PAIN CENTER INTAKE QUESTIONS: DO YOU HAVE A HISTORY OF MRSA? :NO DO YOU TAKE A BLOOD THINNERS? :NO DO YOU HAVE ANY BLEEDING DISORDERS? :NO ANY NEW NUMBNESS OR WEAKNESS IN YOUR LEGS OR ARMS? :NO ANY PACEMAKER,DEFIBRILLATOR, OR DORSAL COLUMN STIMULATOR? :NO DO YOU HAVE ANY RASHES OR OPEN SORES? :NO ARE YOU ALLERGIC TO IV DYE? :NO ARE YOU DIABETIC? :NO ANY NEW PROBLEMS WITH YOUR MEDICATIONS? :NO HAVE YOU RECEIVED A VACCINE IN THE PAST 30 DAYS? :NO DO YOU PLAN TO RECEIVE A VACCINE IN THE NEXT 21 DAYS? :NO DO YOU NEED ANY PRESCRIPTION? :YES TRAMADOL DO YOU TAKE ANY IMMUNOSUPPRESSIVE MEDICATIONS? :NO IS THERE A CHANCE YOU COULD BE ? :NO ARE YOU BREAST FEEDING? :NO CURRENT MEDICATIONS TAKING METOPROLOL SUCCINATE ER 100 MG TABLET EXTENDED RELEASE 24 HOUR 1 TABLET ORALLY BID TAKING HYDRALAZINE HCL 50 MG TABLET TABLET WITH FOOD ORALLY THREE TIMES A DAY TAKING TEKTURNA HCT 300-25 MG TABLET 1 TABLET ORALLY ONCE A DAY TAKING TIZANIDINE HCL 2 MG TABLET 1 TABLET ORALLY THREE TIMES A DAY FOR MUSCLE SPASMS, NOTES: NONE LATELY TAKING SPIRONOLACTONE 25 MG TABLET 1 TABLET ORALLY TWICE A DAY, NOTES: NONE LATELY TAKING CLONIDINE HCL 0.2 MG TABLET 1 TABLET ORALLY TID TAKING TRAMADOL HCL 50 MG TABLET 1 TABLET NEEDED ORALLY EVERY 6 HRS PRN PAIN MDD=4 TAKING OXYCODONE HCL 5 MG TABLET 1 TABLET NEEDED ORALLY FOR PAIN EVERY 12 HRS MDD2 TAKING DICLOFENAC SODIUM 50 MG TABLET DELAYED RELEASE 1 TABLET ORALLY TWICE A DAY NOT-TAKING CARISOPRODOL 350 MG TABLET 1 TABLET NEEDED ORALLY DAILY PRN SPASM MDD=1 NOT-TAKING MOBIC 15 MG TABLET 1 TABLET ORALLY ONCE A DAY NOT-TAKING CLONIDINE 0.1 MG/24HR PATCH WEEKLY 1 PATCH TO SKIN TRANSDERMAL NOT-TAKING HYDROCODONE-ACETAMINOPHEN 5-300 MG TABLET 1 TABLET NEEDED ORALLY FOR PAIN EVERY 12 HRS MDD2, NOTES: NONE LATELY NOT-TAKING LOSARTAN POTASSIUM 100 MG TABLET 1 TABLET ORALLY ONCE A DAY NOT-TAKING PYRIDIUM 200 MG TABLET 1 TABLET AFTER MEALS ORALLY THREE TIMES A DAY NOT-TAKING GABAPENTIN 100 MG CAPSULE 1 CAPSULE ORALLY FOR PAIN THREE TIMES A DAY NOT-TAKING NORCO 10-325 MG TABLET 1 TABLET NEEDED ORALLY EVERY 6 HRS PRN SEVERE PAIN MDD=2 NOT-TAKING VESICARE 10 MG TABLET 1 TABLET ORALLY ONCE A DAY NOT-TAKING PREDNISONE 10 MG TABLET 1 TABLET ORALLY TAKE 4 TAB X 3 DAY, 3 TAB X 3 DAY, 2 TABX 3 DAY 1 TAB X 3 DAYS MEDICATION LIST REVIEWED AND RECONCILED WITH THE PATIENT PAST MEDICAL HISTORY HEMATURIA KIDNEY STONES CHRONIC BACK PAIN - WITH DORSAL STIMULATOR IMPLANT, REMOVED 2016 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 1 SON(S) , 1 DAUGHTER(S) - HEALTHY. DAD , CORONARY ARTERY DISEASE, MOM WITH BREAST AND UTERINE CANCERDAUGHTER WITH LUPUS AND DEGENERATIVE BONE DISEASE. SOCIAL HISTORY GENERAL: TOBACCO USE ARE YOU A: NONSMOKER. LATEX QUESTIONNAIRE LATEX ALLERGY : HAVE YOU EVER DEVELOPED ANY TYPE OF REACTION AFTER HANDLING LATEX PRODUCTS SUCH RUBBER GLOVES, CONDOMS, DIAPHRAGMS, BALLOONS, SOCKS, OR UNDERWEAR?NO LATEX ALLERGY : HAVE YOU EVER DEVELOPED ANY TYPE OF REACTION DURING OR AFTER DENTAL APPOINTMENT, VAGINAL/RECTAL EXAMINATION, SURGICAL PROCEDURE, OR ANY OTHER EXPOSURE?NO LATEX RISK : HAVE YOU EVER HAD ANY DIFFICULTY BREATHING OR HIVES AFTER EATING OR HANDLING ANY FRUITS, OR VEGETABLES; SUCH KIWI, BANANAS, STONE FRUITS, OR CHESTNUTSNO LATEX RISK : DO YOU HAVE A PREVIOUS PERSONAL HISTORY OF MORE THAN NINE SURGERIES, SPINA BIFIDA, OR REPEATED CATHERIZATIONS? NO LATEX RISK : ARE YOU FREQUENTLY EXPOSED TO LATEX PRODUCTS IN YOUR OCCUPATION?NO DATE ASKED : 02/11/2020 ALCOHOL SCREENING DID YOU HAVE A DRINK CONTAINING ALCOHOL IN THE PAST YEAR?YES HOW OFTEN DID YOU HAVE SIX OR MORE DRINKS ON ONE OCCASION IN THE PAST YEAR?NEVER (0 POINTS) HOW MANY DRINKS DID YOU HAVE ON A TYPICAL DAY WHEN YOU WERE DRINKING IN THE PAST YEAR?1 OR 2 (0 POINTS) HOW OFTEN DID YOU HAVE A DRINK CONTAINING ALCOHOL IN THE PAST YEAR?MONTHLY OR LESS (1 POINT) POINTS1 INTERPRETATIONNEGATIVE RECREATIONAL DRUG USE DRUG USE?NO GNOSTICIST [id number] RASTAFARI LANGUAGE LANGUAGES SPOKEN:CHILEAN LEARNING BARRIERS / SPECIAL NEEDS CHANGE FROM LAST VISIT?NO BARRIERS TO LEARNING?NO HEARING IMPAIRED?NO VISION IMPAIRED?YES COGNITIVELY IMPAIRED?NO :CORRECTIVE LENSES READINESS TO LEARN?YES LEARNING PREFERENCES?NO LEARNING CAPABILITIES PRESENT?YES EMOTIONAL BARRIERS?NO SPECIAL DEVICES?NO SOURCING INTERN NEEDED?NO NEW PATIENT PAIN DIARY TODAY'S VISITNOTES FROM 0-10, WHAT LEVEL IS YOUR PAIN TODAY?7 PAIN CLINIC PFS, CLERGY, PUBLIC HEALTH REFERRALS PFS REFERRAL NEEDED?NO CLERGY REFERRAL NEEDED?NO PUBLIC HEALTH REFERRAL NEEDED?NO WAS THE PROVIDER NOTIFIED OF ANY PERTINENT INFO?YES HAS THE PATIENT BEEN EDUCATED REGARDING HIS/HER PLAN OF CARE?YES HAS THE PATIENT BEEN EDUCATED REGARDING PAIN, THE RISK FOR PAIN, THE IMPORTANCE OF EFFECTIVE PAIN MANAGEMENT, AND THE PAIN ASSESSMENT PROCESS?YES ADVANCE DIRECTIVE ADVANCE DIRECTIVE DISCUSSED WITH PATIENT:YES DECLINED INFORMATION OR ASSISTANCE AT THIS TIME 09/27/2019 HOSPITALIZATION/MAJOR DIAGNOSTIC PROCEDURE SURGERIES REVIEW OF SYSTEMS CONSTITUTIONAL: ANY RECENT FEVER OR ILLNESS NO . CHILLS NO . GASTROENTEROLOGY: BOWEL INCONTINENCE NO . ANY NEW CHANGE IN BOWEL CONTROL? NO . ABDOMINAL PAIN NO . CONSTIPATION NO . GENITOURINARY: ANY NEW CHANGE IN BLADDER CONTROL? NO . URINARY INCONTINENCE NO . CARDIOLOGY: CHEST PRESSURE NO . CHEST PAIN NO . RESPIRATORY: COUGH NO . SHORTNESS OF BREATH NO . VITAL SIGNS WT 164.6 LBS, HT 5'1", BMI 31.10 INDEX, BP 199/88 MM HG, HR 90 /MIN, RR 18 /MIN, TEMP 99.2 F, OXYGEN SAT % 100%, SAFE IN ENV? (Y/N) YES, NA INITIALS AW [id number] CERTIFIED PHYSICIAN'S ASSISTANT. EXAMINATION GENERAL EXAMINATION: GENERALNO ACUTE DISTRESS, WELL NOURISHED AND HYDRATED. PSYCHAPPROPRIATE MOOD AND AFFECT . LUNGS:CLEAR TO AUSCULTATION BILATERALLY, NO WHEEZES, RHONCHI, RALES. HEART:NO MURMURS, REGULAR RATE AND RHYTHM. BACK:POINT TENDER ALONG LUMBAR SPINE, SURROUNDING SKIN SHOWS NO ERYTHEMA, ECCHYMOSIS, INCREASED WARMTH, AND/OR SKIN ERUPTIONS NOTED. POSITIVE MODIFIED SLR BILATERALLY . MUSCULOSKELETAL:EQUAL STRENGTH OF THE LOWER EXTREMITIES BILATERALLY . ASSESSMENTS INTERVERTEBRAL DISC DISORDERS WITH RADICULOPATHY, LUMBOSACRAL REGION - M51.17 (PRIMARY) TREATMENT INTERVERTEBRAL DISC DISORDERS WITH RADICULOPATHY, LUMBOSACRAL REGION REFILL TRAMADOL HCL TABLET, 50 MG, 1 TABLET NEEDED, ORALLY, EVERY 6 HRS PRN PAIN MDD=4, 30 DAY(S), 120, REFILLS 0 REFILL OXYCODONE HCL TABLET, 5 MG, 1 TABLET NEEDED, ORALLY FOR PAIN, EVERY 12 HRS MDD2, 30 DAYS, 55, REFILLS 0 STOP DICLOFENAC SODIUM TABLET DELAYED RELEASE, 50 MG, 1 TABLET, ORALLY, TWICE A DAY NOTES: CAUDAL EPIDURAL. CLINICAL NOTES: 49-YEAR-OLD FEMALE IN FOR CHRONIC PAIN FOLLOW-UP. GIVEN PRESENTING SYMPTOMS AND RESULTS OF PHYSICAL EXAMINATION RECOMMEND CAUDAL EPIDURAL WITH POSTPROCEDURAL FOLLOW-UP. PATIENT HAS EXPRESSED UNDERSTANDING OF AND WAS IN AGREEMENT WITH TREATMENT PLAN. GIVEN TIME TO ASK QUESTIONS AND EXPRESS CONCERNS. , ISTOP REGISTRY REVIEWED AND DEMONSTRATES COMPLLIANCE. (REF # [id number]) BRINGS IN MEDICATIONS WHICH IS APPROPRIATE FOR WHAT WAS DISPENSED. RECENT URINE TOXICOLOGY REVIEWED. NO UNAUTHORIZED MEDICATIONS. NO ILLICIT SUBSTANCES AND PRESCRIBED MEDICATIONS WERE PRESENT. PROCEDURE CODES FA211 ESTABILISHED PATIENT [facility] CHARGE DISPOSITION & COMMUNICATION FOLLOW UP POST PROCEDURAL FOLLOW-UP (REASON: CAUDAL EPIDURAL) ELECTRONICALLY SIGNED BY TAMANNA HOOPER ON 02/12/2020 AT 09:00 AM EDT DISCLAIMER : THIS IS A VISIT SUMMARY EXTRACTED FROM THE [employer] CHART. IT IS NOT A COPY OF THE [employer] PROGRESS NOTE. CHELSEA
== END ==
LOC: M PAIN 13:00
PROVIDERS: ATTEND Family Medicine
DX: M51.17 Intervertebral disc disorders with radiculopathy, lumbosacral region (principal)

== ENCOUNTER → 2020-05-02 | Outpatient (CLI) | payer OTHER | LOC: M LABSMTC 08:05 | PROVIDERS: ATTEND Anesthesiology | DX: Z11.59 Encounter for screening for other viral diseases (principal) | CPT/HCPCS: C9803; U0003 ==

== ENCOUNTER → 2020-05-07 | Outpatient (CLI) | payer OTHER ==
[~2020-05-07] MED LIST changes: +ISOVUE-M 300 61% 15ML VIAL As Ordered ONE; +LIDOCAINE 1% SDV 30ML VIAL As Ordered ONE; +diazePAM 5 MG TAB As Ordered ONE; +methylPREDNISolone SUSP 40MG/ML 1ML VIAL (DEPO MEDROL) As Ordered ONE; +oxyCODONE 5MG TAB As Ordered ONE
--- NOTE | 2020-05-25 10:50 | REP ---
C-ARM VIEWS OF SACRUM AND COCCYX: HISTORY: Pain. FINDINGS: 3 C-arm views of the sacrum and coccyx are performed during injection by Dr. Joseph. 19 seconds of fluoroscopy time utilized. MTDD
== END ==
LOC: M PAIN 08:19
PROVIDERS: ATTEND Anesthesiology
DX: M96.1 Postlaminectomy syndrome, not elsewhere classified (principal)

== ENCOUNTER → 2020-05-20 | Outpatient (CLI) | payer OTHER ==
[~2020-05-20] MED LIST changes: -ISOVUE-M 300 61% 15ML VIAL As Ordered ONE; -LIDOCAINE 1% SDV 30ML VIAL As Ordered ONE; -diazePAM 5 MG TAB As Ordered ONE; -methylPREDNISolone SUSP 40MG/ML 1ML VIAL (DEPO MEDROL) As Ordered ONE; -oxyCODONE 5MG TAB As Ordered ONE
== END ==
LOC: M PAIN 09:20
PROVIDERS: ATTEND Family Medicine
DX: M51.17 Intervertebral disc disorders with radiculopathy, lumbosacral region (principal)

== ENCOUNTER → 2020-06-17 | Outpatient (CLI) | payer OTHER ==
--- NOTE | 2020-06-18 09:37 | ECWPNPC ---
PATIENT NAME: RITU TURCIOS : 1970 GENDER: FEMALE VISIT DATE: 06/17/2020 DISCHARGE DATE: 06/17/20 0950 VISIT LOCKED DATE TIME: PHYSICIAN: LIDIA KHAN RESOURCE: LIDIA KHAN REASON FOR APPOINTMENT 1. BACK HISTORY OF PRESENT ILLNESS GENERAL: - 49 YEAR OLD FEMALE IN FOR CHRONIC PAIN FOLLOW UP. SHE FEELS HER MEDICATIONS ARE HELPFUL AND DENIES MED SIDE EFFECTS AT THIS TIME. AT LAST CLINIC VISIT HER TIZANIDINE WAS INCREASED AND SHE FEELS THIS WAS HELPFUL. SHE RATES HER PAIN AT A 6/10 CURRENTLY AND DESCRIBES IT SHARP AND CRUSHING. FALL RISK SCREENING: SCREENING :NO FALLS REPORTED IN THE LAST YEAR PAIN SCREENING: PATIENT HAS A COMPLAINT OF ACUTE OR CHRONIC PAIN :YES LOCATION OF PAIN:MID BACK, LOW BACK INTENSITY OF PAIN (SCALE OF 1 TO 10):6 WHAT DOES YOUR PAIN FEEL LIKE:SHARP, OTHER CRUSHING DURATION:CONSTANT PAIN PREVENTS PATIENT FROM BEING ABLE TO SLEEP AND REST. PAIN IS INCREASED BY:ACTIVITIES, PROLONGED STANDING PAIN IS DECREASED BY:USE OF PAIN MEDICATIONS, OTHERS LAYING ON HER SIDE HELPS TO REDUCE PAIN. NURSING NOTE: -. PAIN CENTER INTAKE QUESTIONS: DO YOU HAVE A HISTORY OF MRSA? :NO DO YOU TAKE A BLOOD THINNERS? :NO DO YOU HAVE ANY BLEEDING DISORDERS? :NO ANY NEW NUMBNESS OR WEAKNESS IN YOUR LEGS OR ARMS? :NO ANY PACEMAKER,DEFIBRILLATOR, OR DORSAL COLUMN STIMULATOR? :NO DO YOU HAVE ANY RASHES OR OPEN SORES? :NO ARE YOU ALLERGIC TO IV DYE? :NO ARE YOU DIABETIC? :NO ANY NEW PROBLEMS WITH YOUR MEDICATIONS? :NO HAVE YOU RECEIVED A VACCINE IN THE PAST 30 DAYS? :NO DO YOU PLAN TO RECEIVE A VACCINE IN THE NEXT 21 DAYS? :YES PATIENT INTENDS ON GETTING A FLU SHOT SOON. DO YOU NEED ANY PRESCRIPTION? :YES CRYSTAL HAS 10 DAYS LEFT OF TRAMADOL , AND NEEDS A REFILL OF OXYCODONE DO YOU TAKE ANY IMMUNOSUPPRESSIVE MEDICATIONS? :NO IS THERE A CHANCE YOU COULD BE ? :NO ARE YOU BREAST FEEDING? :NO CURRENT MEDICATIONS TAKING METOPROLOL SUCCINATE ER 100 MG TABLET EXTENDED RELEASE 24 HOUR 1 TABLET ORALLY BID TAKING HYDRALAZINE HCL 50 MG TABLET TABLET WITH FOOD ORALLY THREE TIMES A DAY TAKING TEKTURNA HCT 300-25 MG TABLET 1 TABLET ORALLY ONCE A DAY TAKING TIZANIDINE HCL 2 MG TABLET 1 TABLET ORALLY THREE TIMES A DAY FOR MUSCLE SPASMS, NOTES: NONE LATELY TAKING SPIRONOLACTONE 25 MG TABLET 1 TABLET ORALLY TWICE A DAY, NOTES: NONE LATELY TAKING CLONIDINE HCL 0.2 MG TABLET 1 TABLET ORALLY TID TAKING OXYCODONE HCL 5 MG TABLET 1 TABLET NEEDED ORALLY FOR PAIN EVERY 12 HRS MDD2 TAKING TRAMADOL HCL 50 MG TABLET 1 TABLET NEEDED ORALLY EVERY 6 HRS PRN PAIN MDD=4 NOT-TAKING CARISOPRODOL 350 MG TABLET 1 TABLET NEEDED ORALLY DAILY PRN SPASM MDD=1 NOT-TAKING MOBIC 15 MG TABLET 1 TABLET ORALLY ONCE A DAY NOT-TAKING CLONIDINE 0.1 MG/24HR PATCH WEEKLY 1 PATCH TO SKIN TRANSDERMAL NOT-TAKING HYDROCODONE-ACETAMINOPHEN 5-300 MG TABLET 1 TABLET NEEDED ORALLY FOR PAIN EVERY 12 HRS MDD2, NOTES: NONE LATELY NOT-TAKING LOSARTAN POTASSIUM 100 MG TABLET 1 TABLET ORALLY ONCE A DAY NOT-TAKING PYRIDIUM 200 MG TABLET 1 TABLET AFTER MEALS ORALLY THREE TIMES A DAY NOT-TAKING GABAPENTIN 100 MG CAPSULE 1 CAPSULE ORALLY FOR PAIN THREE TIMES A DAY NOT-TAKING NOR[place] 10-325 MG TABLET 1 TABLET NEEDED ORALLY EVERY 6 HRS PRN SEVERE PAIN MDD=2 NOT-TAKING VESICARE 10 MG TABLET 1 TABLET ORALLY ONCE A DAY NOT-TAKING PREDNISONE 10 MG TABLET 1 TABLET ORALLY TAKE 4 TAB X 3 DAY, 3 TAB X 3 DAY, 2 TABX 3 DAY 1 TAB X 3 DAYS MEDICATION LIST REVIEWED AND RECONCILED WITH THE PATIENT PAST MEDICAL HISTORY HEMATURIA KIDNEY STONES CHRONIC BACK PAIN - WITH DORSAL STIMULATOR IMPLANT, REMOVED 2016 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 1 SON(S) , 1 DAUGHTER(S) - HEALTHY. DAD , CORONARY ARTERY DISEASE, MOM WITH BREAST AND UTERINE CANCERDAUGHTER WITH LUPUS AND DEGENERATIVE BONE DISEASE. SOCIAL HISTORY GENERAL: TOBACCO USE ARE YOU A: NONSMOKER. LATEX QUESTIONNAIRE LATEX ALLERGY : HAVE YOU EVER DEVELOPED ANY TYPE OF REACTION AFTER HANDLING LATEX PRODUCTS SUCH RUBBER GLOVES, CONDOMS, DIAPHRAGMS, BALLOONS, SOCKS, OR UNDERWEAR?NO LATEX ALLERGY : HAVE YOU EVER DEVELOPED ANY TYPE OF REACTION DURING OR AFTER DENTAL APPOINTMENT, VAGINAL/RECTAL EXAMINATION, SURGICAL PROCEDURE, OR ANY OTHER EXPOSURE?NO LATEX RISK : HAVE YOU EVER HAD ANY DIFFICULTY BREATHING OR HIVES AFTER EATING OR HANDLING ANY FRUITS, OR VEGETABLES; SUCH KIWI, BANANAS, STONE FRUITS, OR CHESTNUTSNO LATEX RISK : DO YOU HAVE A PREVIOUS PERSONAL HISTORY OF MORE THAN NINE SURGERIES, SPINA BIFIDA, OR REPEATED CATHERIZATIONS? NO LATEX RISK : ARE YOU FREQUENTLY EXPOSED TO LATEX PRODUCTS IN YOUR OCCUPATION?NO DATE ASKED : 06/17/2020 ALCOHOL SCREENING DID YOU HAVE A DRINK CONTAINING ALCOHOL IN THE PAST YEAR?YES HOW OFTEN DID YOU HAVE SIX OR MORE DRINKS ON ONE OCCASION IN THE PAST YEAR?NEVER (0 POINTS) HOW MANY DRINKS DID YOU HAVE ON A TYPICAL DAY WHEN YOU WERE DRINKING IN THE PAST YEAR?1 OR 2 (0 POINTS) HOW OFTEN DID YOU HAVE A DRINK CONTAINING ALCOHOL IN THE PAST YEAR?MONTHLY OR LESS (1 POINT) POINTS1 INTERPRETATIONNEGATIVE RECREATIONAL DRUG USE DRUG USE?NO SAMARITAN [id number] ORTHODOXY LANGUAGE LANGUAGES SPOKEN:SLOVENIAN LEARNING BARRIERS / SPECIAL NEEDS CHANGE FROM LAST VISIT?NO BARRIERS TO LEARNING?NO HEARING IMPAIRED?NO VISION IMPAIRED?YES COGNITIVELY IMPAIRED?NO :CORRECTIVE LENSES READINESS TO LEARN?YES LEARNING PREFERENCES?NO LEARNING CAPABILITIES PRESENT?YES EMOTIONAL BARRIERS?NO SPECIAL DEVICES?NO ORACLE ADF CONSULTANT NEEDED?NO NEW PATIENT PAIN DIARY TODAY'S VISITNOTES FROM 0-10, WHAT LEVEL IS YOUR PAIN TODAY?7 PAIN CLINIC PFS, CLERGY, PUBLIC HEALTH REFERRALS PFS REFERRAL NEEDED?NO CLERGY REFERRAL NEEDED?NO PUBLIC HEALTH REFERRAL NEEDED?NO WAS THE PROVIDER NOTIFIED OF ANY PERTINENT INFO?YES HAS THE PATIENT BEEN EDUCATED REGARDING HIS/HER PLAN OF CARE?YES HAS THE PATIENT BEEN EDUCATED REGARDING PAIN, THE RISK FOR PAIN, THE IMPORTANCE OF EFFECTIVE PAIN MANAGEMENT, AND THE PAIN ASSESSMENT PROCESS?YES ADVANCE DIRECTIVE ADVANCE DIRECTIVE DISCUSSED WITH PATIENT:YES DECLINED INFORMATION OR ASSISTANCE AT THIS TIME 09/27/2019 HOSPITALIZATION/MAJOR DIAGNOSTIC PROCEDURE SURGERIES REVIEW OF SYSTEMS CONSTITUTIONAL: ANY RECENT FEVER NO . CHILLS NO . WEIGHT CHANGE OF UNKNOWN REASONS NO . GASTROENTEROLOGY: NEW UNEXPLAINABLE CHANGES IN BOWEL CONTROL NO . CONSTIPATION NO . GENITOURINARY: ANY NEW CHANGE IN BLADDER CONTROL? NO . NEUROLOGY: NEW ONSET DIZZINESS OR NEUROLOGICAL CHANGES NOT MENTIONED NO . NEW NUMBNESS OR PAIN PATTERNS NOT MENTIONED AND PERTINENT TO TODAY'S VISIT NO . CARDIOLOGY: NEW CHEST PRESSURE NO . NEW CHEST PAIN NO . RESPIRATORY: UNEXPLAINABLE COUGH NO . NEW SHORTNESS OF BREATH NO . VITAL SIGNS WT 165.6 LBS, HT 5'1", BMI 31.29 INDEX, BP 195/88 MM HG, REPEAT BP 180/90 MM HG, HR 99 /MIN, RR 18 /MIN, TEMP 97.3 F, OXYGEN SAT % 99%, SAFE IN ENV? (Y/N) YES, NA INITIALS AW 0914, REVIEWED BY: DM. EXAMINATION GENERAL EXAMINATION: GENERALNO ACUTE DISTRESS, WELL NOURISHED AND HYDRATED. PSYCHAPPROPRIATE MOOD AND AFFECT . LUNGS:CLEAR TO AUSCULTATION BILATERALLY, NO WHEEZES, RHONCHI, RALES. HEART:NO MURMURS, REGULAR RATE AND RHYTHM. ASSESSMENTS SPONDYLOSIS OF LUMBOSACRAL REGION WITHOUT MYELOPATHY OR RADICULOPATHY - M47.817 (PRIMARY) TREATMENT SPONDYLOSIS OF LUMBOSACRAL REGION WITHOUT MYELOPATHY OR RADICULOPATHY CLINICAL NOTES: 49-YEAR-OLD FEMALE IN FOR CHRONIC PAIN FOLLOW-UP. GIVEN PRESENTING SYMPTOMS RECOMMENDED CONTINUATION OF CURRENT MEDICATION REGIMEN WITH FOLLOW-UP IN 3 MONTHS. BLOOD PRESSURE DISCUSSED WITH PATIENT AND SHE ADMITS THAT IT IS ELEVATED RELATED TO HER KIDNEY ISSUES AND SHE IS SEEING A PROVIDER REGARDING THIS. PATIENT HAS EXPRESSED UNDERSTANDING OF AND WAS IN AGREEMENT WITH TREATMENT PLAN. GIVEN TIME TO ASK QUESTIONS AND EXPRESS CONCERNS. , ISTOP REGISTRY REVIEWED AND DEMONSTRATES COMPLLIANCE. (REF # [id number] ) BRINGS IN MEDICATIONS WHICH IS APPROPRIATE FOR WHAT WAS DISPENSED. RECENT URINE TOXICOLOGY REVIEWED. NO UNAUTHORIZED MEDICATIONS. NO ILLICIT SUBSTANCES AND PRESCRIBED MEDICATIONS WERE PRESENT. PREVENTIVE MEDICINE PAIN CLINIC TEACHING: THE PATIENT HAS BEEN EDUCATED REGARDING PAIN, THE RISK FOR PAIN, THE IMPORTANCE OF EFFECTIVE PAIN MANAGEMENT, AND THE PAIN ASSESSMENT PROCESS. : DISCUSSED CARE PLAN WITH PATIENT, PATIENT VERBALIZES UNDERSTANDING. UTOX SCREENING AND NARCOTIC AGREEMENT WAS SIGNED. PROCEDURE CODES FA211 ESTABILISHED PATIENT [facility] CHARGE DISPOSITION & COMMUNICATION FOLLOW UP 3 MONTHS (REASON: BACK PAIN ) ELECTRONICALLY SIGNED BY TAMANNA HOOPER ON 06/18/2020 AT 08:38 AM EDT DISCLAIMER : THIS IS A VISIT SUMMARY EXTRACTED FROM THE [facility] CHART. IT IS NOT A COPY OF THE [facility] PROGRESS NOTE. MTDD
== END ==
LOC: M PAIN 09:15
PROVIDERS: ATTEND Family Medicine
DX: M47.817 Spondylosis without myelopathy or radiculopathy, lumbosacral region (principal); Z79.891 Long term (current) use of opiate analgesic; Z79.899 Other long term (current) drug therapy; Z88.1 Allergy status to other antibiotic agents; Z88.8 Allergy status to other drugs, medicaments and biological substances; Z91.048 Other nonmedicinal substance allergy status

== ENCOUNTER → 2020-09-15 | Outpatient (CLI) | payer OTHER ==
[~2020-09-15] MED LIST changes: +ISOVUE-370 76% 100ML VIAL As Ordered ONE
--- NOTE | 2020-09-15 09:28 | REP ---
INDICATION: RENOVASCULAR HYPERTENSION. COMPARISON: 05/01/2017 TECHNIQUE: Axial precontrast, contrast-enhanced and delayed images from the lung bases to the pubic symphysis using 100 cc Isovue 370 intravenous contrast material. Coronal and sagittal reformations obtained. This CT examination was performed using the following dose reduction techniques: Automated exposure control, adjustment of mA and/or kv according to the patient's size, and the use of iterative reconstruction technique. FINDINGS: There is evidence for prior left renal vascular coil placement and complete atrophic appearance to the left kidney. The right kidney demonstrates mild compensatory enlargement with normal enhancement. There is no evidence for visible atherosclerotic disease. No right renal abnormality identified. Liver, spleen, pancreas, gallbladder, and bilateral adrenal glands are normal. The enteric system is without obstruction or acute inflammatory process. Pelvis demonstrates normal bladder and myomatous changes to the uterus. No ascites. No free air. No adenopathy. Abdominal aorta and vasculature are normal. Musculoskeletal structures without acute osseous abnormality. There is evidence for prior anterior fixation at L5-S1 with laminectomy. Lung bases are clear. IMPRESSION: 1. Prior vascular procedure involving the left kidney with complete atrophic appearance to the left kidney. Normal appearance to the right kidney. 2. No evidence for atherosclerotic disease. 3. Myomatous changes to the uterus. <Electronically signed by New Lora > 09/15/20 0046
== END ==
LOC: M RAD 08:18
PROVIDERS: ATTEND Urology
DX: I15.0 Renovascular hypertension (principal)

== ENCOUNTER → 2020-10-13 | Outpatient (CLI) | payer OTHER ==
[~2020-10-13] MED LIST changes: -ISOVUE-370 76% 100ML VIAL As Ordered ONE
== END ==
LOC: M LABSMTC 10:03
PROVIDERS: ATTEND Anesthesiology
DX: Z01.812 Encounter for preprocedural laboratory examination (principal); Z20.822 Contact with and (suspected) exposure to COVID-19

== ENCOUNTER 2020-10-15 06:15 | Inpatient (IN) | payer OTHER ==
[2020-10-15] VITALS (9 sets, daily range): BP systolic 112–168; BP diastolic 70–96
[~2020-10-15] VITALS: Ht 154.9 cm; Wt 71.2 kg
[~2020-10-15 06:15] MED LIST changes: +GENTAMICIN 80 MG in IV 1 EA IV ONE; +LR 1,000 ML IV ONE
--- OUTSIDE RECORDS SUMMARY | 2020-10-15 06:21 | CCD ---
Author Author [facility] Organization [facility] Address Unknown Phone Unavailable Care Team Providers Care Rn Medicare Name Role Phone Leonides Sheffield Unavailable PROBLEMS Type Condition ICD9-CM Code [id number] Code Onset Dates Condition S tatus SNOMED Code Notes Problem Chronic prescription opiate use Z79.899 Active 799828788 Problem Myalgia M79.1 Active 45432267 Problem Lumbar post-laminectomy syndrome M96.1 Active 789187273 Problem Hematuria 599.70 Active 42185257 Problem Preop testing Z01.818 Active 636354101 Problem Lumbar radiculopathy M54.16 Active 157169627 Problem Renovascular hypertension I15.0 Active 536678 005 Problem Hematuria - Gross 599.71 Active 609998799 Problem Lumbar Facet arthropathy M47.816 Active 4618759 08 Problem Spondylosis of lumbar region without myelopathy or radiculopathy M47.816 Active 34338303 Problem Spondylosis of lumbosacral region without myelop athy or radiculopathy M47.817 Active 65562474 Problem Atrophic kidney, acquired N26.1 Active 156411 005 ALLERGIES Allergen (clinical drug ingredient) Drug/Non Drug Allergy do cumented on EMR Reaction Allergy Type Onset Date Status cephalexin Keflex(NDC Code:[address]-21) Rash and Hives Drug Allergy Active acetaminophen / oxycodone Percocet Itching Drug Allergy Inactive sulfamethoxazole / trimethoprim Bactrim DS(NDC Code:[address]-4 1) Dyspnea Drug Allergy Active adhesive on med patches Rash Non Drug Allergy Active ENCOUNTERS from 1970 to 2020-09-10 Encounter Location Date Provider Diagnosis [facility] [address] [place] [address] Aug, Leonides Sheffield Myalgia M79.1 and Intervertebral disc di sorfrannie with radiculopathy, lumbosacral region M51.17 IMMUNIZATIONS No Information SOCIAL HISTORY Sex Assigned At : Social History Observation Description Sex Assigned At Unknown Language: Question Answer Notes Languages spoken: Slovenian Hoahaoism: Question Answer Notes Hoahaoism 08 Synagogue Alcohol Screening: Question Answer Notes Did you have a drink containing alcohol in the past year? Ye s Points 1 Interpretation Negative How often did you have six or more drinks on one occas ion in the past year? Never (0 points) How many drinks did you have on a typica l day when you were drinking in the past year? 1 or 2 (0 points) How often did you have a drink containing alcohol in t he past year? Monthly or less (1 point) REASON FOR REFERRAL No Information VITAL SIGNS No information MEDICATIONS Medication SIG (Take, Route, Frequency, Duration) Notes Start Da te End Date Status PredniSONE 10 MG 1 tablet Orally take 4 tab x 3 day, 3 tab x 3 day, 2 tabx 3 day 1 tab x 3 days for 30 day(s) May, Not -Taking Hair Skin and Nails Formula - as directed Orally Active VESIcare 10 mg 1 tablet Orally Once a day for 30 day(s) Jun, Not-Taking Tizanidine HCl 2 MG 1 tablet Orally Three times a day for muscle spasms for 90 days Jan, Active Metoprolol Succinate ER 100 MG 1 tablet Orally bid Active Pyridium 200 mg 1 tablet after meals Orally Three times a day Not-Taking [place] 10-325 MG 1 tablet as needed Orally ev kaye 6 hrs prn severe pain MDD=2 for 10 day(s) Jan, Not-Taking Gabapentin 100 MG 1 capsule Orally for pain Three times a day fo r 90 days Feb, Not-Taking Spironolactone 25 MG 1 tablet Orally twice a day Active Clonidine HCl 0.2 MG 1 tablet Orally tid Active CloNIDine 0.1 MG/24HR 1 patch to skin Transdermal for 30 day(s) Not-Taking HydrALAZINE HCl 100 MG tablet with food Orally Three times a day and a prn dose Active Losartan Potassium 100 MG 1 tablet Orally Once a day Not-Taking Carisoprodol 350 MG 1 tablet as needed Orally Da sadie prn spasm MDD=1 for 30 day(s) Oct, Not-Taking Hydrocodone-Acetaminophen 5-300 MG 1 tablet as needed Orally for pain every 12 hrs MDD2 for 30 days Nov, Not-Taking Mobic 15 MG 1 tablet Orally Once a day for 30 day(s) 11 y, 2015 Not-Taking Tramadol HCl 50 MG 1 tablet as needed Orally ev kaye 6 hrs prn pain MDD=4 for 30 day(s) Oct, Active Tekturna HCT 300-25 MG 1 tablet Orally Once a day for 30 day(s) Active Oxycodone HCl 5 MG 1 tablet as needed Orally fo r pain every 12 hrs MDD2 for 30 days Jul, Not-Taking PROCEDURES No Information RESULTS No Results REASON FOR VISIT TRAMADOL/TIZANIDINE MEDICAL (GENERAL) HISTORY Type Description Date Medical History hematuria Medical History Kidney Stones Medical History Chronic Back Pain - With Lazarus beto Stimulator Implant, removed 2016 Medical History renal disease/left kidney not functionin g Surgical History ovarian cysts Surgical History dorsal stimulator 2010 Surgical History lithotripsy 2005 Surgical History Cysto; Bladder Biopsies and Fulgeration 06/24/2013 Surgical History Discectomy Surgical History dorasal stimulator removed 11/09 Surgical History SPACER CAGE IN L5-S1 BY MD KORTNEY VALLE 03/29 017 Hospitalization History surgeries Goals Section No Information Health Concerns No Information MEDICAL EQUIPMENT No Information MENTAL STATUS No Information FUNCTIONAL STATUS No Information ASSESSMENTS Encounter Date Diagnosis Assessment Notes Treatment Notes Treatm ent Clinical Notes Aug, Myalgia (ICD-10 - M79.1) Aug, Intervertebral disc disorder s with radiculopathy, lumbosacral region (ICD-10 - M51.17) PLAN OF TREATMENT Medication Medication Name Sig Start Date Stop Date Tizanidine HCl 2 MG 1 tablet Orally Three times a day for muscle spasms for 90 days Jan, Tramadol HCl 50 MG 1 tablet as needed Orally ev kaye 6 hrs prn pain MDD=4 for 30 day(s) Oct, Next Appt Details Provider Name:Leonides Ovalle Yohannes, 2020-10-28 01:45:00 PM, [address] [place], [address], Insurance Providers Payer Name Payer Address Payer Phone Insured Name Patient Relati onship to Insured Coverage Start Date Coverage End Date [employer] [place] [address] [facility] 2 [phone] ELI TURCIOS 2016 2016
--- OUTSIDE RECORDS SUMMARY | 2020-10-15 06:21 | CCD ---
Author Author [facility] Organization [facility] Address Unknown Phone Unavailable Care Team Providers Care Algology Teacher Name Role Phone Reagan Staples Unavailable PROBLEMS Type Condition ICD9-CM Code HFA56-NO Code Onset Dates Condition S tatus SNOMED Code Notes Problem Chronic prescription opiate use Z79.899 Active 844134514 Problem Myalgia M79.1 Active 02652913 Problem Lumbar post-laminectomy syndrome M96.1 Active 819290902 Problem Hematuria 599.70 Active 92376136 Problem Preop testing Z01.818 Active 283247050 Problem Lumbar radiculopathy M54.16 Active 827680095 Problem Renovascular hypertension I15.0 Active 996792 005 Problem Hematuria - Gross 599.71 Active 280601231 Problem Lumbar Facet arthropathy M47.816 Active 3021250 08 Problem Spondylosis of lumbar region without myelopathy or radiculopathy M47.816 Active 82455903 Problem Spondylosis of lumbosacral region without myelop athy or radiculopathy M47.817 Active 99797166 Problem Atrophic kidney, acquired N26.1 Active 555462 005 ALLERGIES Allergen (clinical drug ingredient) Drug/Non Drug Allergy do cumented on EMR Reaction Allergy Type Onset Date Status cephalexin Keflex(NDC Code:[address]-32) Rash and Hives Drug Allergy Active acetaminophen / oxycodone Percocet Itching Drug Allergy Inactive sulfamethoxazole / trimethoprim Bactrim DS(NDC Code:[address]-0 1) Dyspnea Drug Allergy Active adhesive on med patches Rash Non Drug Allergy Active ENCOUNTERS from 1970 to 2020-09-10 Encounter Location Date Provider Diagnosis [facility] [address] [place] [address] Aug Reagan Staples IMMUNIZATIONS No Information SOCIAL HISTORY Sex Assigned At : Social History Observation Description Sex Assigned At Unknown Language: Question Answer Notes Languages spoken: Czech Holiness: Question Answer Notes Holiness 08 Yazdanism Alcohol Screening: Question Answer Notes Did you [...] meals Orally Three times a day Not-Taking [place] 10-325 MG 1 tablet as needed Orally [...] Orally Once a day for 30 day(s) 2015 Not-Taking Tramadol HCl 50 MG 1 [...] Information RESULTS No Results REASON FOR VISIT CT appt MEDICAL (GENERAL) HISTORY Type Description Date Medical [...] No Information FUNCTIONAL STATUS No Information ASSESSMENTS No Information PLAN OF TREATMENT Medication Medication Name Sig Start Date Stop Date Tizanidine HCl 2 MG 1 tablet Orally Three times a day for muscle spasms for 90 days Jan, Tramadol HCl 50 MG 1 tablet as needed Orally ev kaye 6 hrs prn pain MDD=4 for 30 day(s) Oct, Next Appt Details Provider Name:Leonides Sheffield, 2020-10-28 01:45:00 PM, [address] [place], [address], Insurance Providers Payer Name Payer Address Payer Phone Insured Name Patient Relati onship to Insured Coverage Start Date Coverage End Date [facility] [address] [facility] 2 [phone] ELI TURCIOS 2016 2016
--- OUTSIDE RECORDS SUMMARY | 2020-10-15 06:21 | CCD ---
Author Author [facility] Organization [facility] Address Unknown Phone Unavailable Care Team Providers Care Aerographer Name Role Phone Leonides Sheffield Unavailable PROBLEMS Type Condition ICD9-CM Code [id number] Code Onset Dates Condition S tatus SNOMED Code Notes Problem Hematuria 599.70 Active 86950267 Problem Hematuria - Gross 599.71 Active 231991308 Problem Chronic prescription opiate use Z79.899 Active 490929816 Problem Spondylosis of lumbar region without myelopathy or radiculopathy M47.816 Active 40108857 Problem Spondylosis of lumbosacral region without myelop athy or radiculopathy M47.817 Active 51588499 Problem Lumbar radiculopathy M54.16 Active 889767248 Problem Myalgia M79.1 Active 57537131 Problem Lumbar post-laminectomy syndrome M96.1 Active 291717409 Problem Lumbar Facet arthropathy M47.816 Active 6337591 08 ALLERGIES Allergen (clinical drug ingredient) Drug/Non Drug Allergy do cumented on EMR Reaction Allergy Type Onset Date Status cephalexin Keflex([facility] Code:[address]-61) Rash and Hives Drug Allergy Active acetaminophen / oxycodone Percocet Itching Drug Allergy Inactive sulfamethoxazole / trimethoprim Bactrim DS(ND Code:[address]-7 1) Dyspnea Drug Allergy Active adhesive on med patches Rash Non Drug Allergy Active ENCOUNTERS from 1971 to 2020-07-30 Encounter Location Date Provider Diagnosis [facility] [address] [place] [address] Jul, Leonides Sheffield Intervertebral disc disorders with radic ulopathy, lumbosacral region M51.17 IMMUNIZATIONS No Information SOCIAL HISTORY Sex Assigned At : Social History Observation Description Sex Assigned At Unknown Language: Question Answer Notes Languages spoken: Wolof Scientologist: Question Answer Notes Scientologist 08 Mu-Ism Alcohol Screening: Question Answer Notes Did you [...] Notes Start Da te End Date Status CloNIDine 0.1 MG/24HR 1 patch to skin Transdermal for 30 day(s) Not-Taking Carisoprodol 350 MG 1 tablet as needed Orally Da sadie prn spasm MDD=1 for 30 day(s) Oct, Not-Taking Tramadol HCl 50 MG 1 tablet as needed Orally ev kaye 6 hrs prn pain MDD=4 for 30 day(s) Oct, Active HydrALAZINE HCl 50 MG tablet with food Orally Three times a day Active Mobic 15 MG 1 tablet Orally Once a day for 30 day(s) 2015 Not-Taking Clonidine HCl 0.2 MG 1 tablet Orally tid Active Tizanidine HCl 2 MG 1 tablet Orally Three times a day for muscle spasms for 90 days Jan, Active PredniSONE 10 MG 1 tablet Orally take 4 tab x 3 day, 3 tab x 3 day, 2 tabx 3 day 1 tab x 3 days for 30 day(s) May, Not -Taking [place] 10-325 MG 1 tablet as needed Orally ev kaye 6 hrs prn severe pain MDD=2 for 10 day(s) Jan, Not-Taking Hydrocodone-Acetaminophen 5-300 MG 1 tablet as needed Orally for pain every 12 hrs MDD2 for 30 days Nov, Not-Taking Losartan Potassium 100 MG 1 tablet Orally Once a day Not-Taking VESIcare 10 mg 1 tablet Orally Once a day for 30 day(s) Jun, Not-Taking Pyridium 200 mg 1 tablet after meals Orally Three times a day Not-Taking Tekturna HCT 300-25 MG 1 tablet Orally Once a day for 30 day(s) Active Gabapentin 100 MG 1 capsule Orally for pain Three times a day fo r 90 days Feb, Not-Taking Spironolactone 25 MG 1 tablet Orally twice a day Active Metoprolol Succinate ER 100 MG 1 tablet Orally bid Active Oxycodone HCl 5 MG 1 tablet as needed Orally fo r pain every 12 hrs MDD2 for 30 days Jul, Active PROCEDURES No Information RESULTS No Results REASON FOR VISIT Oxycodone Refill MEDICAL (GENERAL) HISTORY Type Description Date Medical [...] Notes Treatment Notes Treatm ent Clinical Notes Jul, Intervertebral disc disorder s with radiculopathy, lumbosacral region (ICD-10 - M51.17) PLAN OF TREATMENT Medication Medication Name Sig Start Date Stop Date Tramadol HCl 50 MG 1 tablet as needed Orally ev kaye 6 hrs prn pain MDD=4 for 30 day(s) Oct, Oxycodone HCl 5 MG 1 tablet as needed Orally fo r pain every 12 hrs MDD2 for 30 days Jul, Next Appt Details Provider Name:Leonides Sheffield, 2020-09-22 09:15:00 AM, [address] [place], [address], Insurance Providers Payer Name Payer Address Payer Phone Insured Name Patient Relati onship to Insured Coverage Start Date Coverage End Date [facility] [address] [facility] 2 [phone] ELI TURCIOS 2016 2016
--- OUTSIDE RECORDS SUMMARY | 2020-10-15 06:21 | CCD ---
Author Author [facility] Organization [facility] Address Unknown Phone Unavailable Care Team Providers Care Wellness Specialist Name Role Phone MEGAN DONATO Unavailable Unavailable Amarilys Christensen MD Unavailable Unavailable FerminAmarilys bush MD Unavailable Unavailable FerminAmarilys bush MD Unavailable Unavailable FerminAmarilys bush MD Unavailable Unavailable FerminAmarilys bush MD Unavailable Unavailable FerminAmarilys bush MD Unavailable Unavailable FerminAmarilys bush MD Unavailable Unavailable FerminAmarilys bush MD Unavailable Unavailable FerminAmarilys bush MD Unavailable Unavailable FerminAmarilys bush MD Unavailable Unavailable FerminAmarilys bush MD Unavailable Unavailable FerminAmarilys MD Unavailable Unavailable FerminAmarilys MD Unavailable Unavailable FerminAmarilys bush MD Unavailable Unavailable FerminAmarilys bush MD Unavailable Unavailable FerminAmarilys bush MD Unavailable Unavailable FerminAmarilys bush MD Unavailable Unavailable FerminAmarilys bush MD Unavailable Unavailable FerminAmarilys MD Unavailable Unavailable FerminAmarilys MD Unavailable Unavailable FerminAmarilys bush MD Unavailable Unavailable FerminAmarilys MD Unavailable Unavailable FerminAmarilys MD Unavailable Unavailable FerminAmarilys bush MD Unavailable Unavailable FerminAmarilys MD Unavailable Unavailable FerminAmarilys MD Unavailable Unavailable FerminAmarilys bush MD Unavailable Unavailable FerminAmarilys MD Unavailable Unavailable FerminAmarilys MD Unavailable Unavailable Fermin, Amarilys MD Unavailable Unavailable Fermin, Amarilys MD Unavailable Unavailable Fermin, Amarilys MD Unavailable Unavailable Fermin, Amarilys MD Unavailable Unavailable Fermin, Amarilys MD Unavailable Unavailable Efrmin, Amarilys MD Unavailable Unavailable Fermin, Amarilys MD Unavailable Unavailable Fermin, Amarilys MD Unavailable Unavailable Fermin, Amarilys MD Unavailable Unavailable Fermin, Amarilys MD Unavailable Unavailable Fermin, Amarilys MD Unavailable Unavailable Fermin, Amarilys MD Unavailable Unavailable Fermin, Amarilys MD Unavailable Unavailable Fermin, Amarilys MD Unavailable Unavailable Fermin, Amarilys MD Unavailable Unavailable Fermin, Amarilys MD Unavailable Unavailable Fermin, Amarilys MD Unavailable Unavailable Fermin, Amarilys MD Unavailable Unavailable Fermin, Amarilys MD Unavailable Unavailable Fermin, Amarilys MD Unavailable Unavailable Fermin, Amarilys MD Unavailable Unavailable Fermin, Amarilys MD Unavailable Unavailable Fermin, Amarilys MD Unavailable Unavailable Fermin, Amarilys MD Unavailable Unavailable Fermin, Amarilys MD Unavailable Unavailable Fermin, Amarilys MD Unavailable Unavailable Fermin, Amarilys MD Unavailable Unavailable Fermin, Amarilys MD Unavailable Unavailable Fermin, Amarilys MD Unavailable Unavailable Fermin, Amarilys MD Unavailable Unavailable Fermin, Amarilys MD Unavailable Unavailable Fermin, Amarilys MD Unavailable Unavailable Fermin, Amarilys MD Unavailable Unavailable Fermin, Amarilys MD Unavailable Unavailable Fermin, Amarilys MD Unavailable Unavailable Fermin, Amarilys MD Unavailable Unavailable Fermin, Amarilys MD Unavailable Unavailable Fermin, Amarilys MD Unavailable Unavailable Fermin, Amarilys MD Unavailable Unavailable Fermin, Amarilys MD Unavailable Unavailable Fermin, Amarilys MD Unavailable Unavailable Fermin, Amarilys MD Unavailable Unavailable Fermin, Amarilys MD Unavailable Unavailable Fermin, Amarilys MD Unavailable Unavailable Fermin, Amarilys MD Unavailable Unavailable Fermin, Amarilys MD Unavailable Unavailable Fermin, Amarilys MD Unavailable Unavailable Fermin, Amarilys MD Unavailable Unavailable Fermin, Amarilys MD Unavailable Unavailable Fermin, Amarilys MD Unavailable Unavailable Fermin, Amarilys MD Unavailable Unavailable Fermin, Amarilys LAO Unavailable Unavailable Chanel GARAY MD Unavailable Unavailable Chanel GARAY MD Unavailable Unavailable Chanel GARAY MD Unavailable Unavailable Chanel GARAY MD Unavailable Unavailable Chanel GARAY MD Unavailable Unavailable Chanel GARAY MD Unavailable Unavailable Chanel GARAY MD Unavailable Unavailable Chanel GARAY MD Unavailable Unavailable Chanel GARAY MD Unavailable Unavailable Chanel GARAY MD Unavailable Unavailable Chanel GARAY MD Unavailable Unavailable Chanel GARAY MD Unavailable Unavailable Chanel GARAY MD Unavailable Unavailable Chanel GARAY MD Unavailable Unavailable Chanel GARAY MD Unavailable Unavailable Chanel GARAY MD Unavailable Unavailable Chanel GARAY MD Unavailable Unavailable Chanel GARAY MD Unavailable Unavailable Chanel GARAY MD Unavailable Unavailable Chanel GARAY MD Unavailable Unavailable Chanel GARAY MD Unavailable Unavailable Chanel GARAY MD Unavailable Unavailable Chanel GARAY MD Unavailable Unavailable Chanel GARAY MD Unavailable Unavailable Chanel GARAY MD Unavailable Unavailable Chanel GARAY MD Unavailable Unavailable Chanel GARAY MD Unavailable Unavailable Chanel GARAY MD Unavailable Unavailable Chanel GARAY MD Unavailable Unavailable Chanel GARAY MD Unavailable Unavailable Chanel GARAY MD Unavailable Unavailable Chanel GARAY MD Unavailable Unavailable Chanel GARAY MD Unavailable Unavailable Chanel GARAY MD Unavailable Unavailable Chanel GARAY MD Unavailable Unavailable Chanel GARAY MD Unavailable Unavailable Chanel GARAY MD Unavailable Unavailable Chanel GARAY MD Unavailable Unavailable Chanel GARAY MD Unavailable Unavailable Chanel GARAY MD Unavailable Unavailable Chanel GARAY MD Unavailable Unavailable Chanel GARAY MD Unavailable Unavailable Chanel GARAY MD Unavailable Unavailable Chanel GARAY MD Unavailable Unavailable Chanel GARAY MD Unavailable Unavailable Chanel GARAY MD Unavailable Unavailable Chanel GARAY MD Unavailable Unavailable Chanel GARAY MD Unavailable Unavailable Chanel GARAY MD Unavailable Unavailable Chanel GARAY MD Unavailable Unavailable Chanel GARAY MD Unavailable Unavailable Chanel GARAY MD Unavailable Unavailable Chanel GARAY MD Unavailable Unavailable Chanel GARAY MD Unavailable Unavailable Chanel GARAY MD Unavailable Unavailable Chanel GARAY MD Unavailable Unavailable Chanel GARAY MD Unavailable Unavailable Chanel GARAY MD Unavailable Unavailable Chanel GARAY MD Unavailable Unavailable Chanel GARAY MD Unavailable Unavailable Chanel GARAY MD Unavailable Unavailable Chanel GARAY MD Unavailable Unavailable Chanel GARAY MD Unavailable Unavailable Chanel GARAY MD Unavailable Unavailable Chanel GARAY MD Unavailable Unavailable Chanel GARAY MD Unavailable Unavailable Amarilys Christensen MD Unavailable Unavailable FerminAmarilys bush MD Unavailable Unavailable FerminAmarilys bush MD Unavailable Unavailable FerminAmarilys bush MD Unavailable Unavailable FerminAmarilys bush MD Unavailable Unavailable Fermin, Amarilys MD Unavailable Unavailable Fermin, Amarilys MD Unavailable Unavailable Fermin, Amarilys MD Unavailable Unavailable Fermin, Amarilys MD Unavailable Unavailable Fermin, Amarilys MD Unavailable Unavailable Fermin, Amarilys MD Unavailable Unavailable Fermin, Amarilys MD Unavailable Unavailable Fermin, Amarilys MD Unavailable Unavailable Fermin, Amarilys MD Unavailable Unavailable Fermin, Amarilys MD Unavailable Unavailable Fermin, Amarilys MD Unavailable Unavailable Fermin, Amarilys MD Unavailable Unavailable Fermin, Amarilys MD Unavailable Unavailable Fermin, Amarilys MD Unavailable Unavailable Fermin, Amarilys MD Unavailable Unavailable Fermin, Amarilys MD Unavailable Unavailable Fermin, Amarilys MD Unavailable Unavailable Fermin, Amarilys MD Unavailable Unavailable Fermin, Amarilys MD Unavailable Unavailable Fermin, Amarilys MD Unavailable Unavailable Fermin, Amarilys MD Unavailable Unavailable Fermin, Amarilys MD Unavailable Unavailable Fermin, Amarilys MD Unavailable Unavailable Fermin, Amarilys MD Unavailable Unavailable Fermin, Amarilys MD Unavailable Unavailable Fermin, Amarilys MD Unavailable Unavailable Fermin, Amarilys MD Unavailable Unavailable Fermin, Amarilys MD Unavailable Unavailable Fermin, Amarilys MD Unavailable Unavailable Fermin, Amarilys MD Unavailable Unavailable Fermin, Amarilys MD Unavailable Unavailable Fermin, Amarilys MD Unavailable Unavailable Fermin, Amrailys MD Unavailable Unavailable Fermin, Amarilys MD Unavailable Unavailable Fermin, Amarilys MD Unavailable Unavailable Fermin, Amarilys MD Unavailable Unavailable Fermin, Amarilys MD Unavailable Unavailable Fermin, Amarilys MD Unavailable Unavailable Fermin, Amarilys MD Unavailable Unavailable Fermin, Amarilys MD Unavailable Unavailable Fermin, Amarilys MD Unavailable Unavailable Fermin, Amarilys MD Unavailable Unavailable Fermin, Amarilys MD Unavailable Unavailable Fermin, Amarilys MD Unavailable Unavailable Fermin, Amarilys MD Unavailable Unavailable Fermin, Amarilys MD Unavailable Unavailable Fermin, Amarilys MD Unavailable Unavailable Fermin, Amarilys MD Unavailable Unavailable Fermin, Amarilys MD Unavailable Unavailable Fermin, Amarilys MD Unavailable Unavailable Fermin, Amarilys MD Unavailable Unavailable Fermin, Amarilys MD Unavailable Unavailable Fermin, Amarilys MD Unavailable Unavailable Fermin, Amarilys MD Unavailable Unavailable Fermin, Amarilys MD Unavailable Unavailable Fermin, Amarilys MD Unavailable Unavailable Fermin, Amarilys MD Unavailable Unavailable Fermin, Amarilys MD Unavailable Unavailable Fermin, Amarilys MD Unavailable Unavailable Fermin, Amarilys MD Unavailable Unavailable Fermin, Amarilys MD Unavailable Unavailable Fermin, Amarilys MD Unavailable Unavailable Fermin, Amarilys MD Unavailable Unavailable Fermin, Amarilys MD Unavailable Unavailable Fermin, Amarilys MD Unavailable Unavailable Fermin, Amarilys MD Unavailable Unavailable Fermin, Amarilys MD Unavailable Unavailable Fermin, Amarilys MD Unavailable Unavailable Fermin, Amarilys MD Unavailable Unavailable Fermin, Amarilys MD Unavailable Unavailable Fermin, Amarilys MD Unavailable Unavailable Fermin, Amarilys MD Unavailable Unavailable Fermin, Amarilys MD Unavailable Unavailable Fermin, Amarilys MD Unavailable Unavailable Amarilys Christensen MD Unavailable Unavailable FerminAmarilys bush MD Unavailable Unavailable Ryfun, Geraldine Gutierreznifer ROPEMAN-C Unavailable Unavaila ble Ryfun, Geraldine Gutierreznifer ROPEMAN-C Unavailable Unavaila ble Ryfun, Geraldine Gutierreznifer ROPEMAN-C Unavailable Unavaila ble Ryfun, Geraldine Gutierreznifer ROPEMAN-C Unavailable Unavaila ble Ryfun, Geraldine Gutierreznifer ROPEMAN-C Unavailable Unavaila ble Ryfun, Geraldine Gutierreznifer ROPEMAN-C Unavailable Unavaila ble Ryfun, Geraldine Gutierreznifer ROPEMAN-C Unavailable Unavaila ble Ryfun, Geraldine Eva ROPEMAN-C Unavailable Unavaila ble Ryfun, Geraldine Eva ROPEMAN-C Unavailable Unavaila ble Ryfun, Geraldine Eva ROPEMAN-C Unavailable Unavaila ble Ryfun, Geraldine Eva ROPEMAN-C Unavailable Unavaila ble Ryfun, Geraldine Gutierreznifer ROPEMAN-C Unavailable Unavaila ble Ryfun, Geraldine Eva ROPEMAN-C Unavailable Unavaila ble Ryfun, Geraldine Eva ROPEMAN-C Unavailable Unavaila ble Ryfun, Geraldine Eva ROPEMAN-C Unavailable Unavaila ble Ryfun, Geraldine Eva ROPEMAN-C Unavailable Unavaila ble Ryfun, Geraldine Gutierreznifer ROPEMAN-C Unavailable Unavaila ble Ryfun, Geraldine Gutierreznifer ROPEMAN-C Unavailable Unavaila ble Ryfun, Geraldine Gutierreznifer ROPEMAN-C Unavailable Unavaila ble Ryfun, Geraldine Eva ROPEMAN-C Unavailable Unavaila ble Ryfun, Geraldine Eva ROPEMAN-C Unavailable Unavaila ble Ryfun, Geraldine Gutierreznifer ROPEMAN-C Unavailable Unavaila ble Ryfun, Geraldine Eva ROPEMAN-C Unavailable Unavaila ble Ryfun, Geraldine Eva ROPEMAN-C Unavailable Unavaila ble Ryfun, Geraldine Eva ROPEMAN-C Unavailable Unavaila ble Ryfun, Geraldine Gutierreznifer ROPEMAN-C Unavailable Unavaila ble Ryfun, Geraldine Eva ROPEMAN-C Unavailable Unavaila ble Ryfun, Geraldine Eva ROPEMAN-C Unavailable Unavaila ble Ryfun, Geraldine Eva ROPEMAN-C Unavailable Unavaila ble Ryfun, Geraldine Velasquez ROPEMAN-C Unavailable Unavaila ble Ryfun, Geraldine Velasquez ROPEMAN-C Unavailable Unavaila ble Re-disclosure Warning The records that you are about to access may contain information from federally-assisted alcohol or drug abuse programs. If such information is present, then the following federally mandated warning applies: This information has been disclosed to you from records protected by federal confidentiality rules (42 CFR part 2). The federal rules prohibit you from making any further disclosure of this information unless further disclosure is expressly permitted by the written consent of the person to whom it pertains or as otherwise permitted by 42 CFR part 2. A general authorization for the release of medical or other information is NOT sufficient for this purpose. The Federal rules restrict any use of the information to criminally investigate or prosecute any alcohol or drug abuse patient.The records that you are about to access may contain highly sensitive health information, the redisclosure of which is protected by Article 27-F of the [facility] Public Health law. If you continue you may have access to information: Regarding HIV / AIDS; Provided by facilities licensed or operated by the [facility] Office of Mental Health; or Provided by the [facility] Office for People With Developmental Disabilities. If such information is present, then the following [facility] mandated warning applies: This information has been disclosed to you from confidential records which are protected by state law. State law prohibits you from making any further disclosure of this information without the specific written consent of the person to whom it pertains, or as otherwise permitted by law. Any unauthorized further disclosure in violation of state law may result in a fine or [place] health care facility sentence or both. A general authorization for the release of medical or other information is NOT sufficient authorization for further disc losure. Allergies and Adverse Reactions Type Description Substance Reaction Status Data Source(s ) Drug allergy Bactrim DS sulfamethoxazole / trimethoprim Dyspnea Ac tive eCW1 ([facility]) Drug allergy Keflex Cephalexin Rash and Hives Active eCW1 ([facility]) adhesive on med patches adhesive on med patches adhesive on med pat ches Rash Active eCW1 ([facility]) adhesive on med patches adhesive on med patches adhesive on med pat ches Rash Active eCW1 ([facility]) adhesive on med patches adhesive on med patches adhesive on med pat ches Rash Active eCW1 ([facility]) Family History Family Member Name Family Member Gender Family Member Status Date o f Status Description Data Source(s) Unknown Male Problem MEDENT ([facility]) defibrillator in situ Encounters Encounter Providers Location Date Indications Data Source(s ) [place] [address] [facility] [address] 09/10/2020 12:00:00 AM EST [facility]1 [facility]) [place] [address] [facility] [place] [address] 09/10/2020 12:00:00 AM EST [facility] [place] [address] [facility] [place] [address] 09/09/2020 12:00:00 AM EST eCW1 ([facility]) [place] [address] [facility] [place] [address] 09/07/2020 12:00:00 AM EST [facility]CW1 ([facility]) [place] [address] [facility] [place] [address] 07/28/2020 12:00:00 AM EST eCW1 ([facility]) [place] [address] [facility] [address] 06/30/2020 12:00:00 AM EST eCW1 ([facility]) [place] [address] [facility] [address] 06/22/2020 12:00:00 AM EDT [facility]) [place] [address] [facility] [place] [address] 06/17/2020 12:00:00 AM EDT eCW1 ([facility]) [place] [address] [facility] [place] [address] 03/13/2020 12:00:00 AM EDT eCW1 ([facility]) [place] [address] [facility] [place] [address] 02/11/2020 12:00:00 AM EDT eCW1 ([facility]) Unknown [address] [facility] [address] 01/24/2020 12:00:00 AM EDT eCW1 ([facility]) [facility] [address] [place] [phone] 01/24/2020 12:00:00 AM EDT eCW1 ([facility]) [facility] [address] [place] [id number] 01/09/2020 12:00:00 AM EDT eCW1 ([facility]) [facility] [address] [place] [id number] 11/25/2019 12:00:00 AM EDT eCW1 ([facility]) Outpatient Attender: Eva Falk ROPEMAN -CAttender: MEGANRosetta JACKSONIAttender: Amarilys Christensen MD [id number] 10/29/2019 12:00:00 AM EST [facility] [address] [place] [id number] 10/23/2019 12:00:00 AM EST eCW1 ([facility]) Outpatient Referrer: TOMAS GARAY MD 10/21/2019 03:33: 00 PM EST [facility] [address] [place] [phone] 09/27/2019 12:00:00 AM EST eCW1 ([facility]) Outpatient Referrer: Amarilys Christensen MD 09/24/2019 03:03:56 P M EST [facility] Outpatient Referrer: Amarilys Christensen MD 09/18/2019 09:12:04 A M EST [facility] Outpatient Attender: Amarilys Christensen MD MOCAM-MOCAM.SN 2019 12:00:00 AM EST - 09/18/2019 09:51:05 AM EST [facility] [address] [place] [id number] 09/09/2019 12:00:00 AM EST eCW1 ([facility]) Medications Medication Brand Name Start Date Product Form Dose Route Admi nistrative Instructions Pharmacy Instructions Status Indications Reaction Description Data Source(s) Oxycodone Hydrochloride 5 MG Oral Tablet Oxycodone HCl 5 MG Oxycodone HCl 5 MG 07/29/2020 12:00:00 AM EST 1.0 {tablet_as_needed} suspended Oxycodone HCl 5 MG eCW1 ([facility]) Oxycodone Hydrochloride 5 MG Oral Tablet Oxycodone HCl 5 MG Oxycodone HCl 5 MG 07/29/2020 12:00:00 AM EST 1.0 {tablet_as_needed} active Oxycodone HCl 5 MG eCW1 ([facility]) Oxycodone Hydrochloride 5 MG Oral Tablet Oxycodone HCl 5 MG Oxycodone HCl 5 MG 07/29/2020 12:00:00 AM EST 1.0 {tablet_as_needed} suspended Oxycodone HCl 5 MG eCW1 ([facility]) Oxycodone Hydrochloride 5 MG Oral Tablet Oxycodone HCl 5 MG Oxycodone HCl 5 MG 07/29/2020 12:00:00 AM EST 1.0 {tablet_as_needed} suspended Oxycodone HCl 5 MG eCW1 ([facility]) Oxycodone Hydrochloride 5 MG Oral Tablet Oxycodone HCl 5 MG Oxycodone HCl 5 MG 07/29/2020 12:00:00 AM EST 1.0 {tablet_as_needed} suspended Oxycodone HCl 5 MG eCW1 ([facility]) Oxycodone Hydrochloride 5 MG Oral Tablet Oxycodone HCl 5 MG Oxycodone HCl 5 MG 06/22/2020 12:00:00 AM EDT 1.0 {tablet_as_needed} active Oxycodone HCl 5 MG eCW1 ([facility]) Oxycodone Hydrochloride 5 MG Oral Tablet Oxycodone HCl 5 MG Oxycodone HCl 5 MG 06/22/2020 12:00:00 AM EDT 1.0 {tablet_as_needed} active Oxycodone HCl 5 MG eCW1 ([facility]) Oxycodone Hydrochloride 5 MG Oral Tablet Oxycodone HCl 5 MG Oxycodone HCl 5 MG 03/13/2020 12:00:00 AM EDT 1.0 {tablet_as_needed} active Oxycodone HCl 5 MG eCW1 ([facility]) Oxycodone Hydrochloride 5 MG Oral Tablet Oxycodone HCl 5 MG Oxycodone HCl 5 MG 03/13/2020 12:00:00 AM EDT 1.0 {tablet_as_needed} active Oxycodone HCl 5 MG eCW1 ([facility]) Oxycodone Hydrochloride 5 MG Oral Tablet Oxycodone HCl 5 MG Oxycodone HCl 5 MG 02/11/2020 12:00:00 AM EDT 1.0 {tablet_as_needed} active Oxycodone HCl 5 MG eCW1 ([facility]) Diclofenac Sodium 50 MG Delayed Release Oral Tablet Diclofen ac Sodium 50 MG 01/24/2020 12:00:00 AM EDT active 1 tablet eCW1 ([facility]) Oxycodone Hydrochloride 5 MG Oral Tablet Oxycodone HCl 5 MG Oxycodone HCl 5 MG 01/10/2020 12:00:00 AM EDT active 1 tablet as needed eCW1 ([facility]) Oxycodone Hydrochloride 5 MG Oral Tablet Oxycodone HCl 5 MG Oxycodone HCl 5 MG 01/10/2020 12:00:00 AM EDT active 1 tablet as needed eCW1 ([facility]) Oxycodone Hydrochloride 5 MG Oral Tablet Oxycodone HCl 5 MG Oxycodone HCl 5 MG 11/25/2019 12:00:00 AM EDT active 1 tablet as needed eCW1 ([facility]) Oxycodone Hydrochloride 5 MG Oral Tablet Oxycodone HCl 5 MG Oxycodone HCl 5 MG 10/23/2019 12:00:00 AM EST active 1 tablet as needed eCW1 ([facility]) Oxycodone Hydrochloride 5 MG Oral Tablet Oxycodone HCl 5 MG Oxycodone HCl 5 MG 09/10/2019 12:00:00 AM EST active 1 tablet as needed eCW1 ([facility]) Oxycodone Hydrochloride 5 MG Oral Tablet Oxycodone HCl 5 MG Oxycodone HCl 5 MG 09/10/2019 12:00:00 AM EST active 1 tablet as needed eCW1 ([facility]) Insurance Providers Payer name Policy type / Coverage type Policy ID Covered green party ID Covered green party's relationship to gonzalez Policy Gonzalez Plan Information [place] [employer] [id number] [facility] [id number] [facility] [id number] [facility] [id number] [place] [place] [id number] S [id number] [place] [employer] [id number] SP [id number] Courtney [id number] Courtney [id number] U [id number] Self [id number] FOR LIFE U [id number] Self [id number] Courtney [id number] SELF PAY ONLY SP ANSI-Commercial [id number] [employer] - [employer] (HMO) [id number] Family Dependent [id number] [employer] (HMO) [id number] Family Dependent [id number] ANSI-Commercial [id number] ANSI-Commercial [id number] ANSI-Commercial [id number] ANSI-Commercial [id number] ANSI-Commercial [id number] ANSI-Commercial [id number] ANSI-Commercial [id number] ANSI-Commercial [id number] ANSI-Commercial [id number] ANSI-Commercial [id number] ANSI-Commercial [id number] ANSI-Commercial [id number] ANSI-Commercial [id number] [facility] [employer] (O) [id number] [facility] [employer] (O) [id number] Family Dependent [id number] [facility] [id number] 2 [id number] U [id number] Self [id number] PI PI [facility] SR[facility] O [id number] S [id number] Courtney [id number] Courtney [id number] 005 [facility] [id number] HU2 [id number] [facility] [id number] HU2 [id number] U [id number] Spouse [id number] Problems, Conditions, and Diagnoses Code Display Name Description Problem Type Effective Dates Data Source(s) N26.1 [id number] Atrophic kidney, acquired Problem 09/07/2020 12:00:00 AM EST eCW1 ([facility]) I15.0 Renovascular hypertension Renovascular hypertension Pr oblem 09/07/2020 12:00:00 AM EST eCW1 ([facility]) Z01.818 Pre-procedure evaluation check Preop testing Problem 09/07/2020 12:00:00 AM EST eCW1 ([facility]) G89.29 Other chronic pain Other chronic pain Diagnosis 09:03:45 AM EST [facility] M54.5 Low back pain Low back pain Diagnosis 09/18/2019 09:03:45 AM EST [facility] M47.26 Other spondylosis with radiculopathy, katia ar region Other spondylosis with radiculopathy, katia Diagnosis 09/18/2019 09:03:45 AM EST [facility] Z98.890 Other specified postprocedural states Ot her specified postprocedural states Diagnosis 09/18/2019 09:03:45 AM EST [facility] Surgeries/Procedures Procedure Description Date Indications Data Source(s) TeleMedicine Est. Pt. Level 3 01/24/2020 12:00:00 AM E DT eCW1 ([facility]) PHYSICIAN TELEPHONE EVALUATION 11-20 MIN 11/25/2019 12 :00:00 AM EDT eCW1 ([facility]) ESTABILISHED PATIENT [facility] CHARGE 020 12:00:00 AM EST eCW1 ([facility]) Results ID Date Data Source [id number] 10/13/2020 10:20:00 AM EST [facility] Name Value Range Interpretation Code Description Data Belle rce(s) Supporting Document(s) SARS coronavirus 2 RNA [Presence] in Res piratory specimen by ALISSA with probe detection NEGATIVE [facility] This lab was ordered by [facility] a nd reported by [facility]. ID Date Data Source [id number] 05/02/2020 09:00:00 AM EDT [facility] Name Value Range Interpretation Code Description Data Belle rce(s) Supporting Document(s) SARS coronavirus 2 RNA [facility] This lab was ordered by [facility] and reported by [facility]. ID Date Data Source [id number] 10/10/2019 10:21:00 AM EST [facility] CT L S SPINE WO CONTRASTCLINICAL HISTORY: Back pain.COMPARISON: January 03, 2017TECHNIQUE: Unenhanced images were obtained in multiplanar reconstructions were performed.FINDINGS: Status post anterior interbody fusion L5-S1. The hardware appears intact. The alignment is normal.L1-2: Unremarkable.L2-3: Unremarkable.L3-4: Unremarkable.L4-5: There is a mild disc bulge asymmetric to the left. Spinal canal appears lower normal in size. Mild bilateral facet hypertrophy is noted.L5-S1: Spinal canal appears ample in size. There is a posterior disc osteophyte complex on the right causing mild mass effect. Note that this was predominantly soft tissue density on the previous examination where a right parasagittal disc protrusion was noted. It is now calcified.Incidental note is made of atrophic left kidney with multiple metallic densities in the left renal fossa which may represent embolization coils.IMPRESSION: Right paracentral L5-S1 calcified disc osteophyte complex causing mild mass effect in the region of the lateral recess.Low-normal canal size at L4-5 with asymmetric disc bulge slightly to the left. Satisfactory appearance status post anterior interbody fusion L5- S1.Dictated by: JASON CASTRO M.D. on 10/10/2019 Transcribed by: colt on <<TranscriptionDateTime1>>cc: Name Value Range Interpretation Code Description Data Belle rce(s) Supporting Document(s) ID Date Data Source [id number] 09/18/2019 09:15:00 AM EST [facility]: XRAY SPINE LS AP LAT FLEX EXTCLINICAL HISTORY: Increasing lumbar pain.COMPARISON: CT from 01/03/2017.TECHNIQUE: AP, lateral, and flexion extension lumbar spineFINDINGS: The patient is interval status post anterior interbody fusion at L5-S1. Alignment is near anatomic at the fused as well as unfused levels. Vertebral body heights appear maintained. There is no significant change in alignment with flexion or extension. Mild S- shaped thoracolumbar scoliosis appears unchanged.Multiple embolization coils are again noted in the left upper abdomen.IMPRESSION: Interval fusion at L5-S1 with near anatomic alignment. No alignment abnormality or abnormal motion seen elsewhere in the lumbar spine as well.Dictated by: ADAM LOWE M.D. on 09/18/2019 Transcribed by: colt on 09/18/2019 09:53 AMcc: Name Value Range Interpretation Code Description Data Belle rce(s) Supporting Document(s) Procedure Vital Signs ID Date Data Source UNK Name Value Range Interpretation Code Description Data Source(s) Diastolic blood pressure 76 mm[Hg] 76 mm[Hg] eCW1 ([facility]) Systolic blood pressure 130 mm[Hg] 130 mm[Hg] e CW1 ([facility]) Respiratory rate 18 /min 18 /min eCW1 ([facility]) Heart rate 103 /min 103 /min eCW1 ([facility]) Body mass index (BMI) [Ratio] 30.91 kg/m2 30.91 kg/m2 eCW1 ([facility]) Body height [in_i] eCW1 ([facility]) Body weight 163.6 [lb_av] 163.6 [lb_av] eCW1 ([facility]) Diastolic blood pressure 88 mm[Hg] 88 mm[Hg] eCW1 ([facility]) Systolic blood pressure 195 mm[Hg] 195 mm[Hg] e CW1 ([facility]) Body temperature 97.3 [degF] 97.3 [degF] eCW1 ( [facility]) Respiratory rate 18 /min 18 /min eCW1 ([facility]) Heart rate 99 /min 99 /min eCW1 ([facility]) Body mass index (BMI) [Ratio] 31.29 kg/m2 31.29 kg/m2 eCW1 ([facility]) Body height [in_i] eCW1 ([facility]) Body weight 165.6 [lb_av] 165.6 [lb_av] eCW1 ([facility]) Diastolic blood pressure 88 mm[Hg] 88 mm[Hg] eCW1 ([facility]) Systolic blood pressure 199 mm[Hg] 199 mm[Hg] e CW1 ([facility]) Body temperature 99.2 [degF] 99.2 [degF] eCW1 ( [facility]) Respiratory rate 18 /min 18 /min eCW1 ([facility]) Heart rate 90 /min 90 /min eCW1 ([facility]) Body mass index (BMI) [Ratio] 31.10 kg/m2 31.10 kg/m2 W1 ([facility]) Body height [in_i] eCW1 ([facility]) Body weight 164.6 [lb_av] 164.6 [lb_av] eCW1 ([facility]) Diastolic blood pressure 98 mm[Hg] 98 mm[Hg] eCW1 ([facility]) Systolic blood pressure 207 mm[Hg] 207 mm[Hg] e CW1 ([facility]) Body temperature 98.9 [degF] 98.9 [degF] eCW1 ( [facility]) Respiratory rate 18 /min 18 /min eCW1 ([facility]) Heart rate 97 /min 97 /min eCW1 ([facility]) Body mass index (BMI) [Ratio] 28.79 kg/m2 28.79 kg/m2 eCW1 ([facility]) Body height [in_us] eCW1 ([facility]) Body weight Measured 152.4 [lb_av] 152.4 [lb_av ] eCW1 ([facility]) Patient Treatment Plan of Care Planned Activity Planned Date Details Description Data Source (s) Oxycodone Hydrochloride 5 MG Oral Tablet 07/29/2020 12:00:00 AM EST eCW1 ([facility]) Oxycodone Hydrochloride 5 MG Oral Tablet 06/22/2020 12:00:00 AM EDT eCW1 ([facility]) Oxycodone Hydrochloride 5 MG Oral Tablet 06/22/2020 12:00:00 AM EDT eCW1 ([facility]) Oxycodone Hydrochloride 5 MG Oral Tablet 03/13/2020 12:00:00 AM EDT eCW1 ([facility]) Oxycodone Hydrochloride 5 MG Oral Tablet 02/11/2020 12:00:00 AM EDT eCW1 ([facility]) Diclofenac Sodium 50 MG Delayed Release Oral Tablet 01/24/20 12:00:00 AM EDT eCW1 ([facility]) Oxycodone Hydrochloride 5 MG Oral Tablet 01/10/2020 12:00:00 AM EDT eCW1 ([facility]) Oxycodone Hydrochloride 5 MG Oral Tablet 11/25/2019 12:00:00 AM EDT eCW1 ([facility]) Oxycodone Hydrochloride 5 MG Oral Tablet 10/23/2019 12:00:00 AM EST eCW1 ([facility]) Oxycodone Hydrochloride 5 MG Oral Tablet 09/10/2019 12:00:00 AM EST eCW1 ([facility])
--- OUTSIDE RECORDS SUMMARY | 2020-10-15 06:21 | CCD ---
Author Author [facility] Organization [facility] Address Unknown Phone Unavailable Care Team Providers Care Drywall Worker Name Role Phone Leonides Sheffield Unavailable PROBLEMS Type Condition ICD9-CM Code [id number] Code Onset Dates Condition S tatus SNOMED Code Notes Problem Chronic prescription opiate use Z79.899 Active 265700056 Problem Myalgia M79.1 Active 78326263 Problem Lumbar post-laminectomy syndrome M96.1 Active 086535810 Problem Hematuria 599.70 Active 25466073 Problem Preop testing Z01.818 Active 579093833 Problem Lumbar radiculopathy M54.16 Active 300556370 Problem Renovascular hypertension I15.0 Active 939790 005 Problem Hematuria - Gross 599.71 Active 139871167 Problem Lumbar Facet arthropathy M47.816 Active 5559403 08 Problem Spondylosis of lumbar region without myelopathy or radiculopathy M47.816 Active 82775364 Problem Spondylosis of lumbosacral region without myelop athy or radiculopathy M47.817 Active 77778368 Problem Atrophic kidney, acquired N26.1 Active 611397 005 ALLERGIES Allergen (clinical drug ingredient) Drug/Non Drug Allergy do cumented on EMR Reaction Allergy Type Onset Date Status cephalexin Keflex(NDC Code:[address]-15) Rash and Hives Drug Allergy Active acetaminophen / oxycodone Percocet Itching Drug Allergy Inactive sulfamethoxazole / trimethoprim Bactrim DS(NDC Code:[address]-9 1) Dyspnea Drug Allergy Active adhesive on med patches Rash Non Drug Allergy Active ENCOUNTERS from 1971 to 2020-09-10 Encounter Location Date Provider Diagnosis [facility] [address] [place] [id number] Aug, Leonides Sheffield IMMUNIZATIONS No Information SOCIAL HISTORY Sex Assigned At : Social History Observation Description Sex Assigned At Unknown Language: Question Answer Notes Languages spoken: Hungarian Jain: Question Answer Notes Jain 08 Quaker Alcohol Screening: Question Answer Notes Did you [...] meals Orally Three times a day Not-Taking [place] 10-325 MG 1 tablet as needed [...] Once a day for 30 day(s) 11 2015 Not-Taking Tramadol HCl 50 MG 1 [...] Information RESULTS No Results REASON FOR VISIT PATIENT CONCERNS MEDICAL (GENERAL) HISTORY Type Description Date Medical [...] Provider Name:Leonides Sheffield, 2020-10-28 01:45:00 PM, [address] [place], [address], Insurance Providers Payer Name Payer Address Payer Phone Insured Name Patient Relati onship to Insured Coverage Start Date Coverage End Date [facility] [address] [facility] 2 [phone] ELI TURCIOS 2016 2016
[2020-10-15] MEDS ORDERED: VANCOMYCIN HCL 1,000 MG, VIAL MATE ADAPTER 1 EACH in D5W 250 ML IV ONE (07:00)
[2020-10-15] MEDS ORDERED: fentaNYL 250 MCG/5 ML INJECTION (J3010) As Ordered ONE (07:03)
[2020-10-15] MEDS ORDERED: MIDAZOLAM INJ 2MG/2ML VIAL (J2250 PER 1MG) As Ordered ONE (07:03)
[2020-10-15] MEDS ORDERED: ONDANSETRON 4MG/2ML VIAL As Ordered ONE (07:04)
[2020-10-15] MEDS ORDERED: dexameTHASONE 4 MG/ML 1ML VIAL (J1100 PER 1MG) As Ordered ONE (07:04)
[2020-10-15] MEDS ORDERED: ROCURONIUM BROMIDE 50 MG/5 ML VIAL As Ordered ONE ×2 (07:05→12:06)
[2020-10-15] MEDS ORDERED: ACETAMINOPHEN 1000MG 100ML IV BTL (OFIRMEV) (J0131 PER 10MG) As Ordered ONE (07:05)
[2020-10-15] MEDS ORDERED: SUGAMMADEX SODIUM 500 MG/5 ML VIAL (BRIDION) As Ordered ONE (07:05)
[2020-10-15] MEDS ORDERED: ePHEDrine SULFATE 25 MG/5 ML(5MG/ML) SYRINGE As Ordered ONE (07:05)
[2020-10-15] MEDS ORDERED: propofoL 200 MG/20 ML VIAL As Ordered ONE (07:05)
[2020-10-15] MEDS ORDERED: PHENYLephrine 500MCG 5ML (100MCG/ML) SYRINGE As Ordered ONE (07:05)
[2020-10-15] MEDS ORDERED: LIDOCAINE 2% 100MG/5ML SDV (FOR ANES.) As Ordered ONE (07:05)
[2020-10-15] MEDS ORDERED: LIDOCAINE 1% SDV 30ML VIAL As Ordered ONE (07:11)
[2020-10-15] MEDS ORDERED: BUPIVACAINE HCL 0.25% 30ML VIAL As Ordered ONE (07:11)
[2020-10-15] MEDS ORDERED: NS 1,000 ML IV SCH (07:31)
[2020-10-15] MEDS ORDERED: LABETALOL 100MG/20ML VIAL As Ordered ONE ×2 (07:37→13:59)
[2020-10-15] MEDS ORDERED: ACETAMINOPHEN TAB 650MG DOSE (2X325MG) PO PRN (07:45)
[2020-10-15] MEDS ORDERED: PERCOCET 5MG/325MG TAB PO PRN ×2 (07:45→14:15)
[2020-10-15] MEDS ORDERED: ONDANSETRON 4MG/2ML VIAL IV PRN ×2 (07:45→14:15)
[2020-10-15] MEDS: **hydrALAZINE** 50 MG TAB PO SCH ×2 (09:00→22:30)
[2020-10-15] MEDS: DOCUSATE SODIUM 100MG CAPSULE PO SCH ×2 (09:00→20:42)
[2020-10-15] MEDS: cloNIDine 0.1MG TABLET PO SCH ×4 (09:00→22:31)
[2020-10-15] MEDS ORDERED: HYDROmorphone HCL 2 MG/ML 1ML VIAL (J1170) As Ordered ONE (09:51)
[2020-10-15] MEDS: LABETALOL 100MG/20ML VIAL IV SCH ×18 (14:03→16:45)
[2020-10-15] MEDS ORDERED: fentaNYL 100 MCG/2 ML INJECTION (J3010) As Ordered ONE (14:03)
[2020-10-15] MEDS: fentaNYL 100 MCG/2 ML INJECTION (J3010) IV PRN ×4 (14:05→14:20)
[2020-10-15] MEDS ORDERED: LR 1,000 ML IV SCH (14:15)
[2020-10-15] MEDS ORDERED: METOCLOPRAMIDE INJ 10MG/2ML VIAL (J2765 PER 1) IV PRN (14:15)
[2020-10-15 14:34] LABS: HEMATOCRIT 40.1 % (36.0-47.0); HEMOGLOBIN 12.3 g/dl (12.0-15.5); MEAN CORPUSCULAR HEMOGLOBIN 27.6 pg (27.0-33.0); MEAN CORPUSCULAR HGB CONC 30.7 g/dl (32.0-36.5); MEAN CORPUSCULAR VOLUME 90.1 fl (80.0-96.0); PLATELET COUNT, AUTOMATED 215 10^3/uL (150-450); RED BLOOD COUNT 4.45 10^6/uL (4.00-5.40); WHITE BLOOD COUNT 11.4 10^3/uL (4.0-10.0)
[2020-10-15] MEDS: HYDROMORPHONE HCL 0.5 MG/ 0.5 ML SYRINGE (J1170 PER 1) IV PRN ×2 (14:35→14:45)
[2020-10-15 15:00] LABS: BLOOD UREA NITROGEN 12 MG/DL (7-18); CALCIUM LEVEL 8.7 MG/DL (8.5-10.1); CARBON DIOXIDE LEVEL 25 MEQ/L (21-32); CHLORIDE LEVEL 102 MEQ/L (98-107); CREATININE FOR GFR 0.84 MG/DL (0.55-1.30); GLOMERULAR FILTRATION RATE > 60.0 (>58); GLUCOSE, FASTING 194 MG/DL (70-100); SODIUM LEVEL 137 MEQ/L (136-145)
[2020-10-15] MEDS ORDERED: GENTAMICIN 80 MG in IV 1 EA IV SCH (16:00)
[2020-10-15] MEDS: MORPHINE 2 MG/ML 1ML VIAL (J2270) IV PRN ×2 (18:09→23:45)
[2020-10-15] MEDS: GENTAMICIN 80 MG in IV 1 EA IV SCH (18:10)
--- NOTE | 2020-10-15 18:12 | ROOPDOC ---
[facility] Report Of Operation Report of Operation DATE OF PROCEDURE: 10/15/20 PREPROCEDURE DIAGNOSIS: Left Atrophic Kidney. POSTPROCEDURE DIAGNOSIS: Left Atrophic Kidney. PROCEDURE: Left robotic-assisted laparoscopic radical nephrectomy (adrenal- sparing). SURGEON: Timothy Arcos MD PIN SORTER AND BAGGER: Jina Russell ANESTHESIA: General OPERATIVE INDICATIONS: This is a 50-year-old female with an difficult to control hypertension which is thought to be secondary to her atrophic left kidney. It was recommended that she undergo the above procedure for treatment to help better control her hypertension. DESCRIPTION OF PROCEDURE: The patient was brought to the operating room where general anesthesia was induced. Prophylactic antibiotics were infused. A Sandoval catheter was placed under sterile conditions. Next, the patient was placed in the right lateral decubitus position. All pressure points were appropriately padded and an axillary roll was placed. We then secured the patient to the table with tape. Her abdomen was then prepped and draped in the usual sterile fashion. Next, an 8 mm incision was made in line with the 11th rib along the lateral border of the rectus. Pneumoperitoneum was achieved with a Veress needle. Next, an 8mm port was placed for the camera. At this point, an 8 mm robotic port was placed off the costal margin for the left robotic arm. Then two right hand robotic ports were placed with one between the anterior superior iliac spine and the hip and the other one just caudal to the camera port. The one just caudal to the camera port was a 12mm robotic port. Last the 15 mm materials assistant port was placed inferior and medial to the camera port. The robot was then docked. Attachments between the spleen and the Gerota's fascia were then released. The left colon was then mobilized medially. At this point, after mobilizing the left colon completely, we then developed a plane onto the psoas muscle off the lower pole of the kidney. The left gonadal vein was identified and was carried cephalad until the left renal vein was encountered. Just posterior to the vein 2 renal arteries were identified. The renal vein was then carefully dissected. It was then ligated with a robotic vascular load stapler and transected. The renal arteries were carefully dissected and of note, they were very scarred down due previous angioembolization of the kidney. Metal clips could be seen in the arteries. The arteries were then ligated with 3 Weck clips and then transected in between, leaving 2 Weck clips on the stay side. The kidney was then mobilized and on all sides. The adrenal gland was dissected off and spared. The ureter was then ligated with Weck clips and transected in between. The kidney was then completely free. At this point, we checked for hemostasis and hemostasis appeared excellent. Estee hemostatic agent was applied over the hilum. We then placed the left lashay de la fuente in a large EndoCatch bag. This bag was closed and then left for future retrieval. We then undocked the robot and a Williams fascial closure device was utilized to place a 0-vicryl suture through the fascia of the 15mm port site. We then extended the incision of the 12mm right hand robotic port site to extract the specimen. We then dissected down through the musculofascial layers and extended the fascia. The muscle was bluntly spread, and we then extracted the specimen through this incision. Once that was done, we checked for hemostasis through the extraction incision and it appeared excellent. The fascia of this incision was then closed with a running #0 Vicryl suture. At this point, the abdomen was then reinsufflated. We looked at the extraction incision, and there was no active bleeding and no abdominal contents were caught within the suture. Once this was done, all the remaining ports were removed and there was no bleeding. We then tied down the #0 Vicryl suture in the 15mm port site. Once this was done, all wounds were thoroughly irrigated. The subcutaneous fat of the extraction incision was then closed with interrupted #3-0 Vicryl sutures. We then closed the skin of all incisions using subcuticular #4-0 Monocryl suture. Local anesthetic was then applied and then Dermabond was applied and marked the conclusion of the procedure. The patient was then taken out of the right lateral decubitus position, awakened from anesthesia and transported to the recovery room in stable condition. ESTIMATED BLOOD LOSS: 75mL. COMPLICATIONS: None. SPECIMENS: Left kidney. PLAN: The patient will be admitted to the hospital postoperatively for monitoring and discharged once his pain is controlled and her kidney function is stable. TIMOTHY ARCOS MD Oct 15, 2020 07:57
[2020-10-15] MEDS ORDERED: VANCOMYCIN HCL 1,000 MG, VIAL MATE ADAPTER 1 EACH in D5W 250 ML IV SCH (20:00)
[2020-10-15] MEDS ORDERED: METOPROLOL SUCC (TopROL XL) 100MG *XL* TAB PO SCH (21:00)
[2020-10-15] MEDS: PERCOCET 5MG/325MG TAB PO PRN (22:39)
[2020-10-16] MEDS ORDERED: UNRESOLVED PATIENT OWN MED ORDER XX SCH (00:01)
[2020-10-16 02:00] VITALS: BP 114/68
[2020-10-16] MEDS: GENTAMICIN 80 MG in IV 1 EA IV SCH (03:05)
[2020-10-16] MEDS: PERCOCET 5MG/325MG TAB PO PRN ×3 (03:06→13:46)
[2020-10-16] MEDS: MORPHINE 2 MG/ML 1ML VIAL (J2270) IV PRN ×2 (04:04→09:44)
[2020-10-16 06:00] VITALS: BP 112/56
[2020-10-16 06:37] LABS: HEMATOCRIT 33.4 % (36.0-47.0); MEAN CORPUSCULAR HGB CONC 29.6 g/dl (32.0-36.5); MEAN CORPUSCULAR VOLUME 91.3 fl (80.0-96.0); PLATELET COUNT, AUTOMATED 225 10^3/uL (150-450); RED BLOOD COUNT 3.66 10^6/uL (4.00-5.40); WHITE BLOOD COUNT 8.8 10^3/uL (4.0-10.0)
[2020-10-16 06:48] LABS: HEMOGLOBIN 9.9 g/dl (12.0-15.5)
[2020-10-16 07:00] LABS: BLOOD UREA NITROGEN 10 MG/DL (7-18); CARBON DIOXIDE LEVEL 27 MEQ/L (21-32); CHLORIDE LEVEL 104 MEQ/L (98-107); CREATININE FOR GFR 0.69 MG/DL (0.55-1.30); GLOMERULAR FILTRATION RATE > 60.0 (>58); GLUCOSE, FASTING 99 MG/DL (70-100); POTASSIUM SERUM 3.8 MEQ/L (3.5-5.1); SODIUM LEVEL 138 MEQ/L (136-145)
[2020-10-16] MEDS ORDERED: cloNIDine 0.1MG TABLET PO SCH (09:00)
[2020-10-16] MEDS ORDERED: ENTER DRUG NAME HERE (PATIENT'S OWN MED) PO SCH (09:00)
[2020-10-16] MEDS ORDERED: SPIRONOLACTONE 25 MG TAB PO SCH (09:00)
[2020-10-16] MEDS: **hydrALAZINE** 50 MG TAB PO SCH (09:00)
--- NOTE | 2020-10-16 09:37 | IPNPDOC ---
Subjective Review oF Systems Chief Complaint The patient is a 50-year-old female admitted with a reason for visit of [facility] Kidney. Events since Last Encounter No acute events o/n. Pain controlled. No n/v. No f/c/ns. Objective Physical Examination General Exam: Alert, Cooperative, No Acute Distress ABDOMEN EXAM: Soft, Tenderness (mild), Other (incisions clean/dry/intact) Skin Exam: Nl turgor and temperature Neuro Exam: Normal Speech Psych Exam: Mental status NL, Mood NL Other physical findings catheter draining clear yellow urine Vital Signs/I&O Vital Signs Date Time Temp Pulse Resp B/P (MAP) Pulse Ox O2 Delivery O2 Flow Rate FiO2 10/16/20 08:01 19 Room Air 10/16/20 06:00 98.2 83 112/56 (74) 98 10/15/20 14:20 10 I&O- Last 24 Hours up to 6 AM 10/16/20 05:59 Intake Total 4415 ml Output Total 1575 ml Balance 2840 ml Laboratory Data Labs 24H Laboratory Tests 2 10/15/20 14:14: Nucleated Red Blood Cells % (auto) 0.0, Anion Gap 10, Glomerular Filtration Rate > 60.0, Calcium Level 8.7 10/16/20 05:31: Nucleated Red Blood Cells % (auto) 0.0, Anion Gap 7L, Glomerular Filtration Rate > 60.0, Calcium Level 9.0 CBC/BMP Laboratory Tests 10/15/20 14:14 10/16/20 05:31 Assessment/Plan Date Seen The patient was seen on 10/16/20. Patient Summary This is a 50 y/o F POD1 s/p L robotic simple nephrectomy. The patient is doing well. Cr stable. Good UOP. Hb down some this morning. BP has been w/i normal limits w/o any BP meds postop. Plan/VTE VTE Prophylaxis Ordered?: Yes VTE Exclusion Mechanical Proph: N/A:VTE Prophy Ordered Plan/Urinary Catheter Urinary Catheter: D/C Sandoval Plan - d/c Sandoval - d/c IVF - percocet prn pain - nephrology consulted re BP meds as she most if not all might not be necessary on discharge - strict I/Os - ambulate - SCDs when in bed - incentive spirometry - advance diet as tolerated - anticipate discharge home tomorrow TIMOTHY ARCOS MD Oct 16, 2020 09:36
[2020-10-16] MEDS: DOCUSATE SODIUM 100MG CAPSULE PO SCH (09:45)
[2020-10-16 10:00] VITALS: BP 113/64
[2020-10-16 12:42] LABS: HEMATOCRIT 35.6 % (36.0-47.0); HEMOGLOBIN 10.7 g/dl (12.0-15.5)
[2020-10-16 14:00] VITALS: BP 134/79
[2020-10-16] MEDS ORDERED: DOK1CAP7 PO (15:25)
--- NOTE | 2020-10-16 15:46 | CR ---
NEPHROLOGY CONSULTATION DATE: 10/16/20 REQUESTING CLINICIAN: Pedro Moon MD. REASON FOR CONSULTATION: To assist in the management of hypertension post-operatively following a nephrectomy. HISTORY OF PRESENT ILLNESS: Ms. Alcala is a 50-year-old female with known history of difficult to control hypertension and has been on multiple anti-hypertensive medications. She is followed in my office for her uncontrolled hypertension and we felt that her hypertension was probably related to ischemic kidney. She has a prior history of embolization of her kidneys a few years ago. Since then she has developed uncontrolled hypertension. her kidney function has been relatively stable; however, blood pressure control has been quite difficult due to which we felt that ___ small ischemic kidney on the left side should be removed and see how she does with her hypertension as patient did not have history of hypertension prior to embolization of her left kidney. She underwent a robotic assisted left nephrectomy yesterday and her blood pressure has been about 110 mmHg. Her medications have been mostly on-hold. I was asked to see her and address her anti-hypertensive medications. PAST MEDICAL/SURGICAL HISTORY: Significant for: 1. History of atrophic left kidney status post embolization a few years ago. 2. Uncontrolled hypertension. 3. Hypercholesterolemia. 4. Mild chronic kidney disease. ALLERGIES: 1. SULFA. 2. VANCOMYCIN. 3. CEPHALOSPORINS. MEDICATIONS: Home medications include: 1. Metoprolol 200 mg daily. 2. Tekturna 300 mg daily. 3. Clonidine 0.3 mg three times a day. 4. Hydralazine 50 mg twice a day. 5. Spironolactone 25 mg daily. 6. Tramadol 50 mg p.r.n. for headache. PERSONAL AND SOCIAL HISTORY: Patient is and lives with her . She does not smoke or drink. She is currently not working due to her medical condition. FAMILY HISTORY: Negative for any renal problems. REVIEW OF SYSTEMS: Patient has history of frequent and severe headaches with uncontrolled hypertension. This morning she reports no headache. Ears, nose and throat: Unremarkable. Cardiovascular system: Negative for dyspnea or chest pain. She has uncontrolled hypertension history which has dramatically improved following her left nephrectomy. Respiratory system: Negative for hemoptysis or pleuritic type of chest pain. GI system: Negative for nausea, vomiting or diarrhea. system: Negative for dysuria or hematuria. She has been treated for a UTI in the past. Musculoskeletal system: Negative for any leg edema or arthralgias. Skin: Negative for rash or ulcers. Neurological system: Negative for seizures or stroke. Hematological system: Negative for any pulmonary function technologist anticoagulation. PHYSICAL EXAMINATION: Temperature 99.4 degrees Fahrenheit, heart rate 92 per minute and respiratory rate 16 per minute. Blood pressure 113/64 mmHg and oxygen saturation 97% on room air. Head: Atraumatic. Neck: Supple and without JVD or thyroid enlargement. Heart: Sounds are regular. Lungs: Clear to auscultation. Abdomen: Soft and minimal tenderness is present due to recent surgery. Dressings are intact. Extremities: No cyanosis or clubbing. Skin: No rashes or ulcers. Neurologically: She is awake, alert and oriented times 3. LABORATORY DATA: Her laboratory data showed WBC count 11.4 yesterday, hemoglobin 12.3 and hematocrit 40. Today her WBC count is 8.8, hemoglobin 9.9, hematocrit 33.4 and platelets 225. Sodium 138, potassium 3.8, CO2 27, BUN 10, creatinine 0.69, glucose 99 and calcium 9. PROBLEMS AND PLAN: 1. Uncontrolled hypertension: Blood pressure control has improved dramatically following removal of ischemic left kidney. Most likely her hypertension was caused by ischemic kidney and this was the main reason for her surgery. She has been on multiple anti-hypertensive meds in high dose and still her blood pressure was running in the 200s. Now without any medication for the last 24 hours her blood pressure is still less than 120. I have advised the patient to hold all medications and take only metoprolol 100 mg daily if her blood pressure goes above 120. If metoprolol alone does not control her blood pressure then she can take clonidine 0.1 mg as needed for systolic blood pressure above 120 mmHg. She should continue to hold the rest of her medications. She has been monitoring her blood pressure at home and will continue to do so. She will follow up in my office within the next couple of weeks for further adjustments if needed. 2. Chronic kidney disease: She has mild chronic kidney disease with a well functioning right kidney. Her left kidney was non-functioning so removing the left kidney did not affect her kidney function at all. 3. Anemia: Most likely this is hemodilutional effect due to I.V. fluids. It is likely to remain stable. 4. Disposition: From a renal standpoint patient can be discharged to home when she is stable from the surgical standpoint and will follow up in my office in the next couple of weeks. Thank you for involving me in the care of Ms. Alcala. She will follow up in my office as stated above.
--- NOTE | 2020-10-16 17:22 | DSES ---
DISCHARGE SUMMARY DATE OF ADMISSION: 10/15/2020 DATE OF DISCHARGE: 10/16/2020 ADMISSION DIAGNOSIS: Atrophic left kidney. DISCHARGE DIAGNOSIS: Atrophic left kidney. ADMITTING PHYSICIAN: Pedro Moon MD DISCHARGING PHYSICIAN: Pedro Moon MD PROCEDURE(S) PERFORMED: Left robotic-assisted laparoscopic simple nephrectomy on 10/15/2020 HISTORY OF PRESENT ILLNESS: This is a 50-year-old female with an atrophic left kidney, which was thought to cause difficult to control hypertension. She was brought to the operating room for the above listed procedure for treatment and admitted postoperatively. HOSPITAL COURSE: The patient was admitted to the hospital after undergoing a left robotic simple nephrectomy. Her postoperative course was unremarkable. Of note immediately after surgery, her blood pressure remained within normal range with systolic getting no higher than 110s. Of note, her systolic blood pressure typically runs in the 180s on her four blood pressure medications. We therefore, did not have to administer any blood pressure medication while she was in the hospital. By postoperative day one, she was ambulating well with good pain control. Her diet was advanced and she tolerated a regular diet. Her catheter was removed and she voided without difficulty. We did recheck her hemoglobin level in the afternoon of postoperative day one as it did drop to 9.9 from 12.3 postoperatively on her morning check. The recheck at noon was stable at 10.7. DISPOSITION: Since the patient was doing well, she was deemed ready for discharge home. She was discharged home with the plan for her to follow-up in the urology clinic in approximately two weeks for a postoperative visit. She was also asked to set up a follow-up appointment with nephrology, as she likely will no longer need to be on her blood pressure medications. CHELSEA
== END 2020-10-16 16:24 | disposition home or self-care (01) | DRG 661 ==
LOC: M OR 06:15 → M MSPAV 16:23
PROVIDERS: ADMIT Urology; ATTEND Urology
PROC: 8E0W4CZ Robotic Assisted Procedure of Trunk Region, Percutaneous Endoscopic Approach (ICD-10-PCS; 2020-10-15)
PROC: 0TT14ZZ Resection of Left Kidney, Percutaneous Endoscopic Approach (ICD-10-PCS; principal; 2020-10-15 07:30)
DX: N26.1 Atrophy of kidney (terminal) (principal); I12.9 Hypertensive chronic kidney disease with stage 1 through stage 4 chronic kidney disease, or unspecified chronic kidney disease; E78.00 Pure hypercholesterolemia, unspecified; Z88.2 Allergy status to sulfonamides; Z88.8 Allergy status to other drugs, medicaments and biological substances; Z79.899 Other long term (current) drug therapy; N18.9 Chronic kidney disease, unspecified; D64.9 Anemia, unspecified

== ENCOUNTER → 2020-12-22 | Outpatient (CLI) | payer OTHER ==
[~2020-12-22] MED LIST changes: +DOK1CAP7 PO; -GENTAMICIN 80 MG in IV 1 EA IV ONE; -LR 1,000 ML IV ONE
--- NOTE | 2020-12-24 00:49 | ECWPNPC ---
PATIENT NAME: RITU TURCIOS : 1970 GENDER: FEMALE VISIT DATE: 12/22/2020 DISCHARGE DATE: 12/22/20 1149 VISIT LOCKED DATE TIME: PHYSICIAN: LIDIA KHAN RESOURCE: LIDIA KHAN REASON FOR APPOINTMENT 1. CHRONIC LOW BACK PAIN HISTORY OF PRESENT ILLNESS DEPRESSION SCREENING: PHQ-2 (2015 EDITION) LITTLE INTEREST OR PLEASURE IN DOING THINGS?NOT AT ALL FEELING DOWN, DEPRESSED, OR HOPELESS?NOT AT ALL TOTAL SCORE0 50-YEAR-OLD FEMALE IN FOR CHRONIC PAIN FOLLOW-UP. SHE RATES HER PAIN CURRENTLY AT A 7 OUT OF 10 AND DESCRIBES IT CONTINUOUS AND SHARP. PATIENT FEELS HER MEDICATIONS ARE HELPFUL AND DENIES MED SIDE EFFECTS AT THIS TIME. GENERAL: -. FALL RISK SCREENING: SCREENING : NO FALLS REPORTED IN THE LAST YEAR. PAIN SCREENING: PATIENT HAS A COMPLAINT OF ACUTE OR CHRONIC PAIN :YES LOCATION OF PAIN:LOW BACK INTENSITY OF PAIN (SCALE OF 1 TO 10):7 WHAT DOES YOUR PAIN FEEL LIKE:CONTINOUS, SHARP DURATION:CONTINOUS, CONSTANT, AWAKENS FROM SLEEP PAIN IS INCREASED BY:ACTIVITIES, PROLONGED STANDING PAIN IS DECREASED BY:USE OF PAIN MEDICATIONS, OTHERS LAYING DOWN HELPS BRIEFLY NURSING NOTE: -. PAIN CENTER INTAKE QUESTIONS: DO YOU HAVE A HISTORY OF MRSA? :NO DO YOU TAKE A BLOOD THINNERS? :NO DO YOU HAVE ANY BLEEDING DISORDERS? :NO ANY NEW NUMBNESS OR WEAKNESS IN YOUR LEGS OR ARMS? :NO ANY PACEMAKER,DEFIBRILLATOR, OR DORSAL COLUMN STIMULATOR? :NO DO YOU HAVE ANY RASHES OR OPEN SORES? :NO ARE YOU ALLERGIC TO IV DYE? :NO ARE YOU DIABETIC? :NO ANY NEW PROBLEMS WITH YOUR MEDICATIONS? :NO HAVE YOU RECEIVED A VACCINE IN THE PAST 30 DAYS? :NO DO YOU PLAN TO RECEIVE A VACCINE IN THE NEXT 21 DAYS? :YES DO YOU NEED ANY PRESCRIPTION? :YES TRAMADOL AND OXYCODONE DO YOU TAKE ANY IMMUNOSUPPRESSIVE MEDICATIONS? :NO IS THERE A CHANCE YOU COULD BE ? :NO ARE YOU BREAST FEEDING? :NO CURRENT MEDICATIONS TAKING CLONIDINE HCL 0.2 MG TABLET 1 TABLET ORALLY TID TAKING HAIR SKIN AND NAILS FORMULA - TABLET DIRECTED ORALLY TAKING TRAMADOL HCL 50 MG TABLET 1 TABLET NEEDED ORALLY EVERY 6 HRS PRN PAIN MDD=4 TAKING LOSARTAN POTASSIUM 50 MG TABLET 1 TABLET ORALLY ONCE A DAY NOT-TAKING HYDRALAZINE HCL 100 MG TABLET TABLET WITH FOOD ORALLY THREE TIMES A DAY AND A PRN DOSE NOT-TAKING TEKTURNA HCT 300-25 MG TABLET 1 TABLET ORALLY ONCE A DAY NOT-TAKING METOPROLOL SUCCINATE ER 100 MG TABLET EXTENDED RELEASE 24 HOUR 1 TABLET ORALLY BID UNKNOWN SPIRONOLACTONE 25 MG TABLET 1 TABLET ORALLY TWICE A DAY, NOTES: NONE LATELY UNKNOWN TIZANIDINE HCL 2 MG TABLET 1 TABLET ORALLY THREE TIMES A DAY FOR MUSCLE SPASMS, NOTES: NONE LATELY UNKNOWN OXYCODONE HCL 5 MG TABLET 1 TABLET NEEDED ORALLY FOR PAIN EVERY 12 HRS MDD2 UNKNOWN CARISOPRODOL 350 MG TABLET 1 TABLET NEEDED ORALLY DAILY PRN SPASM MDD=1 UNKNOWN MOBIC 15 MG TABLET 1 TABLET ORALLY ONCE A DAY UNKNOWN CLONIDINE 0.1 MG/24HR PATCH WEEKLY 1 PATCH TO SKIN TRANSDERMAL UNKNOWN HYDROCODONE-ACETAMINOPHEN 5-300 MG TABLET 1 TABLET NEEDED ORALLY FOR PAIN EVERY 12 HRS MDD2, NOTES: NONE LATELY UNKNOWN LOSARTAN POTASSIUM 100 MG TABLET 1 TABLET ORALLY ONCE A DAY UNKNOWN PYRIDIUM 200 MG TABLET 1 TABLET AFTER MEALS ORALLY THREE TIMES A DAY UNKNOWN GABAPENTIN 100 MG CAPSULE 1 CAPSULE ORALLY FOR PAIN THREE TIMES A DAY UNKNOWN NORCO 10-325 MG TABLET 1 TABLET NEEDED ORALLY EVERY 6 HRS PRN SEVERE PAIN MDD=2 UNKNOWN VESICARE 10 MG TABLET 1 TABLET ORALLY ONCE A DAY UNKNOWN PREDNISONE 10 MG TABLET 1 TABLET ORALLY TAKE 4 TAB X 3 DAY, 3 TAB X 3 DAY, 2 TABX 3 DAY 1 TAB X 3 DAYS MEDICATION LIST REVIEWED AND RECONCILED WITH THE PATIENT PAST MEDICAL HISTORY HEMATURIA KIDNEY STONES CHRONIC BACK PAIN - WITH DORSAL STIMULATOR IMPLANT, REMOVED 2016 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 LATEX QUESTIONNAIRE LATEX ALLERGY : HAVE YOU EVER DEVELOPED ANY TYPE OF REACTION AFTER HANDLING LATEX PRODUCTS SUCH RUBBER GLOVES, CONDOMS, DIAPHRAGMS, BALLOONS, SOCKS, OR UNDERWEAR?NO LATEX ALLERGY : HAVE YOU EVER DEVELOPED ANY TYPE OF REACTION DURING OR AFTER DENTAL APPOINTMENT, VAGINAL/RECTAL EXAMINATION, SURGICAL PROCEDURE, OR ANY OTHER EXPOSURE?NO LATEX RISK : HAVE YOU EVER HAD ANY DIFFICULTY BREATHING OR HIVES AFTER EATING OR HANDLING ANY FRUITS, OR VEGETABLES; SUCH KIWI, BANANAS, STONE FRUITS, OR CHESTNUTSNO LATEX RISK : DO YOU HAVE A PREVIOUS PERSONAL HISTORY OF MORE THAN NINE SURGERIES, SPINA BIFIDA, OR REPEATED CATHERIZATIONS? NO LATEX RISK : ARE YOU FREQUENTLY EXPOSED TO LATEX PRODUCTS IN YOUR OCCUPATION?NO DATE ASKED : 12/22/2020 ALCOHOL USE: NO. ALCOHOL SCREENING DID YOU HAVE A DRINK CONTAINING ALCOHOL IN THE PAST YEAR?YES HOW OFTEN DID YOU HAVE SIX OR MORE DRINKS ON ONE OCCASION IN THE PAST YEAR?NEVER (0 POINTS) HOW MANY DRINKS DID YOU HAVE ON A TYPICAL DAY WHEN YOU WERE DRINKING IN THE PAST YEAR?1 OR 2 (0 POINTS) HOW OFTEN DID YOU HAVE A DRINK CONTAINING ALCOHOL IN THE PAST YEAR?MONTHLY OR LESS (1 POINT) POINTS1 INTERPRETATIONNEGATIVE RECREATIONAL DRUG USE DRUG USE?NO CONFUCIANISM [id number] [place] LANGUAGE LANGUAGES SPOKEN:TURKMEN LEARNING BARRIERS / SPECIAL NEEDS CHANGE FROM LAST VISIT?NO BARRIERS TO LEARNING?NO HEARING IMPAIRED?NO VISION IMPAIRED?YES :CORRECTIVE LENSES COGNITIVELY IMPAIRED?NO READINESS TO LEARN?YES LEARNING PREFERENCES?NO LEARNING CAPABILITIES PRESENT?YES EMOTIONAL BARRIERS?NO SPECIAL DEVICES?NO INFORMATION SECURITY ANALYST NEEDED?NO OCCUPATION: AT HOME. DIET: REGULAR. EXERCISE: NO REGULAR EXERCISE. MARITAL STATUS: . TODAY'S VISITNOTES FROM 0-10, WHAT LEVEL IS YOUR PAIN TODAY?7 - PFS REFERRAL NEEDED?NO CLERGY REFERRAL NEEDED?NO PUBLIC HEALTH REFERRAL NEEDED?NO WAS THE PROVIDER NOTIFIED OF ANY PERTINENT INFO?YES HAS THE PATIENT BEEN EDUCATED REGARDING HIS/HER PLAN OF CARE?YES HAS THE PATIENT BEEN EDUCATED REGARDING PAIN, THE RISK FOR PAIN, THE IMPORTANCE OF EFFECTIVE PAIN MANAGEMENT, AND THE PAIN ASSESSMENT PROCESS?YES ADVANCE DIRECTIVE ADVANCE DIRECTIVE DISCUSSED WITH PATIENT:YES DECLINED INFORMATION OR ASSISTANCE AT THIS TIME 09/27/2019 HOSPITALIZATION/MAJOR DIAGNOSTIC PROCEDURE SURGERIES REVIEW OF SYSTEMS CONSTITUTIONAL: ANY RECENT FEVER NO . CHILLS NO . WEIGHT CHANGE OF UNKNOWN REASONS NO . GASTROENTEROLOGY: NEW UNEXPLAINABLE CHANGES IN BOWEL CONTROL NO . CONSTIPATION NO . GENITOURINARY: ANY NEW CHANGE IN BLADDER CONTROL? NO . NEUROLOGY: NEW ONSET DIZZINESS OR NEUROLOGICAL CHANGES NOT MENTIONED NO . NEW NUMBNESS OR PAIN PATTERNS NOT MENTIONED AND PERTINENT TO TODAY'S VISIT NO . CARDIOLOGY: NEW CHEST PRESSURE NO . PATIENT DENIES NO . RESPIRATORY: UNEXPLAINABLE COUGH NO . NEW SHORTNESS OF BREATH NO . VITAL SIGNS WT 161.8 LBS, HT 5'1", BMI 30.57 INDEX, BP 162/77 MM HG, HR 91 /MIN, RR 18 /MIN, TEMP 97.4 F, OXYGEN SAT % 100%, SAFE IN ENV? (Y/N) YES, NA INITIALS AW 1125, REVIEWED BY: DOLORES DE SOUZA MA. EXAMINATION GENERAL EXAMINATION: GENERALNO ACUTE DISTRESS, WELL NOURISHED AND HYDRATED. PSYCHAPPROPRIATE MOOD AND AFFECT . LUNGS:CLEAR TO AUSCULTATION BILATERALLY, NO WHEEZES, RHONCHI, RALES. HEART:NO MURMURS, REGULAR RATE AND RHYTHM. ASSESSMENTS LUMBAR POST-LAMINECTOMY SYNDROME - M96.1 (PRIMARY), RISK: (NULL) CHRONIC PRESCRIPTION OPIATE USE - Z79.891 TREATMENT LUMBAR POST-LAMINECTOMY SYNDROME CONTINUE OXYCODONE HCL TABLET, 5 MG, 1 TABLET NEEDED, ORALLY FOR PAIN, EVERY 12 HRS MDD2, 30 DAYS, 55, REFILLS 0 CONTINUE TRAMADOL HCL TABLET, 50 MG, 1 TABLET NEEDED, ORALLY, EVERY 6 HRS PRN PAIN MDD=4, 30 DAY(S), 120, REFILLS 0 NOTES: 50-YEAR-OLD FEMALE IN FOR CHRONIC PAIN FOLLOW-UP. GIVEN PRESENTING SYMPTOMS RECOMMENDED CONTINUATION OF CURRENT MEDICATION REGIMEN WITH FOLLOW-UP IN 3 MONTHS. PATIENT HAS EXPRESSED UNDERSTANDING OF AND WAS IN AGREEMENT WITH TREATMENT PLAN. GIVEN TIME TO ASK QUESTIONS AND EXPRESS CONCERNS. , ISTOP REGISTRY REVIEWED AND DEMONSTRATES COMPLLIANCE. (REF # [id number] ) BRINGS IN MEDICATIONS WHICH IS APPROPRIATE FOR WHAT WAS DISPENSED. RECENT URINE TOXICOLOGY REVIEWED. NO UNAUTHORIZED MEDICATIONS. NO ILLICIT SUBSTANCES AND PRESCRIBED MEDICATIONS WERE PRESENT. CHRONIC PRESCRIPTION OPIATE USE LAB: [facility] 12/22/2020 11:44:57 AM > LAST DOSE: TRAMADOL 12/21/2020 @9:30 PROCEDURE CODES FA211 ESTABILISHED PATIENT [facility] CHARGE DISPOSITION & COMMUNICATION FOLLOW UP 3 MONTHS (REASON: LOW BACK PAIN ) ELECTRONICALLY SIGNED BY TAMANNA HOOPER ON 12/23/2020 AT 09:14 AM EDT DISCLAIMER : THIS IS A VISIT SUMMARY EXTRACTED FROM THE [employer] CHART. IT IS NOT A COPY OF THE [employer] PROGRESS NOTE. SETHD
== END ==
LOC: M PAIN 11:30
PROVIDERS: ATTEND Family Medicine
DX: M96.1 Postlaminectomy syndrome, not elsewhere classified (principal); Z88.1 Allergy status to other antibiotic agents; Z91.09 Other allergy status, other than to drugs and biological substances; Z79.899 Other long term (current) drug therapy

== ENCOUNTER → 2021-03-24 | Outpatient (CLI) | payer OTHER ==
--- NOTE | 2021-03-26 04:57 | ECWPNPC ---
PATIENT NAME: RITU TURCIOS : 1970 GENDER: FEMALE VISIT DATE: 03/24/2021 DISCHARGE DATE: 03/24/21 1206 VISIT LOCKED DATE TIME: PHYSICIAN: LIDIA KHAN RESOURCE: LIDIA KHAN REASON FOR APPOINTMENT 1. LOW BACK PAIN HISTORY OF PRESENT ILLNESS GENERAL: HPI 50-YEAR-OLD FEMALE IN FOR CHRONIC PAIN FOLLOW-UP. SHE RATES HER PAIN CURRENTLY AT A 7 OUT OF 10 AND DESCRIBES IT INTERMITTENT AND SHARP. SHE FEELS HER MEDICATIONS ARE HELPFUL AND DENIES MED SIDE EFFECTS AT THIS TIME. PATIENT DOES ADMIT TO TAKING AN EXTRA DOSE OF HER MEDICATION SHE WAS EXPERIENCING EXACERBATED PAIN.. -. FALL RISK SCREENING: SCREENING : NO FALLS REPORTED IN THE LAST YEAR. PAIN SCREENING: PATIENT HAS A COMPLAINT OF ACUTE OR CHRONIC PAIN :YES LOCATION OF PAIN:LOW BACK INTENSITY OF PAIN (SCALE OF 1 TO 10):7 AVERAGE IS 7 WHAT DOES YOUR PAIN FEEL LIKE:INTERMITTENT, SHARP DURATION:INTERMITTENT, AWAKENS FROM SLEEP PAIN IS INCREASED BY:ACTIVITIES, PROLONGED STANDING PAIN IS DECREASED BY:USE OF PAIN MEDICATIONS, SITTING NURSING NOTE: -. PAIN CENTER INTAKE QUESTIONS: DO YOU HAVE A HISTORY OF MRSA? :NO DO YOU TAKE A BLOOD THINNERS? :NO DO YOU HAVE ANY BLEEDING DISORDERS? :NO ANY NEW NUMBNESS OR WEAKNESS IN YOUR LEGS OR ARMS? :NO ANY PACEMAKER,DEFIBRILLATOR, OR DORSAL COLUMN STIMULATOR? :NO DO YOU HAVE ANY RASHES OR OPEN SORES? :NO ARE YOU ALLERGIC TO IV DYE? :NO ARE YOU DIABETIC? :NO ANY NEW PROBLEMS WITH YOUR MEDICATIONS? :NO HAVE YOU RECEIVED A VACCINE IN THE PAST 30 DAYS? :NO DO YOU PLAN TO RECEIVE A VACCINE IN THE NEXT 21 DAYS? :YES DO YOU NEED ANY PRESCRIPTION? :NO DO YOU TAKE ANY IMMUNOSUPPRESSIVE MEDICATIONS? :NO IS THERE A CHANCE YOU COULD BE ? :NO ARE YOU BREAST FEEDING? :NO CURRENT MEDICATIONS TAKING CLONIDINE HCL 0.2 MG TABLET 1 TABLET ORALLY TID TAKING HAIR SKIN AND NAILS FORMULA - TABLET DIRECTED ORALLY TAKING LOSARTAN POTASSIUM 50 MG TABLET 1 TABLET ORALLY ONCE A DAY TAKING OXYCODONE HCL 5 MG TABLET 1 TABLET NEEDED ORALLY FOR PAIN EVERY 12 HRS MDD2 TAKING TRAMADOL HCL 50 MG TABLET 1 TABLET NEEDED ORALLY EVERY 6 HRS PRN PAIN MDD=4 NOT-TAKING HYDRALAZINE HCL 100 MG TABLET TABLET WITH FOOD ORALLY THREE TIMES A DAY AND A PRN DOSE NOT-TAKING TEKTURNA HCT 300-25 MG TABLET 1 TABLET ORALLY ONCE A DAY NOT-TAKING METOPROLOL SUCCINATE ER 100 MG TABLET EXTENDED RELEASE 24 HOUR 1 TABLET ORALLY BID UNKNOWN SPIRONOLACTONE 25 MG TABLET 1 TABLET ORALLY TWICE A DAY, NOTES: NONE LATELY UNKNOWN TIZANIDINE HCL 2 MG TABLET 1 TABLET ORALLY THREE TIMES A DAY FOR MUSCLE SPASMS, NOTES: NONE LATELY UNKNOWN CARISOPRODOL 350 MG TABLET 1 TABLET NEEDED ORALLY DAILY PRN SPASM MDD=1 UNKNOWN MOBIC 15 MG TABLET 1 TABLET ORALLY ONCE A DAY UNKNOWN CLONIDINE 0.1 MG/24HR PATCH WEEKLY 1 PATCH TO SKIN TRANSDERMAL UNKNOWN HYDROCODONE-ACETAMINOPHEN 5-300 MG TABLET 1 TABLET NEEDED ORALLY FOR PAIN EVERY 12 HRS MDD2, NOTES: NONE LATELY UNKNOWN LOSARTAN POTASSIUM 100 MG TABLET 1 TABLET ORALLY ONCE A DAY UNKNOWN PYRIDIUM 200 MG TABLET 1 TABLET AFTER MEALS ORALLY THREE TIMES A DAY UNKNOWN GABAPENTIN 100 MG CAPSULE 1 CAPSULE ORALLY FOR PAIN THREE TIMES A DAY UNKNOWN NORCO 10-325 MG TABLET 1 TABLET NEEDED ORALLY EVERY 6 HRS PRN SEVERE PAIN MDD=2 UNKNOWN VESICARE 10 MG TABLET 1 TABLET ORALLY ONCE A DAY UNKNOWN PREDNISONE 10 MG TABLET 1 TABLET ORALLY TAKE 4 TAB X 3 DAY, 3 TAB X 3 DAY, 2 TABX 3 DAY 1 TAB X 3 DAYS MEDICATION LIST REVIEWED AND RECONCILED WITH THE PATIENT PAST MEDICAL HISTORY HEMATURIA KIDNEY STONES CHRONIC BACK PAIN - WITH DORSAL STIMULATOR IMPLANT, REMOVED 2016 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 LATEX QUESTIONNAIRE LATEX ALLERGY : HAVE YOU EVER DEVELOPED ANY TYPE OF REACTION AFTER HANDLING LATEX PRODUCTS SUCH RUBBER GLOVES, CONDOMS, DIAPHRAGMS, BALLOONS, SOCKS, OR UNDERWEAR?NO LATEX ALLERGY : HAVE YOU EVER DEVELOPED ANY TYPE OF REACTION DURING OR AFTER DENTAL APPOINTMENT, VAGINAL/RECTAL EXAMINATION, SURGICAL PROCEDURE, OR ANY OTHER EXPOSURE?NO LATEX RISK : HAVE YOU EVER HAD ANY DIFFICULTY BREATHING OR HIVES AFTER EATING OR HANDLING ANY FRUITS, OR VEGETABLES; SUCH KIWI, BANANAS, STONE FRUITS, OR CHESTNUTSNO LATEX RISK : DO YOU HAVE A PREVIOUS PERSONAL HISTORY OF MORE THAN NINE SURGERIES, SPINA BIFIDA, OR REPEATED CATHERIZATIONS? NO LATEX RISK : ARE YOU FREQUENTLY EXPOSED TO LATEX PRODUCTS IN YOUR OCCUPATION?NO DATE ASKED : 03/24/2021 ALCOHOL USE: NO. ALCOHOL SCREENING DID YOU HAVE A DRINK CONTAINING ALCOHOL IN THE PAST YEAR?YES HOW OFTEN DID YOU HAVE SIX OR MORE DRINKS ON ONE OCCASION IN THE PAST YEAR?NEVER (0 POINTS) HOW MANY DRINKS DID YOU HAVE ON A TYPICAL DAY WHEN YOU WERE DRINKING IN THE PAST YEAR?1 OR 2 (0 POINTS) HOW OFTEN DID YOU HAVE A DRINK CONTAINING ALCOHOL IN THE PAST YEAR?MONTHLY OR LESS (1 POINT) POINTS1 INTERPRETATIONNEGATIVE RECREATIONAL DRUG USE DRUG USE?NO JEWISH [id number] CONGREGATION LANGUAGE LANGUAGES SPOKEN:SYRIAC LEARNING BARRIERS / SPECIAL NEEDS CHANGE FROM LAST VISIT?NO BARRIERS TO LEARNING?NO HEARING IMPAIRED?NO VISION IMPAIRED?YES :CORRECTIVE LENSES COGNITIVELY IMPAIRED?NO READINESS TO LEARN?YES LEARNING PREFERENCES?NO LEARNING CAPABILITIES PRESENT?YES EMOTIONAL BARRIERS?NO SPECIAL DEVICES?NO PUNCH HAND NEEDED?NO OCCUPATION: AT HOME. DIET: REGULAR. EXERCISE: NO REGULAR EXERCISE. MARITAL STATUS: . TODAY'S VISITNOTES FROM 0-10, WHAT LEVEL IS YOUR PAIN TODAY?7 - PFS REFERRAL NEEDED?NO CLERGY REFERRAL NEEDED?NO PUBLIC HEALTH REFERRAL NEEDED?NO WAS THE PROVIDER NOTIFIED OF ANY PERTINENT INFO?YES HAS THE PATIENT BEEN EDUCATED REGARDING HIS/HER PLAN OF CARE?YES HAS THE PATIENT BEEN EDUCATED REGARDING PAIN, THE RISK FOR PAIN, THE IMPORTANCE OF EFFECTIVE PAIN MANAGEMENT, AND THE PAIN ASSESSMENT PROCESS?YES ADVANCE DIRECTIVE ADVANCE DIRECTIVE DISCUSSED WITH PATIENT:YES DECLINED INFORMATION OR ASSISTANCE AT THIS TIME 09/27/2019 REVIEW OF SYSTEMS CONSTITUTIONAL: ANY RECENT FEVER NO . CHILLS NO . WEIGHT CHANGE OF UNKNOWN REASONS NO . GASTROENTEROLOGY: NEW UNEXPLAINABLE CHANGES IN BOWEL CONTROL NO . CONSTIPATION NO . GENITOURINARY: ANY NEW CHANGE IN BLADDER CONTROL? NO . NEUROLOGY: NEW ONSET DIZZINESS OR NEUROLOGICAL CHANGES NOT MENTIONED NO . NEW NUMBNESS OR PAIN PATTERNS NOT MENTIONED AND PERTINENT TO TODAY'S VISIT NO . CARDIOLOGY: NEW CHEST PRESSURE NO . PATIENT DENIES NO . RESPIRATORY: UNEXPLAINABLE COUGH NO . NEW SHORTNESS OF BREATH NO . VITAL SIGNS WT 161.6 LBS, HT 5'1", BMI 30.53 INDEX, BP 203/96 MM HG, REPEAT BP PATIENT REFUSED, HR 79 /MIN, RR 18 /MIN, TEMP 99.9 F, OXYGEN SAT % 99%, SAFE IN ENV? (Y/N) YES, REVIEWED BY: JHPATIENT REFUSED MANUAL BP RECHECK. PATIENT STATES "SHE HAS KIDNEY ISSUES AND KNOWS IT IS TIME FOR HER TO TAKE HER MEDICATION IN A HALF AN HOUR." PROVIDER NOTIFIED. DEVYN DE SOUZA. EXAMINATION GENERAL EXAMINATION: GENERALNO ACUTE DISTRESS, WELL NOURISHED AND HYDRATED. PSYCHAPPROPRIATE MOOD AND AFFECT . LUNGS:CLEAR TO AUSCULTATION BILATERALLY, NO WHEEZES, RHONCHI, RALES. HEART:NO MURMURS, REGULAR RATE AND RHYTHM. BACK:POINT TENDER ALONG LUMBAR SPINE, POSITIVE MODIFIED SLR RIGHT SIDE. MUSCULOSKELETAL:NOTABLE WEAKNESS OF THE RIGHT LOWER EXTREMITY, LEFT LOWER EXTREMITY WITHIN NORMAL LIMITS. ASSESSMENTS INTERVERTEBRAL DISC DISORDERS WITH RADICULOPATHY, LUMBOSACRAL REGION - M51.17 (PRIMARY) TREATMENT INTERVERTEBRAL DISC DISORDERS WITH RADICULOPATHY, LUMBOSACRAL REGION MED: PAIN NORCO TABLET 5MG/325MG ORALLY HYDROCODONE/ACETAMINOPHEN (ORDERED FOR 04/01/2021) MEDICATION: PAIN VALIUM TAB 5MG ORALLY (DIAZEPAM) (ORDERED FOR 04/01/2021) NOTES: 50-YEAR-OLD FEMALE IN FOR CHRONIC PAIN FOLLOW-UP. GIVEN PRESENTING SYMPTOMS AND RESULTS OF PHYSICAL EXAMINATION RECOMMEND LUMBAR EPIDURAL STEROID INJECTIONS WITH POSTPROCEDURAL FOLLOW-UP. DISCUSSED PATIENT TAKING EXTRA MEDICATION SHE SEES FIT AND SHE WAS NOTIFIED THAT THIS IS A VIOLATION OF HER NARCOTIC AGREEMENT AND GOING FORWARD SHOULD SHE DO THIS AGAIN SHE WILL BE TITRATED OFF HER MEDICATION AND DISCHARGE FROM THE PRACTICE. PATIENT HAS EXPRESSED UNDERSTANDING OF AND WAS IN AGREEMENT WITH TREATMENT PLAN. GIVEN TIME TO ASK QUESTIONS AND EXPRESS CONCERNS. ISTOP REGISTRY REVIEWED AND DEMONSTRATES COMPLLIANCE. (REF #[id number] ) BRINGS IN MEDICATIONS WHICH IS APPROPRIATE FOR WHAT WAS DISPENSED. RECENT URINE TOXICOLOGY REVIEWED. NO UNAUTHORIZED MEDICATIONS. NO ILLICIT SUBSTANCES AND PRESCRIBED MEDICATIONS WERE PRESENT. CLINICAL NOTES: PREPROCEDURE AND PROCEDURE INFORMATION PRINTED AND PROVIDED TO PATIENT. PATIENT VERBALIZED AN UNDERSTANDING. DEVYN DE SOUZA MA. PROCEDURE CODES FA211 ESTABILISHED PATIENT [facility] CHARGE DISPOSITION & COMMUNICATION FOLLOW UP POST PROCEDURE (REASON: LUMBAR EPIDURAL STEROID INJECTION ) ELECTRONICALLY SIGNED BY TAMANNA HOOPER ON 03/25/2021 AT 08:32 AM EDT DISCLAIMER : THIS IS A VISIT SUMMARY EXTRACTED FROM THE [employer] CHART. IT IS NOT A COPY OF THE [employer] PROGRESS NOTE. CHELSEA
== END ==
LOC: M PAIN 11:30
PROVIDERS: ATTEND Family Medicine
DX: M51.17 Intervertebral disc disorders with radiculopathy, lumbosacral region (principal); Z87.442 Personal history of urinary calculi; N28.89 Other specified disorders of kidney and ureter; Z79.891 Long term (current) use of opiate analgesic; Z79.899 Other long term (current) drug therapy; Z88.1 Allergy status to other antibiotic agents; Z88.2 Allergy status to sulfonamides; Z91.048 Other nonmedicinal substance allergy status

== ENCOUNTER → 2021-04-07 | Outpatient (CLI) | payer OTHER ==
[~2021-04-07] MED LIST changes: +DOK1CAP4 PO; -DOK1CAP7 PO
== END ==
LOC: M LABSMTC 13:41
PROVIDERS: ATTEND Anesthesiology
DX: Z20.828 Contact with and (suspected) exposure to other viral communicable diseases (principal); Z11.59 Encounter for screening for other viral diseases

== ENCOUNTER → 2021-04-12 | Outpatient (CLI) | payer OTHER ==
[~2021-04-12] MED LIST changes: +ISOVUE-M 300 61% 15ML VIAL As Ordered ONE; +LIDOCAINE 1% SDV 30ML VIAL As Ordered ONE; +NORCO, ANEXSIA 5/325MG TABLET (HYDROcodone/ACETAMINOPHEN) As Ordered ONE; +diazePAM 5MG TABLET As Ordered ONE; +methylPREDNISolone SUSP 40MG/ML 1ML VIAL (DEPO MEDROL) As Ordered ONE
--- NOTE | 2021-04-12 16:18 | REP ---
INDICATION: DETERMINE PROCEDURE. COMPARISON: None. TECHNIQUE: One view. 1.8 seconds of fluoroscopy time is reported FINDINGS: . A single last image hold fluoroscopically obtained spot radiograph of the lumbar spine is provided peer IMPRESSION: The procedural imaging. <Electronically signed by Amadeo Rucker > 04/12/21 [id number]
--- NOTE | 2021-04-13 09:30 | REP ---
INDICATION: LUMBAR EPIDURAL STEROID INJECTION. COMPARISON: None. TECHNIQUE: Three C-arm views lumbar spine. FINDINGS: A needle is seen at the L4-5 level. A small amount of contrast is injected. There is fixation at L5-S1. IMPRESSION: 12 seconds of fluoroscopy time was utilized. <Electronically signed by Noah Gandhi > 04/13/21 0936
== END ==
LOC: M PAIN 11:00
PROVIDERS: ATTEND Anesthesiology
DX: M51.17 Intervertebral disc disorders with radiculopathy, lumbosacral region (principal); Z86.14 Personal history of Methicillin resistant Staphylococcus aureus infection; Z88.1 Allergy status to other antibiotic agents; Z91.09 Other allergy status, other than to drugs and biological substances; Z79.899 Other long term (current) drug therapy
CPT/HCPCS: 62323; J1030; Q9967

== ENCOUNTER → 2021-05-12 | Outpatient (CLI) | payer OTHER ==
[~2021-05-12] MED LIST changes: -ISOVUE-M 300 61% 15ML VIAL As Ordered ONE; -LIDOCAINE 1% SDV 30ML VIAL As Ordered ONE; -NORCO, ANEXSIA 5/325MG TABLET (HYDROcodone/ACETAMINOPHEN) As Ordered ONE; -diazePAM 5MG TABLET As Ordered ONE; -methylPREDNISolone SUSP 40MG/ML 1ML VIAL (DEPO MEDROL) As Ordered ONE
== END ==
LOC: M PAIN 08:30
PROVIDERS: ATTEND Anesthesiology
DX: M51.16 Intervertebral disc disorders with radiculopathy, lumbar region (principal); M96.1 Postlaminectomy syndrome, not elsewhere classified; Z88.1 Allergy status to other antibiotic agents; Z91.09 Other allergy status, other than to drugs and biological substances; Z79.899 Other long term (current) drug therapy

== ENCOUNTER → 2021-06-29 | Outpatient (CLI) | payer OTHER ==
--- NOTE | 2021-06-29 14:49 | REP ---
INDICATION: SPONDYLOSIS. COMPARISON: None. TECHNIQUE: Four views FINDINGS: There has been previous L5-S1 fusion. There is posterior disc space narrowing seen at every level. Vertebral body height and alignment is within normal limits. There is mild anterior lipping. The pedicles are intact bilaterally. Flexion and extension bending views show no instability. There are chronic changes seen involving the imaged portion of the thoracic spine. IMPRESSION: No instability noted. Chronic changes as described above. <Electronically signed by Reid Selby > 06/29/21 0780
== END ==
LOC: M SOG 13:34
PROVIDERS: ATTEND Orthopaedic Surgery
DX: M47.896 Other spondylosis, lumbar region (principal)

== ENCOUNTER → 2021-07-01 | Outpatient (CLI) | payer OTHER | LOC: M LABSMTC 10:01 | PROVIDERS: ATTEND Anesthesiology | DX: Z01.812 Encounter for preprocedural laboratory examination (principal); Z20.822 Contact with and (suspected) exposure to COVID-19 ==

== ENCOUNTER → 2021-07-06 | Outpatient (CLI) | payer OTHER ==
[~2021-07-06] MED LIST changes: +BUPIVACAINE HCL 0.25% 30ML VIAL As Ordered ONE; +ISOVUE-M 300 61% 15ML VIAL As Ordered ONE; +LIDOCAINE 1% SDV 30ML VIAL As Ordered ONE; +dexameTHASONE 10MG/1ML VIAL PRES.FREE (J1100 PER 1MG) As Ordered ONE; +diazePAM 5MG TABLET As Ordered ONE; +oxyCODONE 5MG TAB As Ordered ONE
--- NOTE | 2021-07-06 17:10 | REP ---
INDICATION: RIGHT TRANSFORAMINAL EPIDURAL STEROID INJECTION L3-L4, L4. COMPARISON: None. TECHNIQUE: Multiple C-arm views lower lumbar spine. FINDINGS: Petty are seen along the lower lumbar spine. Small amount of contrast is injected. Surgical screws are seen at L5-S1. IMPRESSION: 93 seconds fluoroscopy time utilized. <Electronically signed by Noah Gandhi > 07/06/21 5038
== END ==
LOC: M PAIN 13:45
PROVIDERS: ATTEND Anesthesiology
DX: M51.17 Intervertebral disc disorders with radiculopathy, lumbosacral region (principal); M51.16 Intervertebral disc disorders with radiculopathy, lumbar region; Z88.1 Allergy status to other antibiotic agents; Z91.09 Other allergy status, other than to drugs and biological substances; Z79.899 Other long term (current) drug therapy
CPT/HCPCS: 64483; 64484; J1100; Q9967

== ENCOUNTER → 2021-07-15 | Outpatient (CLI) | payer OTHER ==
[~2021-07-15] MED LIST changes: -BUPIVACAINE HCL 0.25% 30ML VIAL As Ordered ONE; -ISOVUE-M 300 61% 15ML VIAL As Ordered ONE; -LIDOCAINE 1% SDV 30ML VIAL As Ordered ONE; -dexameTHASONE 10MG/1ML VIAL PRES.FREE (J1100 PER 1MG) As Ordered ONE; -diazePAM 5MG TABLET As Ordered ONE; -oxyCODONE 5MG TAB As Ordered ONE
--- NOTE | 2021-07-16 12:33 | REPVR ---
PROCEDURE INFORMATION: Exam: MR Lumbar Spine Without Contrast Exam date and time: 07/15/2021 2:45 PM Age: 50 years old Clinical indication: Low back pain; Prior surgery; Surgery date: 6+ months; Additional info: Postleminectomy syndrome TECHNIQUE: Imaging protocol: Multiplanar magnetic resonance images of the lumbar spine without intravenous contrast. COMPARISON: MRI-Spine, L.S. without con 10/08/2019 11:56 AM FINDINGS: Vertebrae: Anatomic alignment. No acute fracture seen. Spinal cord: The conus medullaris ends normally. Prior ALIF at L5-S1. Elsewhere, mild disc desiccation. No high-grade disc height loss. Prevertebral spondylosis is mild from L2-L3 through L4-L5. L1-L2: Mild disc bulge as well as mild to moderate facet arthropathy and ligamentum flavum buckling. No stenoses. L2-L3: Mild disc bulge as well as mild to moderate facet arthropathy and ligamentum flavum buckling. No stenoses. L3-L4: Moderate disc bulge, facet arthropathy and ligamentum flavum buckling. High-intensity zone in posterior disc margin without a focal disc protrusion or extrusion. Central spinal canal and lateral recess stenoses are mild. No significant foraminal stenoses. L4-L5: [id number]-kk-djbizwyd diffuse disc bulge as well as moderate facet arthropathy and ligamentum flavum buckling. Central spinal canal stenosis is mild. Mild left neural foraminal stenosis. No significant right neural foraminal narrowing. L5-S1: Postoperative changes. There is posterior laminectomy. Right paracentral disc protrusion or osteophyte is again demonstrated near but not frankly impinging upon the right S1 nerve root. The central spinal canal is patent. No significant foraminal stenoses. The axial T1 weighted sequence suggests right epidural and perineural fibrosis. Soft tissues: Nonspecific edema in the back subcutaneous fat potentially dependent/positional. Kidneys and ureters: The left kidney is severely atrophic. Compensatory enlargement of the right kidney. IMPRESSION: 1. No significant interval change. 2. Right epidural and perineural fibrosis again demonstrated at L5-S1. 3. Mild central spinal canal and lateral recess stenoses at L3-L4. 4. Mild central spinal canal stenosis at L4-L5. Mild left neural foraminal stenosis. Electronically signed by: Megha Schilling On 07/16/2021 12:32:33 PM
== END ==
LOC: M PLAIMG 13:21
PROVIDERS: ATTEND Orthopaedic Surgery
DX: M96.1 Postlaminectomy syndrome, not elsewhere classified (principal)

== ENCOUNTER → 2021-08-04 | Outpatient (CLI) | payer OTHER ==
[~2021-08-04] MED LIST changes: +LOSA100T45 PO; -LOSA100T50 PO
== END ==
LOC: M PAIN 10:15
PROVIDERS: ATTEND Anesthesiology
DX: M96.1 Postlaminectomy syndrome, not elsewhere classified (principal); Z88.1 Allergy status to other antibiotic agents; Z91.09 Other allergy status, other than to drugs and biological substances; Z79.899 Other long term (current) drug therapy

== ENCOUNTER → 2021-10-22 | Outpatient (CLI) | payer OTHER ==
[~2021-10-22] MED LIST changes: +DULO1CAP6; +MORP15TA2; +OXYC-517
== END ==
LOC: M PAIN 14:15 → M TMPAIN 14:15
PROVIDERS: ATTEND Anesthesiology
DX: M96.1 Postlaminectomy syndrome, not elsewhere classified (principal); Z88.1 Allergy status to other antibiotic agents; Z91.09 Other allergy status, other than to drugs and biological substances; Z79.899 Other long term (current) drug therapy

== ENCOUNTER 2021-10-28 09:31 | Emergency (ER) | payer OTHER ==
[~2021-10-28] VITALS: Ht 154.9 cm; Wt 76.8 kg
[~2021-10-28 09:31] MED LIST changes: -DULO1CAP6; -MORP15TA2; -OXYC-517
[2021-10-28] MEDS ORDERED: DULO1CAP6 (10:02)
[2021-10-28] MEDS ORDERED: MORP15TA2 (10:02)
[2021-10-28] MEDS ORDERED: OXYC-517 (10:02)
[2021-10-28 12:08] LABS: BLOOD UREA NITROGEN 13 MG/DL (7-18); CALCIUM LEVEL 9.9 MG/DL (8.5-10.1); CARBON DIOXIDE LEVEL 25 MEQ/L (21-32); CHLORIDE LEVEL 105 MEQ/L (98-107); CREATININE FOR GFR 0.62 MG/DL (0.55-1.30); GLOMERULAR FILTRATION RATE > 60.0 (>51); GLUCOSE, FASTING 90 MG/DL (70-100); POTASSIUM SERUM 4.5 MEQ/L (3.5-5.1); SODIUM LEVEL 138 MEQ/L (136-145)
[2021-10-28 12:53] LABS: HEMATOCRIT 41.4 % (36.0-47.0); HEMOGLOBIN 12.8 g/dl (12.0-15.5); MEAN CORPUSCULAR HEMOGLOBIN 28.1 pg (27.0-33.0); MEAN CORPUSCULAR HGB CONC 30.9 g/dl (32.0-36.5); PLATELET COUNT, AUTOMATED 246 10^3/uL (150-450); RED BLOOD COUNT 4.55 10^6/uL (4.00-5.40)
[2021-10-28] MEDS ORDERED: METOPROLOL SUCC (TopROL XL) 100MG *XL* TAB PO ONE (13:00)
[2021-10-28 13:15] VITALS: BP 190/94
[2021-10-28] MEDS ORDERED: METO1TAB33 PO ×3 (14:21→14:24)
[2021-10-28 14:38] VITALS: BP 197/93
== END 2021-10-28 14:44 | disposition home or self-care (01) ==
LOC: M ED 09:31
DX: I10 Essential (primary) hypertension (principal); Z90.5 Acquired absence of kidney; G89.29 Other chronic pain; M54.9 Dorsalgia, unspecified; Z88.1 Allergy status to other antibiotic agents; Z88.2 Allergy status to sulfonamides; Z79.899 Other long term (current) drug therapy

== ENCOUNTER → 2021-11-12 | Outpatient (CLI) | payer OTHER ==
[~2021-11-12] MED LIST changes: +DULO1CAP6; +MORP15TA2; +OXYC-517
== END ==
LOC: M TMPAIN 15:00 → M PAIN 15:00
PROVIDERS: ATTEND Anesthesiology
DX: M96.1 Postlaminectomy syndrome, not elsewhere classified (principal); Z88.1 Allergy status to other antibiotic agents; Z91.09 Other allergy status, other than to drugs and biological substances; Z79.899 Other long term (current) drug therapy

== ENCOUNTER → 2021-11-19 | Outpatient (CLI) | payer OTHER | LOC: M RAD 07:20 | PROVIDERS: ATTEND Anesthesiology | DX: M96.1 Postlaminectomy syndrome, not elsewhere classified (principal) ==

== ENCOUNTER → 2021-11-29 | Outpatient (CLI) | payer OTHER | LOC: M PAIN 15:15 | PROVIDERS: ATTEND Anesthesiology | DX: M96.1 Postlaminectomy syndrome, not elsewhere classified (principal); Z88.1 Allergy status to other antibiotic agents; Z91.09 Other allergy status, other than to drugs and biological substances; Z79.899 Other long term (current) drug therapy ==

== ENCOUNTER → 2021-12-22 | Outpatient (CLI) | payer OTHER | LOC: M PAIN 14:30 | PROVIDERS: ATTEND Nurse Practitioner Family | DX: M96.1 Postlaminectomy syndrome, not elsewhere classified (principal); Z88.1 Allergy status to other antibiotic agents; Z91.09 Other allergy status, other than to drugs and biological substances; Z79.899 Other long term (current) drug therapy ==

== ENCOUNTER → 2022-06-27 | Outpatient (CLI) | payer OTHER | LOC: M WHC 07:26 | PROVIDERS: ATTEND Student in an Organized Health Care Education/Training Program | DX: Z12.31 Encounter for screening mammogram for malignant neoplasm of breast (principal); R92.8 Other abnormal and inconclusive findings on diagnostic imaging of breast; N63.24 Unspecified lump in the left breast, lower inner quadrant ==

== ENCOUNTER → 2022-07-13 | Outpatient (CLI) | payer OTHER | LOC: M WHC 08:02 | PROVIDERS: ATTEND Student in an Organized Health Care Education/Training Program | DX: R92.8 Other abnormal and inconclusive findings on diagnostic imaging of breast (principal); N63.24 Unspecified lump in the left breast, lower inner quadrant | CPT/HCPCS: 76642; 77065; G0279 ==

== ENCOUNTER → 2022-10-10 | Outpatient (CLI) | payer OTHER | LOC: M PAIN 08:45 | PROVIDERS: ATTEND Nurse Practitioner Family | DX: M96.1 Postlaminectomy syndrome, not elsewhere classified (principal); G89.29 Other chronic pain; Z88.1 Allergy status to other antibiotic agents; Z91.09 Other allergy status, other than to drugs and biological substances; Z79.899 Other long term (current) drug therapy ==

== ENCOUNTER → 2023-06-28 | Outpatient (CLI) | payer OTHER ==
[~2023-06-28] MED LIST changes: -LOSA100T45 PO; +LOSA100T46 PO
== END ==
LOC: M WHC 08:54
PROVIDERS: ATTEND Family Medicine
DX: Z12.31 Encounter for screening mammogram for malignant neoplasm of breast (principal); Z80.3 Family history of malignant neoplasm of breast; Z80.49 Family history of malignant neoplasm of other genital organs

== ENCOUNTER 2023-11-07 08:57 | Day surgery (SDC) | payer OTHER ==
[~2023-11-07] VITALS: Ht 154.9 cm; Wt 83.0 kg
[~2023-11-07 08:57] MED LIST changes: -CLON0.3T; +CLON0.3T PO; +FERR325T81 PO; -HYDR-3910; +HYDR25TA87; -SPIR-10; +SPIR-10 PO
[2023-11-07] MEDS: NS 1,000 ML IV ONE (09:41)
[2023-11-07] MEDS ORDERED: LIDOCAINE 2% 100MG/5ML SDV (FOR ANES.) As Ordered ONE (10:50)
[2023-11-07] MEDS ORDERED: propofoL 200 MG/20 ML VIAL As Ordered ONE (10:50)
[2023-11-07 11:24] VITALS: TEMP 96.9
[2023-11-07 11:45] VITALS: BP 149/84; O2SAT 99
== END 2023-11-07 11:49 | disposition home or self-care (01) ==
LOC: M OPP 08:57
PROVIDERS: ATTEND Internal Medicine Gastroenterology
DX: K63.5 Polyp of colon (principal); K64.4 Residual hemorrhoidal skin tags; K64.8 Other hemorrhoids; K92.1 Melena; Z79.899 Other long term (current) drug therapy; Z88.1 Allergy status to other antibiotic agents; Z88.2 Allergy status to sulfonamides

== ENCOUNTER → 2024-01-26 | Outpatient (CLI) | payer OTHER ==
[~2024-01-26] MED LIST changes: +METO200T15; -METO200T28
== END ==
LOC: M PAIN 17:00
PROVIDERS: ATTEND Nurse Practitioner Family
DX: M47.816 Spondylosis without myelopathy or radiculopathy, lumbar region (principal); M96.1 Postlaminectomy syndrome, not elsewhere classified; G89.29 Other chronic pain; Z79.899 Other long term (current) drug therapy; Z88.1 Allergy status to other antibiotic agents; Z88.2 Allergy status to sulfonamides; Z91.048 Other nonmedicinal substance allergy status

== ENCOUNTER → 2024-03-06 | Outpatient (CLI) | payer OTHER | LOC: M PAIN 15:00 | PROVIDERS: ATTEND Anesthesiology | DX: M96.1 Postlaminectomy syndrome, not elsewhere classified (principal); M54.50 Low back pain, unspecified; M79.18 Myalgia, other site; G89.29 Other chronic pain; M47.816 Spondylosis without myelopathy or radiculopathy, lumbar region; Z79.899 Other long term (current) drug therapy | CPT/HCPCS: 76000; G0463 ==

== ENCOUNTER → 2024-04-18 | Outpatient (CLI) | payer OTHER ==
[~2024-04-18] MED LIST changes: +TRIAMCINOLONE ACETONIDE SUSP 40MG/ML 1ML VIAL As Ordered ONE
== END ==
LOC: M PAIN 08:15
PROVIDERS: ATTEND Anesthesiology
DX: M79.18 Myalgia, other site (principal); G89.29 Other chronic pain; N28.9 Disorder of kidney and ureter, unspecified; Z79.899 Other long term (current) drug therapy; Z88.1 Allergy status to other antibiotic agents; Z88.2 Allergy status to sulfonamides; Z91.048 Other nonmedicinal substance allergy status
CPT/HCPCS: 20552; J0665; J3301

== ENCOUNTER → 2024-05-20 | Outpatient (CLI) | payer OTHER ==
[~2024-05-20] MED LIST changes: -TRIAMCINOLONE ACETONIDE SUSP 40MG/ML 1ML VIAL As Ordered ONE
== END ==
LOC: M PAIN 09:15
PROVIDERS: ATTEND Nurse Practitioner Family
DX: G89.29 Other chronic pain (principal); M96.1 Postlaminectomy syndrome, not elsewhere classified; Z90.5 Acquired absence of kidney; N28.9 Disorder of kidney and ureter, unspecified; Z79.899 Other long term (current) drug therapy; Z88.1 Allergy status to other antibiotic agents; Z88.2 Allergy status to sulfonamides; Z91.048 Other nonmedicinal substance allergy status

== ENCOUNTER → 2024-06-12 | Outpatient (CLI) | payer OTHER | LOC: M WHC 16:22 | PROVIDERS: ATTEND Advanced Practice Midwife | DX: Z12.31 Encounter for screening mammogram for malignant neoplasm of breast (principal) ==

== ENCOUNTER → 2024-07-12 | Outpatient (CLI) | payer OTHER ==
[~2024-07-12] MED LIST changes: +ISOVUE-M 300 61% 15ML VIAL As Ordered ONE; +LIDOCAINE 1% SDV 30ML VIAL As Ordered ONE; +dexAMETHasone 10MG/1ML VIAL PRES.FREE As Ordered ONE; +diazePAM 5MG TABLET As Ordered ONE; +diphenhydrAMINE 25MG CAP As Ordered ONE; +oxyCODONE 5MG TAB As Ordered ONE
== END ==
LOC: M PAIN 08:15
PROVIDERS: ATTEND Anesthesiology
DX: M96.1 Postlaminectomy syndrome, not elsewhere classified (principal); G89.29 Other chronic pain; M54.50 Low back pain, unspecified; Z79.899 Other long term (current) drug therapy; Z88.1 Allergy status to other antibiotic agents; Z88.2 Allergy status to sulfonamides; Z91.048 Other nonmedicinal substance allergy status
CPT/HCPCS: 62323; J1100; Q9967

== ENCOUNTER → 2024-08-20 | Outpatient (CLI) | payer OTHER ==
[~2024-08-20] MED LIST changes: -ISOVUE-M 300 61% 15ML VIAL As Ordered ONE; -LIDOCAINE 1% SDV 30ML VIAL As Ordered ONE; -dexAMETHasone 10MG/1ML VIAL PRES.FREE As Ordered ONE; -diazePAM 5MG TABLET As Ordered ONE; -diphenhydrAMINE 25MG CAP As Ordered ONE; -oxyCODONE 5MG TAB As Ordered ONE
== END ==
LOC: M PAIN 16:30
PROVIDERS: ATTEND Anesthesiology
DX: M25.551 Pain in right hip (principal); G89.29 Other chronic pain; M96.1 Postlaminectomy syndrome, not elsewhere classified; M54.50 Low back pain, unspecified; Z79.899 Other long term (current) drug therapy; Z88.1 Allergy status to other antibiotic agents; Z88.2 Allergy status to sulfonamides; Z91.048 Other nonmedicinal substance allergy status

== ENCOUNTER → 2024-08-30 | Outpatient (CLI) | payer OTHER | LOC: M PLAIMG 08:55 | PROVIDERS: ATTEND Internal Medicine | DX: M25.551 Pain in right hip (principal); S73.191A Other sprain of right hip, initial encounter; W19.XXXA Unspecified fall, initial encounter; M16.11 Unilateral primary osteoarthritis, right hip; M25.451 Effusion, right hip; M24.851 Other specific joint derangements of right hip, not elsewhere classified ==

== ENCOUNTER → 2024-09-19 | Outpatient (CLI) | payer OTHER | LOC: M PAIN 10:15 | PROVIDERS: ATTEND Nurse Practitioner Family | DX: M96.1 Postlaminectomy syndrome, not elsewhere classified (principal); G89.29 Other chronic pain; Z79.891 Long term (current) use of opiate analgesic; Z79.899 Other long term (current) drug therapy; Z88.1 Allergy status to other antibiotic agents; Z88.2 Allergy status to sulfonamides; Z91.048 Other nonmedicinal substance allergy status ==

== ENCOUNTER → 2024-11-15 | Outpatient (CLI) | payer OTHER ==
[~2024-11-15] VITALS: Ht 154.9 cm; Wt 82.7 kg
[~2024-11-15] MED LIST changes: +ALBUTEROL SULFATE 2.5MG/0.5ML INH NEB SOLN INH PRN; +CARI-555; -CARI1TAB7; +EPINEPHrine INJ 1 MG/ML 1ML AMP IM PRN; +diphenhydrAMINE 50MG/ML VIAL IV PRN; +methylPREDNISolone 125MG 2ML VIAL IV PRN
[2024-11-15 10:30] VITALS: BP 153/83; O2SAT 99
[2024-11-15] MEDS: FERRIC CARBOXYMALTOSE 750 MG (VIAL MATE) IN 100ML NS IV ONE (10:48)
[2024-11-15 11:30] VITALS: BP 160/78; O2SAT 99
== END ==
LOC: M INFU 09:45
PROVIDERS: ATTEND Internal Medicine
DX: E61.1 Iron deficiency (principal); Z88.1 Allergy status to other antibiotic agents; Z88.2 Allergy status to sulfonamides
CPT/HCPCS: 96374; J1439

== ENCOUNTER 2024-11-22 10:25 | Outpatient (CLI) | payer OTHER ==
[~2024-11-22] VITALS: Ht 154.9 cm; Wt 81.4 kg
[2024-11-22 10:25] VITALS: BP 151/75; O2SAT 97
[2024-11-22] MEDS: FERRIC CARBOXYMALTOSE 750 MG (VIAL MATE) IN 100ML NS IV ONE (10:29)
[2024-11-22 10:52] VITALS: BP 146/76; O2SAT 99
== END 2024-11-22 10:50 ==
LOC: M INFU 10:25
PROVIDERS: ATTEND Internal Medicine
DX: E61.1 Iron deficiency (principal); Z88.1 Allergy status to other antibiotic agents; Z88.2 Allergy status to sulfonamides
CPT/HCPCS: 96365; J1439

== ENCOUNTER → 2025-06-16 | Outpatient (CLI) | payer OTHER ==
[~2025-06-16] MED LIST changes: -ALBUTEROL SULFATE 2.5MG/0.5ML INH NEB SOLN INH PRN; -EPINEPHrine INJ 1 MG/ML 1ML AMP IM PRN; +IRON325T2 PO; +LIDO1ADH93; -LIDO5DIS41; +OXYC-517 PO; +TELM1TAB35 PO; -diphenhydrAMINE 50MG/ML VIAL IV PRN; -methylPREDNISolone 125MG 2ML VIAL IV PRN
== END ==
LOC: M WHC 07:58
PROVIDERS: ATTEND Internal Medicine
DX: Z12.31 Encounter for screening mammogram for malignant neoplasm of breast (principal)